=== PATIENT | male | born 1935 | race Caucasian/White ===

== ENCOUNTER 2016-12-04 10:14 | Inpatient (IN) ==
[2016-12-04] MEDS ORDERED: IOPAMIDOL 100 ML BOTTLE IV ONE (10:15)
[2016-12-04] MEDS ORDERED: 0.9 % SODIUM CHLORIDE 1,000 ML IV ONE ×2 (11:03→15:43)
[2016-12-04 11:05] LABS: Mean Cell Volume 92.3 fL (80.0-100.0); Mean Corpuscular HGB Conc 32.7 g/dL (31.0-36.0); Mean Corpuscular Hemoglobin 30.2 pg (26.0-34.0); Platelet Count 272 K/mcL (140-440); Red Cell Distribution Width 13.4 % (11.5-14.5)
[2016-12-04 11:25] LABS: ALT/SGPT 19 U/l (0-40); Albumin 3.7 gm/dL (3.2-5.2); Albumin/Globulin Ratio 1.1 (1.0-2.3); Alkaline Phosphatase 52 U/L (39-117); Blood Urea Nitrogen 24 mg/dl (8-23)
[2016-12-04 11:42] LABS: Band Neutrophils % 62 % (0-10); Lymphocytes % 10 % (15-49); Metamyelocytes % 3 % (0-0); Monocytes % (Manual) 2 % (1-12); Platelet Estimate NORMAL (NORMAL); RBC Morphology NORMAL (NORMAL); Segmented Neutrophils % 23 % (38-78)
[2016-12-04] MEDS: 0.9 % SODIUM CHLORIDE 1,000 ML IV SCH ×3 (12:32→21:44)
[2016-12-04] MEDS: 0.9 % SODIUM CHLORIDE 250 ML IV SCH ×2 (12:32→15:27)
[2016-12-04] MEDS ORDERED: LIDOCAINE JEL 2% 1 TUBE 30GM TOPICAL ONE (12:42)
[2016-12-04 13:26] LABS: Appearance,Urine HAZY; Bacteria,Urine 0 /hpf (0); Bilirubin,Urine NEG (NEG); Color,Urine YELLOW; Glucose,Urine (UA) NEGATIVE (NEG); Leukocyte Esterase,Urine NEG /uL (NEG); Mucus,Urine MANY /hpf (0); Nitrate,Urine NEG (NEG); Protein,Urine 30 mg/dL (NEG); Specific Gravity,Urine 1.024 (1.000-1.035); Urine Blood NEG mg/dL (<0.03); Urine Hyaline Cast 18 /lpf (0-2); Urine RBC 3 /hpf (0-1); Urine Squamous Epithelial Cell < 1 /hpf (0-4); Urine WBC 3 /hpf (0-4); Urobilinogen,Urine NEG (NEG)
--- NOTE | 2016-12-04 14:27 | XRay Report ---
HISTORY: Reason for Exam:belly pain FINDINGS: Free intra-abdominal air is present beneath both left and right diaphragm. There are couple air-fluid levels in nondilated large and small intestine within the mid abdomen. Small infiltrate is present laterally at the left lung base. This could be pneumonia or atelectasis. There are degenerative changes in the thoracic and lumbar spine. IMPRESSION: Free intra-abdominal air. Unless the patient has had recent abdominal surgery, perforated bowel should be suspected. Small left lower lobe pulmonary infiltrate Dr. Rousseau was called with results Interpreted and Authenticated by: Camilo Weller 12/04/16
--- NOTE | 2016-12-04 14:41 | Emergency Department Note ---
Nausea/Vomiting/Diarrhea HPI - General Chief complaint: Nausea/Vomiting/Diarrhea Stated complaint: n/v/d for 4 days Time Seen by Provider: 12/04/16 11:01 Source: patient, family Mode of arrival: EMS Limitations: no limitations - History of Present Illness HPI Narrative: 81-year-old male with a history of nausea, vomiting and diarrhea present for the past 3 days. started on Sunday night. Diarrhea frequently early this morning. No blood in the stools. he has had generalized lower abdominal pain for the past 2 days in the both the right and the left lower quadrant. He is afebrile. Denies constipation, hematemesis or melena. Denies urgency, frequency or dysuria - Related Data Home Medications Medication Instructions Recorded Confirmed Aspirin [Ecotrin] 81 mg PO DAILY 03/18/15 12/04/16 Donepezil [Aricept] 5 mg PO HS 03/18/15 12/04/16 Finasteride [Proscar] 5 mg PO DAILY 03/18/15 12/04/16 Omeprazole [Prilosec] 20 mg PO DAILY 03/18/15 12/04/16 Pravastatin [Pravachol] 40 mg PO HS 03/18/15 12/04/16 Allergies Allergy/AdvReac Type Severity Reaction Status Date / Time No Known Drug Allergies Allergy Verified 12/04/16 10:25 Review of Systems All systems ED: reviewed and negative except as stated. Constitutional: Denies: fever Eyes: Denies: eye pain ENT ED: Denies: ear pain Cardiovascular: Denies: chest pain, palpitations Respiratory: Denies: cough Gastrointestinal: Reports: abdominal pain, nausea, vomiting, diarrhea. Denies: constipation, hematemesis, melena, hematochezia Genitourinary: Reports: as per HPI. Denies: urgency, dysuria, frequency Musculoskeletal: Reports: back pain Integumentary: Denies: rash Neurological: Denies: headache Psychiatric: Denies: anxiety Endocrine: Denies: fatigue Hematological/Lymphatic: Denies: easy bleeding Allergic/Immunologic: Denies: facial swelling Past Medical History - Past Medical History Medical history: Reports: other (high cholesterol and GERD memory issues) Physical Exam - General Limitations: no limitations General appearance: alert - Head Head exam: atraumatic, normocephalic - Eye Eye exam: Present: normal appearance, PERRL - ENT ENT exam: normal exam, normal oropharynx - Neck Neck exam: Present: normal inspection, full ROM. Absent: trachea midline - Chest Chest inspection: Present: normal inspection, symmetric chest wall rise - Respiratory Respiratory exam: Present: normal lung sounds bilaterally. Absent: respiratory distress, wheezes - Cardiovascular Cardiovascular exam: Present: regular rate, normal rhythm. Absent: bradycardia , tachycardia, irregular rhythm - Abdominal Exam Abdominal exam: Present: soft. Absent: distention, tenderness, guarding, rebound, rigidity - exam: Present: normal inspection - Extremities Exam Extremities exam: Present: normal inspection, full ROM - Back Exam Back exam: Present: normal inspection, full ROM. Absent: tenderness - Neurological Exam Neurological exam: Present: alert, oriented X3, CN II-XII intact - Psychiatric Psychiatric exam: Present: normal affect, normal mood - Skin Skin exam: Present: warm, dry, intact, normal color Course Vital Signs Temperature 98.7 F 12/04/16 10:21 Pulse Rate 88 12/04/16 10:21 Respiratory Rate 16 12/04/16 10:21 Blood Pressure 99/74 12/04/16 10:21 Pulse Oximetry (%) 95 12/04/16 10:21 Temperature 98.7 F 12/04/16 10:21 Pulse Rate 83 12/04/16 15:26 Respiratory Rate 24 12/04/16 15:26 Blood Pressure 100/88 12/04/16 15:26 Pulse Oximetry (%) 95 12/04/16 15:26 Nausea/Vomiting/Diarrhea - [facility] Narrative Medical decision making narrative: WBC was 9000, with 63 bands, 23 segs. A two-view x-ray reveals free air and CT of the abdomen with Gastrografin is being performed. The Eren has been informed and he states is okay to give the Gastrografin. Chest was clear. The chem panel creatinine 1.5 The lactic was elevated at 4. ct shows probable peptic perforation. Dr Jason here to elvaluate at 4:10 pm - Lab Data Result diagrams: 12/04/16 10:35 12/04/16 10:35 Lab Results 12/04/16 12/04/16 12/04/16 Range/Units 10:35 10:35 12:48 WBC 9.0 (4.5-11.0) K/mcL RBC 5.00 (4.50-5.90) M/mcL Hgb 15.1 (13.5-16.5) g/dL Hct 46.2 (41.0-55.0) % MCV 92.3 (80.0-100.0) fL MCH 30.2 (26.0-34.0) pg MCHC 32.7 (31.0-36.0) g/dL RDW 13.4 (11.5-14.5) % Plt Count 272 (140-440) K/mcL MPV 9.3 (7.4-10.4) fL Total Counted 100 Seg Neutrophils % 23 L (38-78) % Band Neutrophils % 62 H (0-10) % Lymphocytes % 10 L (15-49) % Monocytes % (Manual) 2 (1-12) % Metamyelocytes % 3 H (0-0) % Platelet Estimate Normal (NORMAL) RBC Morphology Normal (NORMAL) VBG Lactic Acid (0.5-2.2) mmol/L Sodium 135 (133-145) mmol/L Potassium 3.6 (3.3-5.1) mmol/L Chloride 96 (96-108) mmol/L Carbon Dioxide 20 L (22-30) mmol/L Anion Gap 19.0 H (8-16) BUN 24 H (8-23) mg/dl Creatinine 1.5 H (0.7-1.2) mg/dl GFR Calculation 43 Glucose 163 H (70-105) mg/dL Calcium 8.7 (8.6-10.4) mg/dl Total Bilirubin 0.5 (0.0-1.0) mg/dL AST 28 (0-37) U/l ALT 19 (0-40) U/l Alkaline Phosphatase 52 (39-117) U/L Total Protein 7.1 (5.9-8.4) gm/dL Albumin 3.7 (3.2-5.2) gm/dL Globulin 3.4 (2.2-3.7) gm/dL Albumin/Globulin Ratio 1.1 (1.0-2.3) Urine Color Yellow Urine Appearance Hazy Urine pH 5.0 (5.0-9.0) Ur Specific [place] 1.024 (1.000-1.035) Urine Protein 30 A (NEG) mg/dL Urine Glucose (UA) Negative (NEG) mg/dL Urine Ketones Neg (NEG) mg/dL Urine Occult Blood Neg (<0.03) mg/dL Urine Nitrate Neg (NEG) Urine Bilirubin Neg (NEG) mg/dL Urine Urobilinogen Neg (NEG) mg/dL Ur Leukocyte Esterase Neg (NEG) /uL Urine RBC 3 H (0-1) /hpf Urine WBC 3 (0-4) /hpf Ur Squamous Epith Cells < 1 (0-4) /hpf Urine Bacteria 0 (0) /hpf Hyaline Casts 18 H (0-2) /lpf Urine Mucus Many A (0) /hpf Ur Culture Indicated? No 12/04/16 Range/Units 14:50 WBC (4.5-11.0) K/mcL RBC (4.50-5.90) M/mcL Hgb (13.5-16.5) g/dL Hct (41.0-55.0) % MCV (80.0-100.0) fL MCH (26.0-34.0) pg MCHC (31.0-36.0) g/dL RDW (11.5-14.5) % Plt Count (140-440) K/mcL MPV (7.4-10.4) fL Total Counted Seg Neutrophils % (38-78) % Band Neutrophils % (0-10) % Lymphocytes % (15-49) % Monocytes % (Manual) (1-12) % Metamyelocytes % (0-0) % Platelet Estimate (NORMAL) RBC Morphology (NORMAL) VBG Lactic Acid 4.1 H* (0.5-2.2) mmol/L Sodium (133-145) mmol/L Potassium (3.3-5.1) mmol/L Chloride (96-108) mmol/L Carbon Dioxide (22-30) mmol/L Anion Gap (8-16) BUN (8-23) mg/dl Creatinine (0.7-1.2) mg/dl GFR Calculation Glucose (70-105) mg/dL Calcium (8.6-10.4) mg/dl Total Bilirubin (0.0-1.0) mg/dL AST (0-37) U/l ALT (0-40) U/l Alkaline Phosphatase (39-117) U/L Total Protein (5.9-8.4) gm/dL Albumin (3.2-5.2) gm/dL Globulin (2.2-3.7) gm/dL Albumin/Globulin Ratio (1.0-2.3) Urine Color Urine Appearance Urine pH (5.0-9.0) Ur Specific [place] (1.000-1.035) Urine Protein (NEG) mg/dL Urine Glucose (UA) (NEG) mg/dL Urine Ketones (NEG) mg/dL Urine Occult Blood (<0.03) mg/dL Urine Nitrate (NEG) Urine Bilirubin (NEG) mg/dL Urine Urobilinogen (NEG) mg/dL Ur Leukocyte Esterase (NEG) /uL Urine RBC (0-1) /hpf Urine WBC (0-4) /hpf Ur Squamous Epith Cells (0-4) /hpf Urine Bacteria (0) /hpf Hyaline Casts (0-2) /lpf Urine Mucus (0) /hpf Ur Culture Indicated? Disposition Clinical Impression: Perforated peptic ulcer Disposition: Xfer As Inpt ([facility]) Condition: Undetermined Referrals: Naman Ward MD [Primary Care Provider] -
[2016-12-04] MEDS ORDERED: PIPERACILLIN SODIUM/TAZOBACTAM 3.375 GM in DEXTROSE 5% IN WATER 50 ML IV SCH (14:45)
--- NOTE | 2016-12-04 15:45 | Cat Scan Report ---
CLINICAL INFORMATION: Reason for Exam:free air on plain film xray and abdominal pain COMPARISON: None. Patient was imaged following dilute Gastrografin contrast given orally. No IV contrast was given due to elevated creatinine level. The patient was scanned from the lung bases the symphysis pubis. Sagittal and coronal reformats were created. FINDINGS:There is mild pulmonary fibrosis in both lungs with the greatest involvement in the lingula and the anterior basal segment left lower lobe. There is mild honeycombing in the lingula. Densely calcified plaques are present in the left anterior descending, left main and circumflex coronary arteries. There is moderate involvement of the right coronary. There are several small scattered bubbles of air throughout the mid and upper abdomen bilaterally. There are also small nonlocalizing pockets of free fluid in the peritoneal space in both sides of the mid and upper abdomen as well some free fluid in the lesser sac. There is no extravasation of the oral contrast from the stomach or small bowel into the peritoneum. The wall of the pylorus appears abnormally thickened measuring up to 1.5 cm. And also is not clearly identified. No free peritoneal air or fluid are seen adjacent to the pylorus. Despite of the thickening of the wall, there is no evidence of gastric outlet obstruction. The small bowel pattern appears normal. The colon is decompressed. There are scattered diverticula throughout the colon with the greatest number in the sigmoid. There is no evidence of acute diverticulitis. No free fluid is present deep in the pelvis. There is no evidence of an abscess in the abdomen or pelvis. A fat-containing umbilical hernia is noted. 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 There are multiple radiation implant seeds in the prostate. No mass is seen in or adjacent to the prostate. No lytic or blastic bone metastasis are present. Images of the liver, spleen, pancreas and adrenals show no abnormality. There are no gallstones and no dilatation of the bile ducts. A small simple cyst is present in the left kidney. The kidneys are otherwise normal. IMPRESSION: Small amount free fluid and free air in the mid and upper abdomen bilaterally. This does not localize. Abnormally thickened wall of the pylorus which may due to peptic ulcer disease or muscle hyperplasia. Diverticulosis with the greatest involvement in the sigmoid colon Dr. Rousseau was called with results Interpreted and Authenticated by: Camilo Weller 12/04/16
[2016-12-04] MEDS ORDERED: 0.9 % SODIUM CHLORIDE 250 ML IV SCH (16:15)
--- NOTE | 2016-12-04 16:42 | General Surg History&Physical ---
History of Present Illness Patient information: Note initiated : 12/04/16 at 4:37 pm Service Date, if different from initiated Date: [] Patient: Johnson Fowler a 81 y/o M admitted on for n/v/d for 4 days. Chief Complaint: [Abdominal pain ,nausea, and vomiting] HPI: Mr. Fowler is a 81 year old male 3 day history of recurrent abdominal pain with nausea and vomiting and a 1 day history of diarrhea. The patient had acute ons of pain on Sunday evening. This was followed by multiple episodes of nausea and vomiting. The emesis was primarily bile. He had some diarrhea today but not prior to today. He did not have rectal bleeding or melena. He did not have hematochezia.he was seen in the emergency room were abdominal exam revealed that tender abdomen. Plain films of the abdomen revealed large volume of bilateral subphrenic air. CT scan shows extensive air in the upper abdomen and some air in the lesser sac. There is a suggestion of thickening of the pylorus. There is no evidence of gastric outlet obstruction. There was no spillage of contrast in the upper abdomen.he is felt to have a perforated viscus and will be explored urgently. Review of Systems - Constitutional malaise, weakness - EENT Nose, mouth and throat: abnormal hearing - Cardiovascular no chest pain at rest, no chest pain with activity, no dyspnea on exertion, no palpatations, no syncope - Respiratory no cough, no dyspnea on exertion, no wheezing, no chest congestion - Gastrointestinal abdominal pain, diarrhea, heartburn, nausea, vomiting - Musculoskeletal abnormal gait, arthralgias, joint swelling, myalgias, stiffness - Integumentary no changing lesions, no pruritus, no rash - Neurological abnormal gait, abnormal hearing, no confusion, no convulsions, no dizziness, no headache(s), no numbness, no tremor(s), no vertigo - Psychiatric no anxiety, no confusion, no depression, no irritability - Endocrine no cold intolerance, no fatigue - Hematologic/Lymphatic no easy bleeding, no easy bruising, no lymphadenopathy - Allergic/Immunologic no tongue swelling, no throat swelling, no uticaria, no wheezing, no lip swelling Past History Past medical history: gastroesophageal reflux disease No history of heart or lung disease prostate cancer Past surgical history: left total knee arthroplasty Past family history: both parents advanced age due to natural causes Past social history: arried Former tobacco use No alcohol use No drug use Retired Medications and Allergies Home Medications Medication Instructions Recorded Confirmed Type Aspirin [Ecotrin] 81 mg PO DAILY 03/18/15 12/04/16 History Donepezil [Aricept] 5 mg PO HS 03/18/15 12/04/16 History Finasteride [Proscar] 5 mg PO DAILY 03/18/15 12/04/16 History Omeprazole [Prilosec] 20 mg PO DAILY 03/18/15 12/04/16 History Pravastatin [Pravachol] 40 mg PO HS 03/18/15 12/04/16 History Allergies Allergy/AdvReac Type Severity Reaction Status Date / Time No Known Drug Allergies Allergy Verified 12/04/16 10:25 Exam Temp Pulse Resp BP Pulse Ox 98.7 F 85 16 117/66 93 12/04/16 10:21 12/04/16 16:18 12/04/16 16:18 12/04/16 16:18 12/04/16 16:18 - General physical appearance well developed, well nourished, no distress - Eyes PERRL, normal ocular movement - ENT normal pinna, normal nares, normal mucosa, no hearing loss, no congestion - Head Head exam IM: Present: atraumatic, normocephalic - Neck no masses, no bruits, trachea midline, no lymphadectomy, no venous distension - Cardiovascular Cardiovascular exam IM: Present: normal rate and rhythm, RRR, +S1, +S2. Absent : JVD Intensity IM: 2/6 - Respiratory normal expansion, normal respiratory effort, clear to percussion, clear to auscultation - Abdomen Abdomen: Present: soft, tender, bowel sounds, distended (distended abdomen with diffuse tenderness present and upper and lower quadrants active bowel sounds; guarding with rigidity and rebound) Hernia: Present: none - Genitourinary Present: normal penis with no external lesions - Integumentary Present: no rash, no growths, no abnormal pigmentation - Neurologic Present: normal coordination, normal sensation - Musculoskeletal Present: normal gait, normal posture - Psychiatric Present: oriented to time, oriented to person, oriented to place, speech is normal, memory intact Assessment and Plan (1) Perforated viscus patient counseled in the presence of his for exploratory laparotomy for treatment of perforated viscus. Preoperative labs and x-rays have been completed. He has received perioperative antibiotics. Status: Acute (2) GERD (gastroesophageal reflux disease) Status: Acute (3) Prostate cancer Status: Acute
--- NOTE | 2016-12-04 16:44 | XRay Report ---
HISTORY: Reason for Exam:pre op for abdominal surgery with perforated bowel FINDINGS: Mildly prominent increased interstitial lung markings are present bilaterally. The preceding CT scan revealed the presence of mild pulmonary fibrosis, especially in the lingula and anterior basal segment left lower lobe. There is also a prominent epicardial fat pad which partially obscures the left costophrenic sulcus. There is no cardiomegaly or congestive heart failure. The mediastinum and cari are normal. 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 IMPRESSION: Mild pulmonary fibrosis Interpreted and Authenticated by: Camilo Weller 12/04/16
[2016-12-04] MEDS ORDERED: ROCURONIUM 10 MG/ML ML IV ONE (17:45)
[2016-12-04] MEDS ORDERED: SUCCINYLCHOLINE 20 MG/ML ML IV ONE (17:45)
[2016-12-04] MEDS ORDERED: NEOSTIGMINE 1 MG/ML VIAL IV ONE (17:45)
[2016-12-04] MEDS ORDERED: PROPOFOL 200 MG/20 ML VIAL IV ONE (17:45)
[2016-12-04] MEDS ORDERED: LIDOCAINE HCL/PF 100 MG/5 ML SYRINGE IV ONE (17:45)
[2016-12-04] MEDS ORDERED: DEXAMETHASONE 10 MG/ML VIAL ONE (17:45)
[2016-12-04] MEDS ORDERED: ONDANSETRON 4 MG/2 ML VIAL ONE (17:45)
[2016-12-04] MEDS ORDERED: GLYCOPYRROLATE 0.2 MG/ML VIAL IV ONE (17:45)
[2016-12-04] MEDS ORDERED: fentaNYL 100 MCG/2 ML VIAL IV ONE (17:45)
[2016-12-04] MEDS ORDERED: MIDAZOLAM 2 MG/2 ML VIAL ONE (17:45)
[2016-12-04] MEDS ORDERED: NALBUPHINE 10 MG/ML AMPUL IV ONE (17:45)
--- NOTE | 2016-12-04 19:41 | Brief Operative Note ---
Date of procedure: 12/04/16 Pre-op diagnosis: perforated viscus Post-op diagnosis: other (perforated viscus with diffuse peritonitis; no exact source seen) Procedure: exploratory laparotomy with total peritoneal lavage Grafts/Implants: No Anesthesia: GETA Findings: free air and diffuse large volume purulent fluid in upper and lower abdomen ; no evidence of gastric or duodenal perforation. large volume of purulence in base of small bowel mesentery involving primarily the mid small bowel and extending into the pelvis and surrounding the sigmoid colon and rectum. minimal thickening of wall of sigmoid above the peritoneal reflection. no area of perforation of sigmoid noted. free floating vegetable matter in pelvis. Complications: none Surgeon: Arcelia Jason Estimated blood loss (cc): 50 Specimens Removed/Pathology: other (culture of peritoneal fluid) Condition: stable Disposition: PACU
[2016-12-04] MEDS ORDERED: ONDANSETRON 4 MG/2 ML VIAL IV PRN ×2 (19:59→21:19)
[2016-12-04] MEDS ORDERED: IPRATROPIUM/ALBUTEROL 3 ML AMPUL.NEB NEB PRN (19:59)
[2016-12-04] MEDS ORDERED: MEPERIDINE 25 MG/ML SYRINGE IV PRN (19:59)
[2016-12-04] MEDS ORDERED: NALOXONE HCL 0.4 MG/ML VIAL IV PRN ×3 (19:59→21:19)
[2016-12-04] MEDS ORDERED: diphenhydrAMINE 50 MG/ML VIAL IV PRN (19:59)
[2016-12-04] MEDS ORDERED: HYDROmorphone 2 MG/ML SYRINGE IV PRN (19:59)
[2016-12-04] MEDS ORDERED: ACETAMINOPHEN 1,000 MG/100 ML BOTTLE IV ONE (19:59)
[2016-12-04] MEDS ORDERED: LACTATED RINGERS 250 ML IV PRN (19:59)
[2016-12-04] MEDS ORDERED: fentaNYL 100 MCG/2 ML VIAL IV PRN (19:59)
[2016-12-04] MEDS ORDERED: BENZOCAINE/MENTHOL 1 LOZENGE PO PRN (19:59)
[2016-12-04] MEDS ORDERED: LACTATED RINGERS 1,000 ML IV SCH (20:00)
[2016-12-04] MEDS ORDERED: BACITRACIN 50,000 UNIT VIAL IR ONE (20:03)
[2016-12-04] MEDS ORDERED: metroNIDAZOLE 500 MG/100 ML BAG IV SCH (20:15)
[2016-12-04] MEDS: FLUMAZENIL 0.1 MG/ML ML IV PRN ×2 (20:35→20:39)
[2016-12-04] MEDS ORDERED: ACETAMINOPHEN 1,000 MG/100 ML BOTTLE IV PRN (21:01)
[2016-12-04] MEDS: 0.9 % SODIUM CHLORIDE 10 ML SYRINGE IV SCH (21:45)
[2016-12-04] MEDS ORDERED: PIPERACILLIN SODIUM/TAZOBACTAM 3.375 GM VIAL IV ONE (22:01)
[2016-12-04] MEDS: PIPERACILLIN SODIUM/TAZOBACTAM 3.375 GM in DEXTROSE 5% IN WATER 50 ML IV SCH (22:10)
[2016-12-04 23:37] LABS: ALT/SGPT 14 U/l (0-40); Albumin 2.4 gm/dL (3.2-5.2); Albumin/Globulin Ratio 0.9 (1.0-2.3); Alkaline Phosphatase 35 U/L (39-117); Bilirubin,Direct < 0.2 mg/dL (0.0-0.3); Blood Urea Nitrogen 23 mg/dl (8-23); Gamma Glutamyl Transpeptidase 5 U/L (8-61); Magnesium 1.5 mg/dL (1.6-2.5); Uric Acid 5.1 mg/dL (2.5-8.0)
[2016-12-04] MEDS: metroNIDAZOLE 500 MG/100 ML BAG IV SCH (23:50)
[2016-12-05] MEDS ORDERED: MAGNESIUM SULFATE 32.48 MEQ in DEXTROSE 5% IN WATER 50 ML IV ONE (00:01)
[2016-12-05] MEDS ORDERED: MAGNESIUM SULFATE 4 GM/100 ML BAG IV ONE (00:07)
[2016-12-05] MEDS: 0.9 % SODIUM CHLORIDE 10 ML SYRINGE IV SCH ×3 (05:01→22:29)
[2016-12-05] MEDS: 0.9 % SODIUM CHLORIDE 1,000 ML IV SCH ×4 (05:01→22:29)
[2016-12-05] MEDS ORDERED: PIPERACILLIN SODIUM/TAZOBACTAM 3.375 GM VIAL IV ONE (05:23)
[2016-12-05] MEDS: PIPERACILLIN SODIUM/TAZOBACTAM 3.375 GM in DEXTROSE 5% IN WATER 50 ML IV SCH ×4 (05:27→22:29)
[2016-12-05 05:39] LABS: Mean Cell Volume 93.9 fL (80.0-100.0); Mean Corpuscular HGB Conc 32.6 g/dL (31.0-36.0); Mean Corpuscular Hemoglobin 30.6 pg (26.0-34.0); Platelet Count 241 K/mcL (140-440); RBC 4.27 M/mcL (4.50-5.90); Red Cell Distribution Width 14.3 % (11.5-14.5)
[2016-12-05] MEDS: metroNIDAZOLE 500 MG/100 ML BAG IV SCH ×4 (05:57→23:41)
[2016-12-05 06:05] LABS: ALT/SGPT 16 U/l (0-40); Albumin 2.5 gm/dL (3.2-5.2); Alkaline Phosphatase 34 U/L (39-117); Bilirubin,Direct < 0.2 mg/dL (0.0-0.3); Blood Urea Nitrogen 25 mg/dl (8-23); Gamma Glutamyl Transpeptidase 7 U/L (8-61); Magnesium 2.7 mg/dL (1.6-2.5); Uric Acid 5.1 mg/dL (2.5-8.0)
[2016-12-05] MEDS: ACETAMINOPHEN 1,000 MG/100 ML BOTTLE IV PRN (07:04)
[2016-12-05] MEDS: PANTOPRAZOLE 40 MG VIAL IV SCH (08:00)
[2016-12-05 08:10] LABS: Band Neutrophils % 60 % (0-10); Lymphocytes % 12 % (15-49); Metamyelocytes % 3 % (0-0); Monocytes % (Manual) 2 % (1-12); Platelet Estimate NORMAL (NORMAL); RBC Morphology NORMAL (NORMAL); Segmented Neutrophils % 23 % (38-78)
--- NOTE | 2016-12-05 13:13 | Consultation ---
DATE OF CONSULTATION: 12/05/2016 REQUESTING PHYSICIAN: Arcelia Jason MD. REASON FOR CONSULTATION: Management of medical issues. HISTORY OF CHIEF COMPLAINT: The patient is an 81-year-old who was admitted with abdominal pain that started 3 days prior to presentation, along with nausea and diarrhea. The patient was found to have diffuse peritonitis with free air and likely bowel perforation. He underwent exploratory laparotomy. Postoperatively, Hospitalist Service was consulted. The patient has received over 5000 mL crystalloids along with antibiotics, including Zosyn and Flagyl. At the time of examination, the patient is accompanied with his . He is alert, responsive. He is experiencing slight abdominal discomfort and pain is pronounced on episodes of coughing, but denies fever, chills, diarrhea, headache, or photophobia. He denies recent or remote heartburn. He carries a history of BPH along with GERD, hyperlipidemia, and dementia. He does not endorse to alcoholism or active smoking. He has had intermittent constipation. REVIEW OF SYSTEMS: A 10-point review of system was performed and negative except the ones discussed above. PAST MEDICAL HISTORY: 1. History of dementia. 2. BPH. 3. GERD. 4. Hyperlipidemia. CURRENT MEDICATIONS: 1. Aspirin 81 mg. 2. Donepezil 5 mg. 3. Finasteride 5 mg. 4. Omeprazole 20 mg. 5. Pravastatin 40 mg. SOCIAL HISTORY: The patient lives in [place] along with . He quit smoking over 35 years ago. No history of alcohol or drug use. FULL CODE STATUS. He sees primary care physician, Naman Ward MD. FAMILY HISTORY: None significant. PHYSICAL EXAMINATION: GENERAL: The patient is alert and oriented. He denies any active distress. BMI 31. Height 5 feet 8 inches. VITAL SIGNS: Blood pressure 127/76, respiratory rate 18, temperature 98, pulse 81, sats 94% on 2 liters of oxygen. HEENT: Pupils symmetric. Oral cavity dry. NG tube in place, draining bilious output. No ear or nose discharge. NECK: No lymphadenopathy. HEART: S1, S2 regular rhythm. ESM grade 1. Diminished breath sounds. ABDOMEN: Distended. Negative bowel sounds. LOWER EXTREMITIES: No cyanosis or clubbing. No joint swelling. SKIN: No suspicious lesions. PSYCHIATRIC: Alert and cooperative. No anxiety. NEURO: Nonfocal, moving all four extremities. LABS AND IMAGING: Abdominal fluid evaluation: Gram-negative bacilli. White count 13.2, hemoglobin 13.1, bands 60%. INR 1.2. Lactic acid down from 4.1 to 1.8. Sodium 130, potassium 3.9, creatinine 1.2, and BUN 25. LFTs unremarkable. Calcium 7.5. UA unremarkable. ABG 7.35/44/68 on 6 liters of oxygen. Immediately postoperative EKG: Normal sinus rhythm, left axis deviation. Abdomen and pelvis CT: Free fluid and free air in the mid and upper abdomen. ASSESSMENT AND PLAN: An 81-year-old with bowel perforation, status post exploratory laparotomy. 1. Bowel perforation status post exploratory laparotomy. Managed by Surgery. 2. Acute peritonitis on broad antibiotic coverage. I would recommend covering with antifungals. 3. Severe sepsis with bandemia secondary to acute peritonitis. Continue crystalloids, antibiotics, antifungals and close hemodynamic monitoring in ICU. 4. Other prior medical issues, including history of dementia, stable. Hold home medications and resume p.o. meds once patient is able to tolerate orally and approved by Surgery. Thank you so much for the consultation. We will continue to follow alongside. AA:sumaya Job ID: [id number] Doc ID: [id number] Lion Jason M.D.
--- NOTE | 2016-12-05 14:42 | General Surgery Progress Note ---
Subjective Patient reports: feels better, still having pain, no flatus, no bowel movement, afebrile Narrative: Note initiated : 12/05/16 at 2:39 pm Service Date, if different from initiated Date: [] Patient: Johnson Fowler 81 y/o M admitted on 12/04/16 for N/V/D for 4 Days/ Bowel Perforation. Chief Complaint: [patient had a very good night and appears to be clinically stable. He denies chest n or shortness of breath. His abdominal pain is well- controlled with the present dose of fentanyl.his ARETHA drains have a small volume of serosanguineous fluid. No bilious drainage noted. His heart rate is in the 80s and is regular. his blood pressure remained stable. Urine output is adequate. Labs are good except for mild elevation in BUN. hE DOES NOT HAVE SIGNIFICANT PERIPHERAL EDEMA.] Objective Temp Pulse Resp BP Pulse Ox 99.7 F H 81 20 139/81 97 12/05/16 12:00 12/05/16 08:40 12/05/16 13:00 12/05/16 13:00 12/05/16 13:00 - Additional Data Intake & Output - Last 24 hours: Intake & Output 12/03/16 12/04/16 12/05/16 12/06/16 05:59 05:59 05:59 05:59 Intake Total 1300 / 6850 1100 / 1100 Output Total 557 / 1087 670 / 670 Balance 743 / 5763 430 / 430 Weight 208 lb 8 oz - Additional Exam lying in bed supine in no acute distress HEENT--- no abnormality noted no scleral edema Neck--- supple no JVD Chest----ood breath sounds bilaterally without wheezes rales or rhonchi Heart--- regular rhythm with occasional ectopic; no murmur Abdomen--- minimal distention with good active bowel sounds; incision looks good ; ARETHA drainage serosanguineous and all 4 drains Extremities--- no significant peripheral edema Neurologic exam--- no focal deficit - Labs 12/05/16 03:30 12/05/16 03:30 Diabetes panel 12/04/16 12/04/16 12/05/16 Range/Units 21:35 22:50 03:30 Sodium Cancelled 135 138 Potassium Cancelled 4.8 3.9 Chloride Cancelled 101 104 Carbon Dioxide Cancelled 19 L 22 BUN Cancelled 23 25 H Creatinine Cancelled 1.2 1.2 Glucose Cancelled 168 H 158 H Calcium Cancelled 6.8 L 7.0 L AST Cancelled 31 24 ALT Cancelled 14 16 Alkaline Phosphatase Cancelled 35 L 34 L Total Protein Cancelled 5.1 L 5.0 L Albumin Cancelled 2.4 L 2.5 L Triglycerides Cancelled 61 63 Calcium panel 12/04/16 12/04/16 12/05/16 Range/Units 21:35 22:50 03:30 Calcium Cancelled 6.8 L 7.0 L Phosphorus Cancelled 3.2 2.9 Albumin Cancelled 2.4 L 2.5 L Pituitary panel 12/04/16 12/04/16 12/05/16 Range/Units 21:35 22:50 03:30 Sodium Cancelled 135 138 Potassium Cancelled 4.8 3.9 Chloride Cancelled 101 104 Carbon Dioxide Cancelled 19 L 22 BUN Cancelled 23 25 H Creatinine Cancelled 1.2 1.2 Glucose Cancelled 168 H 158 H Calcium Cancelled 6.8 L 7.0 L Adrenal panel 12/04/16 12/04/16 12/05/16 Range/Units 21:35 22:50 03:30 Sodium Cancelled 135 138 Potassium Cancelled 4.8 3.9 Chloride Cancelled 101 104 Carbon Dioxide Cancelled 19 L 22 BUN Cancelled 23 25 H Creatinine Cancelled 1.2 1.2 Glucose Cancelled 168 H 158 H Calcium Cancelled 6.8 L 7.0 L Total Bilirubin Cancelled 0.4 0.5 AST Cancelled 31 24 ALT Cancelled 14 16 Alkaline Phosphatase Cancelled 35 L 34 L Total Protein Cancelled 5.1 L 5.0 L Albumin Cancelled 2.4 L 2.5 L Assessment and Plan (1) Perforated viscus Status: Acute Assessment and plan: patient will be continued on present therapy. We will monitor urine output closely. Current Visit: Yes (2) GERD (gastroesophageal reflux disease) Status: Acute Current Visit: Yes (3) Prostate cancer Status: Acute Current Visit: Yes - Time Spent With Patient Total time spent is greater than 50% in coordination of care (as documented) at patient's floor/unit and/or counseling patient:
--- NOTE | 2016-12-05 16:11 | Operative Note ---
DATE OF OPERATION: 12/04/2016 PREOPERATIVE DIAGNOSIS: Perforated viscus. POSTOPERATIVE DIAGNOSIS: Perforated viscus with diffuse peritonitis. No definitive source of perforation found. PROCEDURE: Exploratory laparotomy with total peritoneal lavage and drainage. SURGEON: Arcelia Jason MD. FINDINGS: 1. Large volume of free air with diffuse large volume purulent fluid in entire abdomen, subphrenic and subhepatic space, base of small bowel, both gutters, pelvis. No evidence of gastric or duodenal inflammation or perforation. 2. Large volume of purulence in the base of the small bowel mesentery involving primarily the mid small bowel and extending into the pelvis and surrounding the sigmoid colon and rectum. 3. Minimal thickening of wall of sigmoid above the peritoneal reflection. 4. No area of perforation of the sigmoid noted. 5. Free floating vegetable matter in pelvis confirming a perforation. ANESTHESIA: General endotracheal anesthesia. DESCRIPTION OF PROCEDURE: Under general anesthesia, the patient's abdomen was prepped and draped in the sterile field. Upper midline incision was made immediately above the umbilicus. The large volume of free air was encountered. The incision was extended cephalad initially. There was a large volume of fluid in the upper abdomen in the subhepatic space, as well as in the subphrenic space. Cultures were taken. These areas were suctioned and irrigated. There was a small amount of fluid in the perisplenic area and some fluid in the left gutter, but there was no major inflammation of the left colon. This area was irrigated also until clear. There was a small amount of purulence over the omentum, but this was a dishwater-like purulence without a lot of inflammatory, fibrinous exudate. This was irrigated with copious amounts of saline. The right colon and cecum were evaluated. There was fluid in the right gutter, but there was no evidence of major inflammation of the cecum or ascending colon. Next, the small bowel was eviscerated, and as the small bowel was eviscerated it was noted that there was a large amount of inflammation on that small bowel which was lying against the retroperitoneum at the base of the mesentery. This was totally pulled from the peritoneal cavity. Copious irrigation was carried out. Using a moist sponge, the inflammatory peel was wiped off of the bowel. The entire small bowel was then inspected starting at the ligament of Treitz and extending to the cecum. Though there was an inflammatory peel in some areas, there was actually no intense inflammatory response, and there was no thickening of the bowel. Next, the base of the small bowel mesentery was irrigated and using a moist sponge the small amount of residual inflammatory peel was removed. The sigmoid colon and descending colon were inspected. The distal sigmoid had a very small amount of thickening on the left lateral side near the mesenteric border. This area was closely inspected and all fibrinous debris was removed, and there was no documented perforation. The visible sigmoid was then copiously irrigated. Air was pushed from the descending colon and sigmoid down to the distal colorectal junction and the abdomen was filled with water. There were no air bubbles to suggest an air leak. Once this was done, I did another thorough irrigation of the entire peritoneal cavity. During the second irrigation, there was a small amount of vegetable matter that floated free from the pelvis. The visible pelvis, sigmoid and proximal rectum were evaluated once more but no perforation was noted. It was felt that the patient might have had a microperforation with leakage and sealing. I therefore decided not to do a diverting colostomy. The patient had no evidence that he would have any immediate leakage. Drains were chosen and #10 flat ARETHA drains were placed on the lateral aspect of the sigmoid and the left gutter and the right gutter. The one in the right gutter also drained the base of the small bowel mesentery. Another drain was placed in the subhepatic space, and a drain was placed in the left subphrenic space. The left subphrenic drain was pushed all the way up to the hiatus. Sponge, needle, instrument and blade counts were verified as correct. The peritoneum was closed with running #1 Prolene. The subcutaneous tissue was irrigated with 500 mL of bacitracin solution, and the incision was then covered with bacitracin powder. The subcutaneous fat was closed with running 2-0 Monocryl. The skin was closed with elliot. The drains were secured with 2-0 nylon. Dressings were placed. The patient tolerated the procedure well. He was successfully awakened, extubated with good __ status and transferred to the postanesthetic care unit with stable vital signs. LCS:[email or web address] Job ID: [id number] Doc ID: [id number] Arcelia Jason M.D.
[2016-12-06] MEDS: PIPERACILLIN SODIUM/TAZOBACTAM 3.375 GM in DEXTROSE 5% IN WATER 50 ML IV SCH ×4 (04:44→23:38)
[2016-12-06 05:21] LABS: Mean Cell Volume 93.2 fL (80.0-100.0); Mean Corpuscular HGB Conc 32.8 g/dL (31.0-36.0); Mean Corpuscular Hemoglobin 30.6 pg (26.0-34.0); Platelet Count 241 K/mcL (140-440); RBC 3.81 M/mcL (4.50-5.90); Red Cell Distribution Width 14.3 % (11.5-14.5)
[2016-12-06] MEDS ORDERED: DIGOXIN 500 MCG/2 ML AMPUL IV ONE ×2 (05:26→05:32)
[2016-12-06] MEDS ORDERED: METOPROLOL TARTRATE 5 MG/5 ML VIAL IV ONE (05:32)
[2016-12-06 05:45] LABS: ALT/SGPT 18 U/l (0-40); Albumin 2.2 gm/dL (3.2-5.2); Albumin/Globulin Ratio 0.7 (1.0-2.3); Alkaline Phosphatase 82 U/L (39-117); Bilirubin,Direct < 0.2 mg/dL (0.0-0.3); Blood Urea Nitrogen 19 mg/dl (8-23); Gamma Glutamyl Transpeptidase 8 U/L (8-61); Magnesium 2.6 mg/dL (1.6-2.5); Uric Acid 3.9 mg/dL (2.5-8.0)
[2016-12-06] MEDS: METOPROLOL TARTRATE 5 MG/5 ML VIAL IV SCH ×3 (06:07→07:04)
[2016-12-06 06:22] LABS: Band Neutrophils % 19 % (0-10); Lymphocytes % 6 % (15-49); Monocytes % (Manual) 3 % (1-12); Platelet Estimate NORMAL (NORMAL); RBC Morphology NORMAL (NORMAL); Segmented Neutrophils % 72 % (38-78)
[2016-12-06] MEDS: PANTOPRAZOLE 40 MG VIAL IV SCH (07:05)
[2016-12-06] MEDS: 0.9 % SODIUM CHLORIDE 1,000 ML IV SCH ×3 (07:06→23:38)
[2016-12-06] MEDS: ACETAMINOPHEN 1,000 MG/100 ML BOTTLE IV PRN (07:07)
[2016-12-06] MEDS: metroNIDAZOLE 500 MG/100 ML BAG IV SCH ×3 (07:12→17:00)
[2016-12-06] MEDS ORDERED: POTASSIUM PHOSPHATE 40 MEQ in DEXTROSE 5% IN WATER 500 ML IV ONE (08:00)
[2016-12-06] MEDS: 0.9 % SODIUM CHLORIDE 10 ML SYRINGE IV SCH ×3 (08:52→22:14)
--- NOTE | 2016-12-06 11:27 | Internal Med Progress Note ---
Medical - PN: Subj Patient information: Note initiated : 12/06/16 at 11:22 am Service Date, if different from initiated Date: [] Patient: Johnson Fowler 81 y/o M admitted on 12/04/16 for N/V/D for 4 Days/ Bowel Perforation. Chief Complaint: [] Interval history: 12/05-hospitalist consult postoperatively for management of medical issues. Patient underwent x-ray laparotomy for acute peritonitis/bowel perforation. Transfer to ICU postoperatively. Patient hemodynamic stable on close monitoring 12/06-omplains of distended abdomen. hemodynamic stable. NG tube draining bloody /bilious output. New onset A. fib with RVR requiring digoxin/metoprolol last night. Rate now down to 100. - Constitutional Vitals: Vital Signs Temp Pulse Resp BP Pulse Ox 98.7 F 142 H 22 106/87 98 12/06/16 07:52 12/06/16 11:02 12/06/16 11:02 12/06/16 11:01 12/06/16 11:02 Period Temp Pulse Resp BP Sys/Kennedy Pulse Ox Last 24 Hr 98.7 F-99.9 F 30-145 15-38 87-145/38-87 91-98 Intake and Output 12/05/16 12/06/16 12/06/16 21:59 05:59 13:59 Intake Total 1150 / 1150 150 / 150 1250 / 1250 Output Total 1610 / 1610 1490 / 1490 220 / 220 Balance -460 / -460 -1340 / -1340 1030 / 1030 Weight 211 lb 9.6 oz Intake & Output: Intake & Output 12/05/16 12/06/16 12/06/16 21:59 05:59 13:59 Intake Total 1150 / 1150 150 / 150 1250 / 1250 Output Total 1610 / 1610 1490 / 1490 220 / 220 Balance -460 / -460 -1340 / -1340 1030 / 1030 Weight 211 lb 9.6 oz Intake: IV 1150 / 1150 150 / 150 1250 / 1250 Sodium Chloride 0.9% 1, 1000 / 1000 1000 / 1000 000 ml @ 150 mls/hr IV . Q6H40M [facility] Rx#:[id number] OFIRMEV 1,000 mg In 100 100 / 100 ml @ 200 mls/hr IV Q6HP PRN Rx#:[id number] Zosyn 3.375 gm In 50 / 50 50 / 50 50 / 50 Dextrose 5% in Water 50 ml @ 100 mls/hr IV Q6H [facility] Rx#:[id number] Output: Gastric Drainage 230 / 230 400 / 400 Right Nare NG/OG 230 / 230 400 / 400 Drainage 200 / 200 220 / 220 ARETHA Drain 'A' 70 / 70 50 / 50 ARETHA Drain 'B" 70 / 70 90 / 90 ARETHA Drain 'C' 60 / 60 30 / 30 ARETHA Drain 'D' 50 / 50 Urine Catheter Amount 1180 / 1180 870 / 870 220 / 220 General appearance: cooperative, no acute distress Exam: distended abdomen minimally labored breathing A. fib on telemetry Foleys draining clear urine NG tubeBilious output Medical - PN: Obj Da - Labs CBC & Chem 7: 12/06/16 03:40 12/06/16 03:40 Labs: Abnormal Lab Results 12/06/16 12/06/16 12/05/16 03:40 03:40 03:30 WBC 12.8 H RBC 3.81 L Hgb 11.7 L Hct 35.5 L Seg Neutrophils % Band Neutrophils % 19 H Lymphocytes % 6 L Metamyelocytes % Chloride 109 H Carbon Dioxide 21 L BUN 25 H Glucose 158 H Calcium 7.2 L 7.0 L Phosphorus 1.5 L Magnesium 2.6 H 2.7 H GGT 7 L Alkaline Phosphatase 34 L Lactate Dehydrogenase 310 H Total Protein 5.2 L 5.0 L Albumin 2.2 L 2.5 L Albumin/Globulin Ratio 0.7 L 12/05/16 12/04/16 03:30 22:50 WBC 13.2 H RBC 4.27 L Hgb 13.1 L Hct 40.1 L Seg Neutrophils % 23 L Band Neutrophils % 60 H Lymphocytes % 12 L Metamyelocytes % 3 H Chloride Carbon Dioxide 19 L BUN Glucose 168 H Calcium 6.8 L Phosphorus Magnesium 1.5 L GGT 5 L Alkaline Phosphatase 35 L Lactate Dehydrogenase 272 H Total Protein 5.1 L Albumin 2.4 L Albumin/Globulin Ratio 0.9 L Meds: Medications Fentanyl (Sublimaze) 25 mcg IV Q2HP PRN PRN Reason: Pain Metronidazole (Flagyl) 500 mg in 100 mls @ 100 mls/hr IV Q6H [facility] Last Infusion: 12/06/16 08:53 Dose: Infused Acetaminophen (Ofirmev) 1,000 mg in 100 mls @ 200 mls/hr IV Q6HP PRN PRN Reason: Pain Last Infusion: 12/06/16 08:13 Dose: Infused Sodium Chloride (Sodium Chloride 0.9%) 1,000 mls @ 150 mls/hr IV .Q6H40M [facility] Last Admin: 12/06/16 07:06 Dose: 150 mls/hr Piperacillin Sod/Tazobactam (Sod 3.375 gm/ Dextrose) 50 mls @ 100 mls/hr IV Q6H [facility] Last Admin: 12/06/16 10:44 Dose: 100 mls/hr Potassium Phosphate 40 meq/ (Dextrose) 509.0909 mls @ 127.273 mls/hr IV ONCE ONE Stop: 12/06/16 11:59 Last Admin: 12/06/16 08:47 Dose: 127.273 mls/hr Naloxone HCl (Narcan) 0.1 mg IV Q2MIN PRN PRN Reason: Opiate Reversal Ondansetron HCl (Zofran) 4 mg IV Q4-6HP PRN PRN Reason: Nausea And Vomiting Pantoprazole Sodium (Protonix) 40 mg IV QAMAC [facility] Last Admin: 12/06/16 07:05 Dose: 40 mg Sodium Chloride (Saline Flush) 10 ml IV Q8 [facility] Last Admin: 12/06/16 08:52 Dose: 10 ml Medical - PN: A/P - Time Spent With Patient Total time spent is greater than 50% in coordination of care (as documented) at patient's floor/unit and/or counseling patient: 25 - 35 minutes (1) Perforated viscus Status: Acute Assessment and plan: * Bowel perforation status post xpiratory laparotomy managed by surgery. Postop day 2 * Sepsis secondary to peritonitis. on broad antibiotic coverage as per surgery. Escherichia coli on cultures. Pansensitive. * Postop ileus-On oral meds on hold. managed by surgery Issues managed by hospitalist service * New onset A. fib-status post digoxin load/metoprolol. * history of dementia-stable * bPH-Foleys catheter in place * history of GERD-oral meds on hold recommendations * As needed metoprolol IV for rate control/dig load * hold oral meds until his ileus resolved * SCDs for DVT prophylaxis and transition to heparin once approved by surgery Current Visit: Yes
--- NOTE | 2016-12-06 13:30 | General Surgery Progress Note ---
Subjective Patient reports: feels better, pain is less, no flatus, no bowel movement, afebrile Narrative: Note initiated : 12/06/16 at 1:27 pm Service Date, if different from initiated Date: [] Patient: Johnson Fowler 81 y/o M admitted on 12/04/16 for N/V/D for 4 Days/ Bowel Perforation. Chief Complaint: [] Objective Temp Pulse Resp BP Pulse Ox 97.7 F 142 H 20 88/57 98 12/06/16 12:00 12/06/16 11:02 12/06/16 12:00 12/06/16 12:00 12/06/16 11:02 - Additional Data Intake & Output - Last 24 hours: Intake & Output 12/04/16 12/05/16 12/06/16 12/07/16 05:59 05:59 05:59 05:59 Intake Total 1300 / 6850 2650 / 2650 1350 / 1350 Output Total 557 / 1087 3770 / 3770 340 / 340 Balance 743 / 5763 -1120 / -1120 1010 / 1010 Weight 208 lb 8 oz 211 lb 9.6 oz - General physical appearance no distress - Eyes PERRL - ENT no congestion - Neck no venous distension - Respiratory normal respiratory effort, clear to auscultation - Cardiovascular Cardiovascular exam: Present: irregular rhythm, tachycardia (irregularly irregular rhythm with rate between 60 and 110) - Abdomen soft, tender, bowel sounds (abdomen is distended with good active bowel sounds; his incisionlooks good; ARETHA drains have only serous tierney with no bile drainage noted), distended - Integumentary no rash, no growths, no abnormal pigmentation - Neurologic normal coordination, normal sensation - Musculoskeletal normal gait, normal posture - Psychiatric oriented to time, oriented to person, oriented to place, speech is normal, memory intact - Labs 12/06/16 03:40 12/06/16 03:40 Diabetes panel 12/06/16 Range/Units 03:40 Sodium 141 (133-145) mmol/L Potassium 3.8 (3.3-5.1) mmol/L Chloride 109 H (96-108) mmol/L Carbon Dioxide 21 L (22-30) mmol/L BUN 19 (8-23) mg/dl Creatinine 1.0 (0.7-1.2) mg/dl Glucose 104 (70-105) mg/dL Calcium 7.2 L (8.6-10.4) mg/dl AST 29 (0-37) U/l ALT 18 (0-40) U/l Alkaline Phosphatase 82 (39-117) U/L Total Protein 5.2 L (5.9-8.4) gm/dL Albumin 2.2 L (3.2-5.2) gm/dL Triglycerides 129 (<150) mg/dl Calcium panel 12/06/16 Range/Units 03:40 Calcium 7.2 L (8.6-10.4) mg/dl Phosphorus 1.5 L (2.7-4.5) mg/dL Albumin 2.2 L (3.2-5.2) gm/dL Pituitary panel 12/06/16 Range/Units 03:40 Sodium 141 (133-145) mmol/L Potassium 3.8 (3.3-5.1) mmol/L Chloride 109 H (96-108) mmol/L Carbon Dioxide 21 L (22-30) mmol/L BUN 19 (8-23) mg/dl Creatinine 1.0 (0.7-1.2) mg/dl Glucose 104 (70-105) mg/dL Calcium 7.2 L (8.6-10.4) mg/dl Adrenal panel 12/06/16 Range/Units 03:40 Sodium 141 (133-145) mmol/L Potassium 3.8 (3.3-5.1) mmol/L Chloride 109 H (96-108) mmol/L Carbon Dioxide 21 L (22-30) mmol/L BUN 19 (8-23) mg/dl Creatinine 1.0 (0.7-1.2) mg/dl Glucose 104 (70-105) mg/dL Calcium 7.2 L (8.6-10.4) mg/dl Total Bilirubin 0.4 (0.0-1.0) mg/dL AST 29 (0-37) U/l ALT 18 (0-40) U/l Alkaline Phosphatase 82 (39-117) U/L Total Protein 5.2 L (5.9-8.4) gm/dL Albumin 2.2 L (3.2-5.2) gm/dL Assessment and Plan (1) Perforated viscus Status: Acute Assessment and plan: patient will be continued on present therapy. IV will be Dcrease to 75 cc per hour Current Visit: Yes (2) GERD (gastroesophageal reflux disease) Status: Acute Current Visit: Yes (3) Prostate cancer Status: Acute Current Visit: Yes - Time Spent With Patient Total time spent is greater than 50% in coordination of care (as documented) at patient's floor/unit and/or counseling patient:
[2016-12-06] MEDS: fentaNYL 100 MCG/2 ML VIAL IV PRN ×2 (18:15→23:13)
[2016-12-07] MEDS: metroNIDAZOLE 500 MG/100 ML BAG IV SCH ×4 (00:49→17:27)
[2016-12-07] MEDS: 0.9 % SODIUM CHLORIDE 1,000 ML IV SCH ×3 (04:32→14:12)
[2016-12-07] MEDS: PIPERACILLIN SODIUM/TAZOBACTAM 3.375 GM in DEXTROSE 5% IN WATER 50 ML IV SCH ×4 (04:55→22:54)
[2016-12-07 05:28] LABS: Mean Cell Volume 93.3 fL (80.0-100.0); Mean Corpuscular Hemoglobin 30.8 pg (26.0-34.0); Platelet Count 240 K/mcL (140-440)
[2016-12-07] MEDS: 0.9 % SODIUM CHLORIDE 10 ML SYRINGE IV SCH ×4 (05:35→21:37)
[2016-12-07 05:54] LABS: ALT/SGPT 17 U/l (0-40); Albumin 2.4 gm/dL (3.2-5.2); Albumin/Globulin Ratio 0.9 (1.0-2.3); Alkaline Phosphatase 37 U/L (39-117); Bilirubin,Direct < 0.2 mg/dL (0.0-0.3); Blood Urea Nitrogen 19 mg/dl (8-23); Gamma Glutamyl Transpeptidase 6 U/L (8-61); Magnesium 2.5 mg/dL (1.6-2.5); Uric Acid 4.8 mg/dL (2.5-8.0)
[2016-12-07 07:39] LABS: Band Neutrophils % 7 % (0-10); Lymphocytes % 10 % (15-49); Monocytes % (Manual) 4 % (1-12); Platelet Estimate NORMAL (NORMAL); RBC Morphology NORMAL (NORMAL); Segmented Neutrophils % 79 % (38-78)
[2016-12-07] MEDS: PANTOPRAZOLE 40 MG VIAL IV SCH (08:30)
--- NOTE | 2016-12-07 08:55 | XRay Report ---
HISTORY: Reason for Exam:Verify reinsertion of NG tube FINDINGS: The nasogastric tube is positioned with the tip in the general location of the duodenal bulb. The stomach is decompressed. There is a Jules drain in the right upper quadrant. Most of the free intra-abdominal air is seen preoperatively has resolved. The bowel gas pattern is normal. There may be a small infiltrate laterally in the left lung base. IMPRESSION: Well-positioned nasogastric tube Interpreted and Authenticated by: Camilo Weller 12/07/16
[2016-12-07] MEDS ORDERED: 0.9 % SODIUM CHLORIDE 10 ML SYRINGE IV PRN ×2 (09:26→13:53)
--- NOTE | 2016-12-07 10:35 | Internal Med Progress Note ---
Medical - PN: Subj Patient information: Note initiated : 12/07/16 at 10:33 am Service Date, if different from initiated Date: [] Patient: Johnson Fowler 81 y/o M admitted on 12/04/16 for N/V/D for 4 Days/ Bowel Perforation. Chief Complaint: [] Interval history: 12/05-hospitalist consult postoperatively for management of medical issues. Patient underwent x-ray laparotomy for acute peritonitis/bowel perforation. Transfer to ICU postoperatively. Patient hemodynamic stable on close monitoring 12/06-complains of distended abdomen. hemodynamic stable. NG tube draining bloody/bilious output. New onset A. fib with RVR requiring digoxin/metoprolol last night. Rate now down to 100. white count 12.8 12/07- patient back in sinus rhythm after digoxin load. White count 11,000. Creatinine down from 1.5-1.1. patient likely improving. Persistent bilious NG output and abdominal distention. Postoperative management as per Dr. Jason. Hold all oral meds until oral feeding approved by surgery. Stable vital hemodynamics. as per staff on 2 L oxygen nasal cannula. Antibiotic coverage per surgery - Constitutional Vitals: Vital Signs Temp Pulse Resp BP Pulse Ox 98.6 F 68 18 102/64 95 12/07/16 08:00 12/07/16 09:00 12/07/16 09:00 12/07/16 09:00 12/07/16 09:00 Period Temp Pulse Resp BP Sys/Kennedy Pulse Ox Last 24 Hr 97.7 F-99.6 F 30-142 15-27 87-163/52-87 91-98 Intake and Output 12/06/16 12/07/16 12/07/16 21:59 05:59 13:59 Intake Total 1884.0909 / 1884.0909 100 / 100 Output Total 855 / 855 765 / 765 260 / 260 Balance -855 / -855 1119.0909 / 1119.0909 -160 / -160 Weight 212 lb 14.4 oz Intake & Output: Intake & Output 12/06/16 12/07/16 12/07/16 21:59 05:59 13:59 Intake Total 1884.0909 / 1884.0909 100 / 100 Output Total 855 / 855 765 / 765 260 / 260 Balance -855 / -855 1119.0909 / 1119.0909 -160 / -160 Weight 212 lb 14.4 oz Intake: IV 1859.0909 / 1859.0909 100 / 100 Sodium Chloride 0.9% 1, 1000 / 1000 000 ml @ 150 mls/hr IV . Q6H40M [facility] Rx#:[id number] Zosyn 3.375 gm In 150 / 150 Dextrose 5% in Water 50 ml @ 100 mls/hr IV Q6H [facility] Rx#:[id number] Potassium Phosphate 40 509.0909 / 509.0909 Meq In Dextrose 5% in Water 500 ml @ 127.273 mls/hr IV ONCE ONE Rx#: [id number] Oral Output: Gastric Drainage 300 / 300 250 / 250 Right Nare NG/OG 250 / 250 Drainage 130 / 130 90 / 90 90 / 90 ARETHA Drain 'A' 30 / 30 30 / 30 ARETHA Drain 'B" 30 30 / 30 30 / 30 ARETHA Drain 'C' 45 / 45 10 / 10 10 / 10 ARETHA Drain 'D' 20 / 20 20 / 20 Urine Catheter Amount 425 / 425 425 / 425 170 / 170 General appearance: cooperative, no acute distress Exam: alert oriented nonlabored breathing Distended abdomen And sluggish bowel sounds NG tube draining bilious output normal sinus rhythm on telemetry with PVCs Medical - PN: Obj Da - Labs CBC & Chem 7: 12/07/16 04:05 12/07/16 04:05 Labs: Abnormal Lab Results 12/07/16 12/07/16 12/06/16 04:05 04:05 03:40 WBC 11.6 H RBC 3.60 L Hgb 11.1 L Hct 33.6 L Seg Neutrophils % 79 H Band Neutrophils % Lymphocytes % 10 L Metamyelocytes % Chloride 109 H Carbon Dioxide 21 L BUN Glucose Calcium 7.2 L 7.2 L Phosphorus 2.0 L 1.5 L Magnesium 2.6 H GGT 6 L Alkaline Phosphatase 37 L Lactate Dehydrogenase 310 H Total Protein 5.1 L 5.2 L Albumin 2.4 L 2.2 L Albumin/Globulin Ratio 0.9 L 0.7 L 12/06/16 12/05/16 12/05/16 03:40 03:30 03:30 WBC 12.8 H 13.2 H RBC 3.81 L 4.27 L Hgb 11.7 L 13.1 L Hct 35.5 L 40.1 L Seg Neutrophils % 23 L Band Neutrophils % 19 H 60 H Lymphocytes % 6 L 12 L Metamyelocytes % 3 H Chloride Carbon Dioxide BUN 25 H Glucose 158 H Calcium 7.0 L Phosphorus Magnesium 2.7 H GGT 7 L Alkaline Phosphatase 34 L Lactate Dehydrogenase Total Protein 5.0 L Albumin 2.5 L Albumin/Globulin Ratio 12/04/16 22:50 WBC RBC Hgb Hct Seg Neutrophils % Band Neutrophils % Lymphocytes % Metamyelocytes % Chloride Carbon Dioxide 19 L BUN Glucose 168 H Calcium 6.8 L Phosphorus Magnesium 1.5 L GGT 5 L Alkaline Phosphatase 35 L Lactate Dehydrogenase 272 H Total Protein 5.1 L Albumin 2.4 L Albumin/Globulin Ratio 0.9 L Meds: Medications Fentanyl (Sublimaze) 25 mcg IV Q2HP PRN PRN Reason: Pain Last Admin: 12/06/16 23:13 Dose: 25 mcg Heparin Sodium (Porcine) (Heparin Flush) 2 ml IV Q12 [facility] Metronidazole (Flagyl) 500 mg in 100 mls @ 100 mls/hr IV Q6H [facility] Last Infusion: 12/07/16 06:40 Dose: Infused Acetaminophen (Ofirmev) 1,000 mg in 100 mls @ 200 mls/hr IV Q6HP PRN PRN Reason: Pain Last Infusion: 12/06/16 08:13 Dose: Infused Piperacillin Sod/Tazobactam (Sod 3.375 gm/ Dextrose) 50 mls @ 100 mls/hr IV Q6H [facility] Last Infusion: 12/07/16 05:35 Dose: Infused Sodium Chloride (Sodium Chloride 0.9%) 1,000 mls @ 75 mls/hr IV .[id number] [facility] Last Admin: 12/07/16 04:32 Dose: Not Given Naloxone HCl (Narcan) 0.1 mg IV Q2MIN PRN PRN Reason: Opiate Reversal Ondansetron HCl (Zofran) 4 mg IV Q4-6HP PRN PRN Reason: Nausea And Vomiting Pantoprazole Sodium (Protonix) 40 mg IV QAMAC [facility] Last Admin: 12/07/16 08:30 Dose: 40 mg Sodium Chloride (Saline Flush) 10 ml IV Q8 [facility] Last Admin: 12/07/16 05:35 Dose: 10 ml Sodium Chloride (Saline Flush) 10 ml IV UD PRN PRN Reason: FLUSH Medical - PN: A/P - Time Spent With Patient Total time spent is greater than 50% in coordination of care (as documented) at patient's floor/unit and/or counseling patient: 15 - 24 minutes (1) Perforated viscus Status: Acute Assessment and plan: * Bowel perforation s/p exploratory laparotomy managed by surgery. Postop day 3 * Sepsis secondary to peritonitis. on broad antibiotic coverage as per surgery. Escherichia coli on cultures. Pansensitive. Anticipate 7-10 days antibiotic coverage * Postop ileus-managed by surgery Issues managed by hospitalist service * New onset A. fib- converted to sinus post digoxin * history of dementia-stable. oral meds on hold * BPH-Foleys catheter in place * history of GERD-oral meds on hold recommendations * hold oral meds until oral intake approved by surgery * consider discontinuing Jimenez's catheter if patient able to get out of bed * SCDs for DVT prophylaxis Current Visit: Yes
--- NOTE | 2016-12-07 12:33 | XRay Report ---
HISTORY: Reason for Exam:PICC PLACEMENT FINDINGS: A PICC line has been placed through the right arm with the tip in the superior vena cava. There is no pneumothorax or right-sided pleural effusion. The right diaphragm is mildly elevated. Mild generalized increased interstitial lung markings are present throughout the left lung and medially in the right lower lobe. This may be a combination of interstitial fibrosis and an active inflammatory process. This has become worse in the left lung since prior exam done on 12/04/16. The heart size is within normal limits. Nasogastric tube passes through the esophagus. The tip is not clearly visualized. IMPRESSION: No complication following PICC line insertion Mild infiltrate left lung which is becoming worse Interpreted and Authenticated by: Camilo Weller 12/07/16
[2016-12-07] MEDS ORDERED: POTASSIUM PHOSPHATE 40 MEQ in DEXTROSE 5% IN WATER 500 ML IV ONE (13:05)
--- NOTE | 2016-12-07 13:26 | General Surgery Progress Note ---
Subjective Patient reports: feels better, pain is less, no flatus, no bowel movement, afebrile Narrative: Note initiated : 12/07/16 at 1:24 pm Service Date, if different from initiated Date: [] Patient: Johnson Fowler 81 y/o M admitted on 12/04/16 for N/V/D for 4 Days/ Bowel Perforation. Chief Complaint: [patient is doing very well. the does not have any chest pain or shortness of breath. His heart rhythm issinus with occasional ectopic and bradycardia. He has not had tachycardia for over 24 hours. He denies any significant abdominal pain. He does not have any increased abdominal distention. The ARETHA drainage remains serous in all drains. Mentally he is alert and aware but is agitated because he cannot eat He has not had flatus or bowel movement.] Objective Temp Pulse Resp BP Pulse Ox 98.1 F 62 19 108/62 95 12/07/16 12:34 12/07/16 12:00 12/07/16 12:00 12/07/16 12:00 12/07/16 12:00 - Additional Data Intake & Output - Last 24 hours: Intake & Output 12/05/16 12/06/16 12/07/16 12/08/16 05:59 05:59 05:59 05:59 Intake Total 1300 / 6850 2650 / 2650 3474.0909 / 3474.0909 1150 / 1150 Output Total 557 / 1087 3770 / 3770 2060 / 2060 420 / 420 Balance 743 / 5763 -1120 / -1120 1414.0909 / 1414.0909 730 / 730 Weight 208 lb 8 oz 211 lb 9.6 oz 212 lb 14.4 oz - General physical appearance no distress, moderate pain - Eyes PERRL - ENT no congestion - Neck no venous distension - Respiratory normal expansion, clear to auscultation - Cardiovascular Cardiovascular exam: Present: normal rate and rhythm, irregular rhythm, JVD - Abdomen soft, tender, bowel sounds, distended (good active bowel sounds; incision looks good; ARETHA drains with serous drainage.) - Integumentary no rash, no growths, no abnormal pigmentation - Neurologic normal coordination, normal sensation - Psychiatric oriented to time, oriented to person, oriented to place, speech is normal, memory intact - Labs 12/07/16 04:05 04/27/17 04:05 Diabetes panel 12/07/16 Range/Units 04:05 Sodium 142 (133-145) mmol/L Potassium 3.5 (3.3-5.1) mmol/L Chloride 108 (96-108) mmol/L Carbon Dioxide 23 (22-30) mmol/L BUN 19 (8-23) mg/dl Creatinine 1.1 (0.7-1.2) mg/dl Glucose 91 (70-105) mg/dL Calcium 7.2 L (8.6-10.4) mg/dl AST 20 (0-37) U/l ALT 17 (0-40) U/l Alkaline Phosphatase 37 L (39-117) U/L Total Protein 5.1 L (5.9-8.4) gm/dL Albumin 2.4 L (3.2-5.2) gm/dL Triglycerides 112 (<150) mg/dl Calcium panel 12/07/16 Range/Units 04:05 Calcium 7.2 L (8.6-10.4) mg/dl Phosphorus 2.0 L (2.7-4.5) mg/dL Albumin 2.4 L (3.2-5.2) gm/dL Pituitary panel 12/07/16 Range/Units 04:05 Sodium 142 (133-145) mmol/L Potassium 3.5 (3.3-5.1) mmol/L Chloride 108 (96-108) mmol/L Carbon Dioxide 23 (22-30) mmol/L BUN 19 (8-23) mg/dl Creatinine 1.1 (0.7-1.2) mg/dl Glucose 91 (70-105) mg/dL Calcium 7.2 L (8.6-10.4) mg/dl Adrenal panel 12/07/16 Range/Units 04:05 Sodium 142 (133-145) mmol/L Potassium 3.5 (3.3-5.1) mmol/L Chloride 108 (96-108) mmol/L Carbon Dioxide 23 (22-30) mmol/L BUN 19 (8-23) mg/dl Creatinine 1.1 (0.7-1.2) mg/dl Glucose 91 (70-105) mg/dL Calcium 7.2 L (8.6-10.4) mg/dl Total Bilirubin 0.5 (0.0-1.0) mg/dL AST 20 (0-37) U/l ALT 17 (0-40) U/l Alkaline Phosphatase 37 L (39-117) U/L Total Protein 5.1 L (5.9-8.4) gm/dL Albumin 2.4 L (3.2-5.2) gm/dL Assessment and Plan (1) Perforated viscus Status: Acute Assessment and plan: patient will be continued on present therapy. IV will be Decrease to 75 cc per hour changed to telemetry status Current Visit: Yes (2) GERD (gastroesophageal reflux disease) Status: Acute Current Visit: Yes (3) Prostate cancer Status: Acute Current Visit: Yes - Time Spent With Patient Total time spent is greater than 50% in coordination of care (as documented) at patient's floor/unit and/or counseling patient:
[2016-12-07] MEDS ORDERED: ONDANSETRON 4 MG/2 ML VIAL IV PRN (13:53)
[2016-12-07] MEDS ORDERED: NALOXONE HCL 0.4 MG/ML VIAL IV PRN (13:53)
[2016-12-07] MEDS ORDERED: ACETAMINOPHEN 1,000 MG/100 ML BOTTLE IV PRN (13:53)
[2016-12-07] MEDS ORDERED: fentaNYL 100 MCG/2 ML VIAL IV PRN (13:53)
[2016-12-07] MEDS: METOCLOPRAMIDE 10 MG/2 ML VIAL IV SCH (17:28)
[2016-12-08] MEDS: metroNIDAZOLE 500 MG/100 ML BAG IV SCH ×4 (00:02→17:49)
[2016-12-08] MEDS: METOCLOPRAMIDE 10 MG/2 ML VIAL IV SCH ×4 (00:04→17:48)
[2016-12-08] MEDS: 0.9 % SODIUM CHLORIDE 1,000 ML IV SCH ×3 (03:53→21:56)
[2016-12-08] MEDS: PIPERACILLIN SODIUM/TAZOBACTAM 3.375 GM in DEXTROSE 5% IN WATER 50 ML IV SCH ×4 (04:41→23:03)
[2016-12-08 05:21] LABS: Mean Corpuscular HGB Conc 32.7 g/dL (31.0-36.0); Mean Corpuscular Hemoglobin 30.4 pg (26.0-34.0); Platelet Count 288 K/mcL (140-440); RBC 3.78 M/mcL (4.50-5.90); Red Cell Distribution Width 14.5 % (11.5-14.5)
[2016-12-08 05:34] LABS: ALT/SGPT 16 U/l (0-40); Albumin 2.5 gm/dL (3.2-5.2); Albumin/Globulin Ratio 0.8 (1.0-2.3); Alkaline Phosphatase 54 U/L (39-117); Bilirubin,Direct < 0.2 mg/dL (0.0-0.3); Blood Urea Nitrogen 17 mg/dl (8-23); Gamma Glutamyl Transpeptidase 9 U/L (8-61); Magnesium 2.3 mg/dL (1.6-2.5)
[2016-12-08] MEDS: 0.9 % SODIUM CHLORIDE 10 ML SYRINGE IV SCH ×3 (05:38→21:59)
[2016-12-08 06:36] LABS: Band Neutrophils % 3 % (0-10); Eosinophils % (Manual) 2 % (0-7); Lymphocytes % 18 % (15-49); Monocytes % (Manual) 5 % (1-12); Platelet Estimate NORMAL (NORMAL); RBC Morphology NORMAL (NORMAL); Segmented Neutrophils % 72 % (38-78); Toxic Granulation 1+ (NONE SEEN)
[2016-12-08] MEDS ORDERED: PANTOPRAZOLE 40 MG VIAL IV SCH (07:30)
[2016-12-08] MEDS ORDERED: POTASSIUM CHLORIDE 40 MEQ in DEXTROSE 5% IN WATER 250 ML IV ONE (07:31)
--- NOTE | 2016-12-08 10:11 | Internal Med Progress Note ---
Medical - PN: Subj Patient information: Note initiated : 12/08/16 at 10:09 am Service Date, if different from initiated Date: [] Patient: Johnson Fowler 81 y/o M admitted on 12/04/16 for N/V/D for 4 Days/ Bowel Perforation. Chief Complaint: [] Interval history: 12/05-hospitalist consult postoperatively for management of medical issues. Patient underwent x-ray laparotomy for acute peritonitis/bowel perforation. Transfer to ICU postoperatively. Patient hemodynamic stable on close monitoring 12/06-complains of distended abdomen. hemodynamic stable. NG tube draining bloody/bilious output. New onset A. fib with RVR requiring digoxin/metoprolol last night. Rate now down to 100. white count 12.8 12/07- patient back in sinus rhythm after digoxin load. White count 11,000. Creatinine down from 1.5-1.1. patient likely improving. Persistent bilious NG output and abdominal distention. Postoperative management as per Dr. Jason. Hold all oral meds until oral feeding approved by surgery. Stable vital hemodynamics. as per staff on 2 L oxygen nasal cannula. Antibiotic coverage per surgery 12/08- Pt seen examined this AM, no acute overnight events, pt slept well, no recurrent Afib episodes, Pt still has NG tube, notes he did pass gas, but no BM, has some sorenss in the abdominal wall. K was borderline, will replace. remains NPO. vitals stable. Pertinent ROS: Denies headache, dizziness Denies chest pain, palpitations Denies cough or shortness of breath Denies abdominal pain, nausea or vomiting. but abdominal soreness present. - Constitutional Vitals: Vital Signs Temp Pulse Resp BP Pulse Ox 98.8 F 75 16 136/60 96 12/08/16 07:53 12/08/16 07:53 12/08/16 07:53 12/08/16 07:53 12/08/16 07:53 Period Temp Pulse Resp BP Sys/Kennedy Pulse Ox Last 24 Hr 98.1 F-99.4 F 60-75 16-22 108-138/60-94 94-97 Intake and Output 12/07/16 12/08/16 12/08/16 21:59 05:59 13:59 Intake Total 1079.0909 / 1079.0909 1600 / 1600 100 / 100 Output Total 1050 / 1050 970 / 970 Balance 29.0909 / 29.0909 630 / 630 100 / 100 Weight 210 lb 6.4 oz Intake & Output: Intake & Output 12/07/16 12/08/16 12/08/16 21:59 05:59 13:59 Intake Total 1079.0909 / 1079.0909 1600 / 1600 100 / 100 Output Total 1050 / 1050 970 / 970 Balance 29.0909 / 29.0909 630 / 630 100 / 100 Weight 210 lb 6.4 oz Intake: IV 759.0909 / 759.0909 1200 / 1200 100 / 100 Zosyn 3.375 gm In 50 / 50 100 / 100 Dextrose 5% in Water 50 ml @ 100 mls/hr IV Q6H [facility] Rx#:[id number] Potassium Phosphate 40 509.0909 / 509.0909 Meq In Dextrose 5% in Water 500 ml @ 127.273 mls/hr IV ONCE ONE Rx#: [id number] Oral 320 / 320 400 / 400 Output: Gastric Drainage 750 / 750 275 / 275 Right Nare NG/OG 750 / 750 275 / 275 Drainage 60 / 60 45 / 45 ARETHA Drain 'A' ARETHA Drain 'B" ARETHA Drain 'C' ARETHA Drain 'D' Urine Catheter Amount 240 / 240 650 / 650 Other: Meal popsicle/ice Percent of Meal Consumed 100% Feeding Ability Independent Exam: Constitutional; Afebrile, cooperative, alert, not in distress. Eyes- No icterus, , No periorbital swelling Ears- Ext ear normal, hearing normal to conversation. Neck- Midline trachea, supple Respiratory system: Air Entry equal on both sides, No crackles or wheezing, no rhonchi. CVS- Rate rhythm regular, S1,S2 heard, no gallop, no rub. Abdomen- in binder, drains in places, hypoactive bowel sounds. 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 Medical - PN: Obj Da - Labs CBC & Chem 7: 12/08/16 04:00 12/08/16 03:59 Labs: Abnormal Lab Results 12/08/16 12/08/16 12/07/16 04:00 03:59 04:05 WBC 11.7 H RBC 3.78 L Hgb 11.5 L Hct 35.2 L Seg Neutrophils % Band Neutrophils % Lymphocytes % WBC Morphology Abnorm A Toxic Granulation 1+ A Chloride Carbon Dioxide Calcium 7.4 L 7.2 L Phosphorus 2.4 L 2.0 L Magnesium GGT 6 L Alkaline Phosphatase 37 L Lactate Dehydrogenase 319 H Total Protein 5.5 L 5.1 L Albumin 2.5 L 2.4 L Albumin/Globulin Ratio 0.8 L 0.9 L 12/07/16 12/06/16 12/06/16 04:05 03:40 03:40 WBC 11.6 H 12.8 H RBC 3.60 L 3.81 L Hgb 11.1 L 11.7 L Hct 33.6 L 35.5 L Seg Neutrophils % 79 H Band Neutrophils % 19 H Lymphocytes % 10 L 6 L WBC Morphology Toxic Granulation Chloride 109 H Carbon Dioxide 21 L Calcium 7.2 L Phosphorus 1.5 L Magnesium 2.6 H GGT Alkaline Phosphatase Lactate Dehydrogenase 310 H Total Protein 5.2 L Albumin 2.2 L Albumin/Globulin Ratio 0.7 L Meds: Medications Fentanyl (Sublimaze) 25 mcg IV Q2HP PRN PRN Reason: Pain Last Admin: 12/07/16 22:10 Dose: 25 mcg Heparin Sodium (Porcine) (Heparin Flush) 2 ml IV Q12 [facility] Last Admin: 12/08/16 08:30 Dose: Not Given Sodium Chloride (Sodium Chloride 0.9%) 1,000 mls @ 75 mls/hr IV .[id number] [facility] Last Admin: 12/08/16 03:53 Dose: 75 mls/hr Acetaminophen (Ofirmev) 1,000 mg in 100 mls @ 200 mls/hr IV Q6HP PRN PRN Reason: Pain Piperacillin Sod/Tazobactam (Sod 3.375 gm/ Dextrose) 50 mls @ 100 mls/hr IV Q6H [facility] Last Infusion: 12/08/16 05:38 Dose: Infused Metronidazole (Flagyl) 500 mg in 100 mls @ 100 mls/hr IV Q6H [facility] Last Infusion: 12/08/16 06:54 Dose: Infused Potassium Chloride 40 meq/ (Dextrose) 270 mls @ 67.5 mls/hr IV ONCE ONE Stop: 12/08/16 11:30 Last Admin: 12/08/16 08:29 Dose: 67.5 mls/hr Metoclopramide HCl (Reglan) 10 mg IV Q6 [facility] Last Admin: 12/08/16 05:37 Dose: 10 mg Naloxone HCl (Narcan) 0.1 mg IV Q2MIN PRN PRN Reason: Opiate Reversal Ondansetron HCl (Zofran) 4 mg IV Q4-6HP PRN PRN Reason: Nausea And Vomiting Pantoprazole Sodium (Protonix) 40 mg IV QAMAC [facility] Last Admin: 12/08/16 08:28 Dose: 40 mg Sodium Chloride (Saline Flush) 10 ml IV UD PRN PRN Reason: FLUSH Sodium Chloride (Saline Flush) 10 ml IV Q8 [facility] Last Admin: 12/08/16 05:38 Dose: 10 ml Medical - PN: A/P - Time Spent With Patient Total time spent is greater than 50% in coordination of care (as documented) at patient's floor/unit and/or counseling patient: - Narrative A/P Narrative: Bowel perforation. - etiology? no perf noted on operation. Peritonitis- due to bowel perf? ecoli in culture, messer sensitive Sepsis- due to above- on broad spectrum ABX, sepsis resolved. new onset afib- due to sepsis, resolved now, s/p digoxin. Dementia- resume home meds when able. HLD- resume home meds when able BPH- kramer in place, resume flomax when able Ileus- due to post op, passed flatus, no bm, followed by surgery, replace lytes. DVT scd DIET NPO
--- NOTE | 2016-12-08 15:43 | General Surgery Progress Note ---
Subjective Patient reports: feels better, pain is less, tolerating liquids well, flatus, bowel movement, afebrile Narrative: Note initiated : 12/08/16 at 3:42 pm Service Date, if different from initiated Date: [] Patient: Johnson Fowler 81 y/o M admitted on 12/04/16 for N/V/D for 4 Days/ Bowel Perforation. Chief Complaint: [patient has done well and has finally stabilized He has a stable heart rhythm. He denies any chest pain or shortness of breath. He denies any significant abdominal pain. He denies nausea. He tolerated his liquid diet without difficulty. The ARETHA drainage is serous and decreasing in volume. His incision looks good.] Objective Temp Pulse Resp BP Pulse Ox 98.6 F 75 20 139/76 96 12/08/16 11:30 12/08/16 07:53 12/08/16 11:30 12/08/16 11:30 12/08/16 11:30 - Additional Data Intake & Output - Last 24 hours: Intake & Output 12/06/16 12/07/16 12/08/16 12/09/16 05:59 05:59 05:59 05:59 Intake Total 2650 / 2650 3474.0909 / 3474.0909 3829.0909 / 3829.0909 150 / 150 Output Total 3770 / 3770 2060 / 2060 2440 / 2440 700 / 700 Balance -1120 / -1120 1414.0909 / 1414.0909 1389.0909 / 1389.0909 -550 / -550 Weight 211 lb 9.6 oz 212 lb 14.4 oz 210 lb 6.4 oz 210 lb 6.4 oz - General physical appearance no distress - Eyes PERRL - ENT no congestion - Neck no venous distension - Respiratory normal respiratory effort, clear to auscultation - Cardiovascular Cardiovascular exam: Present: irregular rhythm, +S1, +S2. Absent: JVD - Abdomen soft, tender, bowel sounds, distended (mild distention with active bowel sounds. Incision looks good. ARETHA drainage is serous) - Integumentary no rash, no growths, no abnormal pigmentation - Neurologic normal coordination, normal sensation - Psychiatric oriented to time, oriented to person, oriented to place, speech is normal, memory intact - Labs 12/09/16 04:15 12/09/16 04:15 Diabetes panel 12/08/16 Range/Units 03:59 Sodium 143 (133-145) mmol/L Potassium 3.5 (3.3-5.1) mmol/L Chloride 108 (96-108) mmol/L Carbon Dioxide 24 (22-30) mmol/L BUN 17 (8-23) mg/dl Creatinine 1.1 (0.7-1.2) mg/dl Glucose 100 (70-105) mg/dL Calcium 7.4 L (8.6-10.4) mg/dl AST 20 (0-37) U/l ALT 16 (0-40) U/l Alkaline Phosphatase 54 (39-117) U/L Total Protein 5.5 L (5.9-8.4) gm/dL Albumin 2.5 L (3.2-5.2) gm/dL Triglycerides 117 (<150) mg/dl Calcium panel 12/08/16 Range/Units 03:59 Calcium 7.4 L (8.6-10.4) mg/dl Phosphorus 2.4 L (2.7-4.5) mg/dL Albumin 2.5 L (3.2-5.2) gm/dL Pituitary panel 12/08/16 Range/Units 03:59 Sodium 143 (133-145) mmol/L Potassium 3.5 (3.3-5.1) mmol/L Chloride 108 (96-108) mmol/L Carbon Dioxide 24 (22-30) mmol/L BUN 17 (8-23) mg/dl Creatinine 1.1 (0.7-1.2) mg/dl Glucose 100 (70-105) mg/dL Calcium 7.4 L (8.6-10.4) mg/dl Adrenal panel 12/08/16 Range/Units 03:59 Sodium 143 (133-145) mmol/L Potassium 3.5 (3.3-5.1) mmol/L Chloride 108 (96-108) mmol/L Carbon Dioxide 24 (22-30) mmol/L BUN 17 (8-23) mg/dl Creatinine 1.1 (0.7-1.2) mg/dl Glucose 100 (70-105) mg/dL Calcium 7.4 L (8.6-10.4) mg/dl Total Bilirubin 0.5 (0.0-1.0) mg/dL AST 20 (0-37) U/l ALT 16 (0-40) U/l Alkaline Phosphatase 54 (39-117) U/L Total Protein 5.5 L (5.9-8.4) gm/dL Albumin 2.5 L (3.2-5.2) gm/dL Assessment and Plan (1) Perforated viscus Status: Acute Assessment and plan: patient will be continued on present therapy. IV will be Decrease to 75 cc per hour TRANSFER TO MED/SURG. D/C NG TUBE AND FRANKLIN CATHETER FULL LIQUID DIET Current Visit: Yes (2) GERD (gastroesophageal reflux disease) Status: Acute Current Visit: Yes (3) Prostate cancer Status: Acute Current Visit: Yes - Time Spent With Patient Total time spent is greater than 50% in coordination of care (as documented) at patient's floor/unit and/or counseling patient:
[2016-12-08] MEDS ORDERED: fentaNYL 100 MCG/2 ML VIAL IV PRN (15:51)
[2016-12-08] MEDS ORDERED: NALOXONE HCL 0.4 MG/ML VIAL IV PRN (15:51)
[2016-12-08] MEDS ORDERED: ACETAMINOPHEN 1,000 MG/100 ML BOTTLE IV PRN (15:51)
[2016-12-08] MEDS ORDERED: ONDANSETRON 4 MG/2 ML VIAL IV PRN (15:51)
[2016-12-08] MEDS ORDERED: 0.9 % SODIUM CHLORIDE 10 ML SYRINGE IV PRN (15:51)
[2016-12-09] MEDS: METOCLOPRAMIDE 10 MG/2 ML VIAL IV SCH ×5 (00:07→23:55)
[2016-12-09] MEDS: metroNIDAZOLE 500 MG/100 ML BAG IV SCH ×5 (00:07→23:55)
[2016-12-09] MEDS: 0.9 % SODIUM CHLORIDE 10 ML SYRINGE IV SCH ×3 (05:06→20:11)
[2016-12-09] MEDS: PIPERACILLIN SODIUM/TAZOBACTAM 3.375 GM in DEXTROSE 5% IN WATER 50 ML IV SCH ×4 (05:06→23:08)
[2016-12-09 05:08] LABS: Mean Cell Volume 91.9 fL (80.0-100.0); Mean Corpuscular HGB Conc 33.4 g/dL (31.0-36.0); Mean Corpuscular Hemoglobin 30.7 pg (26.0-34.0); Platelet Count 307 K/mcL (140-440); RBC 3.67 M/mcL (4.50-5.90); Red Cell Distribution Width 14.1 % (11.5-14.5)
[2016-12-09 05:25] LABS: ALT/SGPT 16 U/l (0-40); Albumin 2.6 gm/dL (3.2-5.2); Alkaline Phosphatase 37 U/L (39-117); Bilirubin,Direct < 0.2 mg/dL (0.0-0.3); Blood Urea Nitrogen 12 mg/dl (8-23); Gamma Glutamyl Transpeptidase 9 U/L (8-61); Magnesium 1.9 mg/dL (1.6-2.5); Uric Acid 3.9 mg/dL (2.5-8.0)
[2016-12-09 06:46] LABS: Eosinophils % (Manual) 1 % (0-7); Lymphocytes % 15 % (15-49); Monocytes % (Manual) 2 % (1-12); Platelet Estimate NORMAL (NORMAL); RBC Morphology NORMAL (NORMAL); Segmented Neutrophils % 82 % (38-78)
[2016-12-09] MEDS: 0.9 % SODIUM CHLORIDE 1,000 ML IV SCH ×2 (07:26→21:42)
[2016-12-09] MEDS: PANTOPRAZOLE 40 MG VIAL IV SCH (07:31)
--- NOTE | 2016-12-09 12:35 | Internal Med Progress Note ---
Medical - PN: Subj Patient information: Note initiated : 12/09/16 at 12:33 pm Service Date, if different from initiated Date: [] Patient: Johnson Fowler 81 y/o M admitted on 12/04/16 for N/V/D for 4 Days/ Bowel Perforation. Chief Complaint: [] Interval history: 12/05-hospitalist consult postoperatively for management of medical issues. Patient underwent x-ray laparotomy for acute peritonitis/bowel perforation. Transfer to ICU postoperatively. Patient hemodynamic stable on close monitoring 12/06-complains of distended abdomen. hemodynamic stable. NG tube draining bloody/bilious output. New onset A. fib with RVR requiring digoxin/metoprolol last night. Rate now down to 100. white count 12.8 12/07- patient back in sinus rhythm after digoxin load. White count 11,000. Creatinine down from 1.5-1.1. patient likely improving. Persistent bilious NG output and abdominal distention. Postoperative management as per Dr. Jason. Hold all oral meds until oral feeding approved by surgery. Stable vital hemodynamics. as per staff on 2 L oxygen nasal cannula. Antibiotic coverage per surgery 12/08- Pt seen examined this AM, no acute overnight events, pt slept well, no recurrent Afib episodes, Pt still has NG tube, notes he did pass gas, but no BM, has some sorenss in the abdominal wall. K was borderline, will replace. remains NPO. vitals stable. 12/09 Pt seen examined, no acute overnight issues, now on med surg floor, liquid diet resumed, passed stools and flauts no palpitations reported. Pertinent ROS: Denies headache, dizziness Denies chest pain, palpitations Denies cough or shortness of breath Denies abdominal pain, nausea or vomiting. - Constitutional Vitals: Vital Signs Temp Pulse Resp BP Pulse Ox 98.1 F 71 20 137/74 94 12/09/16 11:44 12/09/16 11:44 12/09/16 11:44 12/09/16 11:44 12/09/16 11:44 Period Temp Pulse Resp BP Sys/Kennedy Pulse Ox Last 24 Hr 98.0 F-98.3 F 69-77 18-20 126-137/56-83 93-96 Intake and Output 12/08/16 12/09/16 12/09/16 21:59 05:59 13:59 Intake Total 581 / 581 725 / 725 950 / 950 Output Total 985 / 985 745 / 745 310 / 310 Balance -404 / -404 -20 / -20 640 / 640 Weight 210 lb Intake & Output: Intake & Output 12/08/16 12/09/16 12/09/16 21:59 05:59 13:59 Intake Total 581 / 581 725 / 725 950 / 950 Output Total 985 / 985 745 / 745 310 / 310 Balance -404 / -404 -20 / -20 640 / 640 Weight 210 lb Intake: IV 581 / 581 200 / 200 150 / 150 Sodium Chloride 0.9% 1, 431 / 431 000 ml @ 75 mls/hr IV . [id number] [facility] Rx#:[id number] Zosyn 3.375 gm In 50 / 50 100 / 100 50 / 50 Dextrose 5% in Water 50 ml @ 100 mls/hr IV Q6H [facility] Rx#:[id number] Oral 525 / 525 800 / 800 Output: Drainage 60 / 60 95 / 95 60 / 60 ARETHA Drain 'A' 35 / 35 ARETHA Drain 'B" 10 ARETHA Drain 'C' ARETHA Drain 'D' Urine Catheter Amount 700 / 700 Void Amount 225 / 225 650 / 650 250 / 250 Other: Meal Breakfast Percent of Meal Consumed 100% Feeding Ability Independent # Voids 1 1 # Bowel Movements 1 Exam: Constitutional; Afebrile, cooperative, alert, not in distress. Eyes- No icterus, , No periorbital swelling Ears- Ext ear normal, hearing normal to conversation. Neck- Midline trachea, supple Respiratory system: Air Entry equal on both sides, No crackles or wheezing, no rhonchi. CVS- Rate rhythm regular, S1,S2 heard, no gallop, no rub. 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 Medical - PN: Obj Da - Labs CBC & Chem 7: 12/09/16 04:15 12/09/16 04:15 Labs: Abnormal Lab Results 12/09/16 12/09/16 12/08/16 04:15 04:15 04:00 WBC 11.7 H RBC 3.67 L 3.78 L Hgb 11.3 L 11.5 L Hct 33.7 L 35.2 L Seg Neutrophils % 82 H Lymphocytes % WBC Morphology Abnorm A Toxic Granulation 1+ A Chloride 109 H Glucose 113 H Calcium 7.3 L Phosphorus 2.1 L GGT Alkaline Phosphatase 37 L Lactate Dehydrogenase 293 H Total Protein 5.2 L Albumin 2.6 L Albumin/Globulin Ratio 12/08/16 12/07/16 12/07/16 03:59 04:05 04:05 WBC 11.6 H RBC 3.60 L Hgb 11.1 L Hct 33.6 L Seg Neutrophils % 79 H Lymphocytes % 10 L WBC Morphology Toxic Granulation Chloride Glucose Calcium 7.4 L 7.2 L Phosphorus 2.4 L 2.0 L GGT 6 L Alkaline Phosphatase 37 L Lactate Dehydrogenase 319 H Total Protein 5.5 L 5.1 L Albumin 2.5 L 2.4 L Albumin/Globulin Ratio 0.8 L 0.9 L Meds: Medications Aspirin (Aspirin Ec) 81 mg PO DAILY [facility] Donepezil HCl (Aricept) 5 mg PO HS [facility] Fentanyl (Sublimaze) 25 mcg IV Q2HP PRN PRN Reason: Pain Finasteride (Proscar) 5 mg PO DAILY [facility] Heparin Sodium (Porcine) (Heparin Flush) 2 ml IV Q12 [facility] Last Admin: 12/09/16 09:33 Dose: 2 ml Sodium Chloride (Sodium Chloride 0.9%) 1,000 mls @ 75 mls/hr IV .[id number] [facility] Last Admin: 12/09/16 07:26 Dose: Not Given Acetaminophen (Ofirmev) 1,000 mg in 100 mls @ 200 mls/hr IV Q6HP PRN PRN Reason: Pain Piperacillin Sod/Tazobactam (Sod 3.375 gm/ Dextrose) 50 mls @ 100 mls/hr IV Q6H [facility] Last Infusion: 12/09/16 11:43 Dose: Infused Metronidazole (Flagyl) 500 mg in 100 mls @ 100 mls/hr IV Q6H [facility] Last Admin: 12/09/16 12:25 Dose: 100 mls/hr Metoclopramide HCl (Reglan) 10 mg IV Q6 [facility] Last Admin: 12/09/16 12:25 Dose: 10 mg Naloxone HCl (Narcan) 0.1 mg IV Q2MIN PRN PRN Reason: Opiate Reversal Ondansetron HCl (Zofran) 4 mg IV Q4-6HP PRN PRN Reason: Nausea And Vomiting Pantoprazole Sodium (Protonix) 40 mg IV QAMAC [facility] Last Admin: 12/09/16 07:31 Dose: 40 mg Pravastatin Sodium (Pravachol) 40 mg PO HS [facility] Sodium Chloride (Saline Flush) 10 ml IV UD PRN PRN Reason: FLUSH Sodium Chloride (Saline Flush) 10 ml IV Q8 [facility] Last Admin: 12/09/16 05:06 Dose: 10 ml Medical - PN: A/P - Time Spent With Patient Total time spent is greater than 50% in coordination of care (as documented) at patient's floor/unit and/or counseling patient: - Narrative A/P Narrative: Bowel perforation. - etiology? no perf noted on operation. Peritonitis- due to bowel perf? ecoli in culture, messer sensitive Sepsis- due to above- on broad spectrum ABX, sepsis resolved. new onset afib- due to sepsis, resolved now, s/p digoxin. Dementia- resume aricept HLD- resume pravastatin BPH- resume finasterid Ileus- due to post op, passed flatus, no bm, followed by surgery, replace lytes. DVT scd DIET NPO
[2016-12-09] MEDS: ASPIRIN 81 MG TAB.CHEW PO SCH (13:13)
--- NOTE | 2016-12-09 13:47 | General Surgery Progress Note ---
Subjective Patient reports: feels better, pain is less, tolerating liquids well, flatus, bowel movement, afebrile Narrative: Note initiated : 12/09/16 at 1:43 pm Service Date, if different from initiated Date: [] Patient: Johnson Fowler 81 y/o M admitted on 12/04/16 for N/V/D for 4 Days/ Bowel Perforation. Chief Complaint: [patient continues to improve. He has less pain. He denies having nausea. He had flatus and another bowel movement. he has been afebrile. His ARETHA drains all serous.he has become more mobile with his walker assistance.] Objective Temp Pulse Resp BP Pulse Ox 98.1 F 71 20 137/74 94 12/09/16 11:44 12/09/16 11:44 12/09/16 11:44 12/09/16 11:44 12/09/16 11:44 - Additional Data Intake & Output - Last 24 hours: Intake & Output 12/07/16 12/08/16 12/09/16 12/10/16 05:59 05:59 05:59 05:59 Intake Total 3474.0909 / 3474.0909 3829.0909 / 3829.0909 1456 / 1456 950 / 950 Output Total 2060 / 2060 2440 / 2440 1730 / 1730 370 / 370 Balance 1414.0909 / 1414.0909 1389.0909 / 1389.0909 -274 / -274 580 / 580 Weight 212 lb 14.4 oz 210 lb 6.4 oz 210 lb - General physical appearance no distress - Eyes PERRL - ENT no congestion - Neck no venous distension - Respiratory normal respiratory effort, clear to auscultation - Cardiovascular Cardiovascular exam: Present: normal rate and rhythm, RRR, +S1, +S2 - Abdomen soft, non tender, bowel sounds (with active bowel sounds with no distention. Incision looks good; ARETHA drainage is serous) - Integumentary no rash - Neurologic normal coordination, normal sensation - Psychiatric oriented to time, oriented to person, oriented to place, speech is normal, memory intact - Labs 12/09/16 04:15 12/09/16 04:15 Diabetes panel 12/09/16 Range/Units 04:15 Sodium 145 (133-145) mmol/L Potassium 3.4 (3.3-5.1) mmol/L Chloride 109 H (96-108) mmol/L Carbon Dioxide 24 (22-30) mmol/L BUN 12 (8-23) mg/dl Creatinine 1.0 (0.7-1.2) mg/dl Glucose 113 H (70-105) mg/dL Calcium 7.3 L (8.6-10.4) mg/dl AST 20 (0-37) U/l ALT 16 (0-40) U/l Alkaline Phosphatase 37 L (39-117) U/L Total Protein 5.2 L (5.9-8.4) gm/dL Albumin 2.6 L (3.2-5.2) gm/dL Triglycerides 98 (<150) mg/dl Calcium panel 12/09/16 Range/Units 04:15 Calcium 7.3 L (8.6-10.4) mg/dl Phosphorus 2.1 L (2.7-4.5) mg/dL Albumin 2.6 L (3.2-5.2) gm/dL Pituitary panel 12/09/16 Range/Units 04:15 Sodium 145 (133-145) mmol/L Potassium 3.4 (3.3-5.1) mmol/L Chloride 109 H (96-108) mmol/L Carbon Dioxide 24 (22-30) mmol/L BUN 12 (8-23) mg/dl Creatinine 1.0 (0.7-1.2) mg/dl Glucose 113 H (70-105) mg/dL Calcium 7.3 L (8.6-10.4) mg/dl Adrenal panel 12/09/16 Range/Units 04:15 Sodium 145 (133-145) mmol/L Potassium 3.4 (3.3-5.1) mmol/L Chloride 109 H (96-108) mmol/L Carbon Dioxide 24 (22-30) mmol/L BUN 12 (8-23) mg/dl Creatinine 1.0 (0.7-1.2) mg/dl Glucose 113 H (70-105) mg/dL Calcium 7.3 L (8.6-10.4) mg/dl Total Bilirubin 0.5 (0.0-1.0) mg/dL AST 20 (0-37) U/l ALT 16 (0-40) U/l Alkaline Phosphatase 37 L (39-117) U/L Total Protein 5.2 L (5.9-8.4) gm/dL Albumin 2.6 L (3.2-5.2) gm/dL Assessment and Plan (1) Perforated viscus Status: Acute Assessment and plan: patient will be continued on present therapy. saline lock IV Plans for probable discharge in the morning Current Visit: Yes (2) GERD (gastroesophageal reflux disease) Status: Acute Current Visit: Yes (3) Prostate cancer Status: Acute Current Visit: Yes - Time Spent With Patient Total time spent is greater than 50% in coordination of care (as documented) at patient's floor/unit and/or counseling patient:
[2016-12-09] MEDS ORDERED: SIMVASTATIN 20 MG TABLET PO SCH (21:00)
[2016-12-09] MEDS ORDERED: DONEPEZIL 10 MG TABLET PO SCH (21:00)
[2016-12-10 05:48] LABS: Basophils # (Auto) 0 K/mcL (0.0-0.3); Basophils % (Auto) 0.3 % (0.0-2.0); Eosinophils # (Auto) 0.3 K/mcL (0.0-0.7); Eosinophils % (Auto) 3.6 % (0.0-7.0); Granulocytes % (Auto) 64.9 % (38.0-78.0); Lymphocytes # (Auto) 1.8 K/mcL (1.5-4.8); Lymphocytes % (Auto) 18.9 % (15.5-49.0); Mean Cell Volume 93.2 fL (80.0-100.0); Mean Corpuscular HGB Conc 32.9 g/dL (31.0-36.0); Mean Corpuscular Hemoglobin 30.6 pg (26.0-34.0); Monocytes # (Auto) 1.2 K/mcL (0.1-0.9); Monocytes % (Auto) 12.3 % (1.0-12.0); Platelet Count 347 K/mcL (140-440); RBC 3.62 M/mcL (4.50-5.90); Red Cell Distribution Width 14.2 % (11.5-14.5)
[2016-12-10] MEDS: PIPERACILLIN SODIUM/TAZOBACTAM 3.375 GM in DEXTROSE 5% IN WATER 50 ML IV SCH ×2 (05:55→11:05)
[2016-12-10] MEDS: METOCLOPRAMIDE 10 MG/2 ML VIAL IV SCH ×2 (06:02→12:15)
[2016-12-10] MEDS: 0.9 % SODIUM CHLORIDE 10 ML SYRINGE IV SCH ×2 (06:02→15:30)
[2016-12-10 06:12] LABS: ALT/SGPT 14 U/l (0-40); Albumin 2.3 gm/dL (3.2-5.2); Albumin/Globulin Ratio 0.8 (1.0-2.3); Alkaline Phosphatase 33 U/L (39-117); Bilirubin,Direct < 0.2 mg/dL (0.0-0.3); Blood Urea Nitrogen 9 mg/dl (8-23); Gamma Glutamyl Transpeptidase 10 U/L (8-61); Magnesium 1.8 mg/dL (1.6-2.5); Uric Acid 3.4 mg/dL (2.5-8.0)
[2016-12-10] MEDS: metroNIDAZOLE 500 MG/100 ML BAG IV SCH ×2 (06:40→12:15)
[2016-12-10] MEDS: PANTOPRAZOLE 40 MG VIAL IV SCH (07:00)
[2016-12-10] MEDS ORDERED: OMEPRAZOLE 20 MG CAPSULE PO SCH (07:30)
[2016-12-10] MEDS ORDERED: FINASTERIDE 5 MG TABLET PO SCH (09:00)
[2016-12-10] MEDS: ASPIRIN 81 MG TAB.CHEW PO SCH (09:49)
[2016-12-10] MEDS: 0.9 % SODIUM CHLORIDE 1,000 ML IV SCH (09:50)
--- NOTE | 2016-12-10 14:30 | General Surgery Progress Note ---
Subjective Patient reports: feels better, pain is less, tolerating a regular diet, flatus, bowel movement, afebrile Narrative: Note initiated : 12/10/16 at 2:27 pm Service Date, if different from initiated Date: [] Patient: Johnson Fowler 81 y/o M admitted on 12/04/16 for N/V/D for 4 Days/ Bowel Perforation. Chief Complaint: [this patient is doing well. he has no complaints. He denies nausea or vomiting. He has had some liquid bowel movements with some episodes of incontinence. His bowels are diarrheal.he is stable to discharge home] Objective Temp Pulse Resp BP Pulse Ox 97.7 F 70 18 131/70 93 12/10/16 12:00 12/10/16 12:00 12/10/16 12:00 12/10/16 12:00 12/10/16 12:00 - Additional Data Intake & Output - Last 24 hours: Intake & Output 12/08/16 12/09/16 12/10/16 12/11/16 05:59 05:59 05:59 05:59 Intake Total 3829.0909 / 3829.0909 1456 / 1456 1730 / 1730 500 / 500 Output Total 2440 / 2440 1730 / 1730 696 / 696 450 / 450 Balance 1389.0909 / 1389.0909 -274 / -274 1034 / 1034 50 / 50 Weight 210 lb 6.4 oz 210 lb 208 lb - Labs 12/10/16 04:00 12/10/16 04:00 Diabetes panel 12/10/16 Range/Units 04:00 Sodium 142 (133-145) mmol/L Potassium 3.4 (3.3-5.1) mmol/L Chloride 108 (96-108) mmol/L Carbon Dioxide 25 (22-30) mmol/L BUN 9 (8-23) mg/dl Creatinine 1.0 (0.7-1.2) mg/dl Glucose 117 H (70-105) mg/dL Calcium 7.6 L (8.6-10.4) mg/dl AST 19 (0-37) U/l ALT 14 (0-40) U/l Alkaline Phosphatase 33 L (39-117) U/L Total Protein 5.1 L (5.9-8.4) gm/dL Albumin 2.3 L (3.2-5.2) gm/dL Triglycerides 103 (<150) mg/dl Calcium panel 12/10/16 Range/Units 04:00 Calcium 7.6 L (8.6-10.4) mg/dl Phosphorus 2.2 L (2.7-4.5) mg/dL Albumin 2.3 L (3.2-5.2) gm/dL Pituitary panel 12/10/16 Range/Units 04:00 Sodium 142 (133-145) mmol/L Potassium 3.4 (3.3-5.1) mmol/L Chloride 108 (96-108) mmol/L Carbon Dioxide 25 (22-30) mmol/L BUN 9 (8-23) mg/dl Creatinine 1.0 (0.7-1.2) mg/dl Glucose 117 H (70-105) mg/dL Calcium 7.6 L (8.6-10.4) mg/dl Adrenal panel 12/10/16 Range/Units 04:00 Sodium 142 (133-145) mmol/L Potassium 3.4 (3.3-5.1) mmol/L Chloride 108 (96-108) mmol/L Carbon Dioxide 25 (22-30) mmol/L BUN 9 (8-23) mg/dl Creatinine 1.0 (0.7-1.2) mg/dl Glucose 117 H (70-105) mg/dL Calcium 7.6 L (8.6-10.4) mg/dl Total Bilirubin 0.4 (0.0-1.0) mg/dL AST 19 (0-37) U/l ALT 14 (0-40) U/l Alkaline Phosphatase 33 L (39-117) U/L Total Protein 5.1 L (5.9-8.4) gm/dL Albumin 2.3 L (3.2-5.2) gm/dL Assessment and Plan (1) Perforated viscus Status: Acute Assessment and plan: patient will be continued on present therapy. IV will be Decrease to 75 cc per hour TRANSFER TO MED/SURG. D/C NG TUBE AND FRANKLIN CATHETER FULL LIQUID DIET Current Visit: Yes (2) GERD (gastroesophageal reflux disease) Status: Acute Current Visit: Yes (3) Prostate cancer Status: Acute Current Visit: Yes - Time Spent With Patient Total time spent is greater than 50% in coordination of care (as documented) at patient's floor/unit and/or counseling patient:
--- NOTE | 2016-12-10 14:37 | Discharge Summary ---
Providers - Providers Patient information: Note initiated : 12/10/16 at 2:31 pm Service Date, if different from initiated Date: [] Patient: Johnson Fowler 81 y/o M admitted on 12/04/16 for N/V/D for 4 Days/ Bowel Perforation. Chief Complaint: [] Date of admission: 12/04/16 Discharge date: 12/10/16 Attending physician: Arcelia Jason hospitalist group. Hospitalization Hospital course: 81-year-old male admitted on 04 December with a 4 day history of recurrent severe abdominal pain with nausea and vomiting. He presented to the emergency room with a rigid abdomen and x-ray evidence of free intraperitoneal air. CT scan confirmed extensive free peritoneal air. He was explored and was found to have large volume purulentdrainage throughout his abdomen with some small bowel with inflammatory peel at the base of the mesentery. There was one area of thickening of the distal sigmoid colon above the peritoneal reflection. No area of overt perforation was encountered after isolating every piece of bowel. I could not produce any evidence of an air leak so was elected to do vigorous irrigation and drainage of all 4 quadrants. He has done well over the past 6 days. He has not had any feculent or bilious drainage in his JPs. His upper abdominal drains were removed yesterday. He still has a moderate amount of serous drainageand his pelvic drains so these will be left in place. He is afebrile and his leukocytosis has resolved. He has tolerated a regular diet and has liquid bowel movements. It is felt that he is stabledischarged home. He will be discharged on Cipro and Flagyl. He does not have pain and does not wish to hav any narcotic analgesics for home use. He is discharged in stable satisfactory condition. Discharge diagnosis: perforated viscus; suspected diverticulitis Secondary discharge diagnosis: acute peritonitis Reason for admission: perforated viscus Procedures: exploratory laparotomy with total peritoneal lavage Pertinent studies/significant findings: CT of abdomen and pelvis with contrast Complications: none Exam Temp Pulse Resp BP Pulse Ox 97.7 F 70 18 131/70 93 12/10/16 12:00 12/10/16 12:00 12/10/16 12:00 12/10/16 12:00 12/10/16 12:00 - General physical appearance well developed, well nourished, no distress - Eyes PERRL, normal ocular movement - ENT normal pinna, normal nares, normal mucosa, no hearing loss, no congestion - Head Head exam IM: Present: atraumatic, normocephalic - Neck no masses, no bruits, trachea midline, no lymphadectomy, no venous distension - Cardiovascular Cardiovascular exam IM: Present: normal rate and rhythm, irregular rhythm, +S1, +S2. Absent: JVD - Respiratory normal expansion, normal respiratory effort, clear to percussion, clear to auscultation - Abdomen Abdomen: Present: soft, tender (mildly tender abdomen with mild distention; good active bowel sounds; incision is healing nicely; ARETHA drains with serous drainage), bowel sounds Hernia: Present: none - Integumentary Present: no rash, no growths, no abnormal pigmentation - Neurologic Present: normal coordination, normal sensation - Musculoskeletal Present: normal gait, normal posture - Psychiatric Present: oriented to time, oriented to person, oriented to place, speech is normal, memory intact Discharge Plan - Patient/Caregiver Discharge Instructions Activity: increase activity as tolerated Diet: Regular Diet Additional Instructions: empty ARETHA drains once daily May shower with assistance Office visit in 2 weeks Prescriptions: Ciprofloxacin [Cipro] 500 mg PO BID #20 tablet metroNIDAZOLE [Metronidazole] 500 mg PO Q6 #40 tablet - Follow up Plan Follow up with: Arcelia Jason MD [Physician] - (Call on Sunday for a 2 week surgery follow up with Dr Jason.) Disposition: Home, Self-Care Prognosis: Fair Rehab Potential: Good I certify that the patient requires SNF services.: No Overall status at discharge: patient is not back to baseline Pending Studies Resuscitation Status Full Code Diet Full Liquid Diet Start SunDec 08 Dinner Aspirin (Aspirin) 81 mg PO DAILY [facility] Last Admin: 12/10/16 09:49 Dose: 81 mg Admin: 12/09/16 13:13 Dose: 81 mg Donepezil HCl (Aricept) 5 mg PO HS [facility] Last Admin: 12/09/16 20:10 Dose: 5 mg Finasteride (Proscar) 5 mg PO DAILY [facility] Last Admin: 12/10/16 09:49 Dose: 5 mg Heparin Sodium (Porcine) (Heparin Flush) 2 ml IV Q12 [facility] Last Admin: 12/10/16 09:49 Dose: 2 ml Admin: 12/09/16 20:10 Dose: 2 ml Admin: 12/09/16 09:33 Dose: 2 ml Admin: 12/08/16 21:59 Dose: 2 ml Piperacillin Sod/Tazobactam (Sod 3.375 gm/ Dextrose) 50 mls @ 100 mls/hr IV Q6H [facility] Last Infusion: 12/10/16 11:35 Dose: 0 mls/hr Admin: 12/10/16 11:05 Dose: 100 mls/hr Infusion: 12/10/16 06:25 Dose: 100 mls/hr Admin: 12/10/16 05:55 Dose: 100 mls/hr Infusion: 12/09/16 23:38 Dose: 0 mls/hr Admin: 12/09/16 23:08 Dose: 100 mls/hr Infusion: 12/09/16 18:05 Dose: 0 mls/hr Admin: 12/09/16 17:35 Dose: 100 mls/hr Infusion: 12/09/16 11:43 Dose: 0 mls/hr Admin: 12/09/16 11:13 Dose: 100 mls/hr Infusion: 12/09/16 05:36 Dose: 100 mls/hr Admin: 12/09/16 05:06 Dose: 100 mls/hr Infusion: 12/08/16 23:33 Dose: 100 mls/hr Admin: 12/08/16 23:03 Dose: 100 mls/hr Infusion: 12/08/16 17:17 Dose: 0 mls/hr Admin: 12/08/16 16:47 Dose: 100 mls/hr Metronidazole (Flagyl) 500 mg in 100 mls @ 100 mls/hr IV Q6H [facility] Last Infusion: 12/10/16 13:15 Dose: 0 mls/hr Admin: 12/10/16 12:15 Dose: 100 mls/hr Infusion: 12/10/16 07:40 Dose: 0 mls/hr Admin: 12/10/16 06:40 Dose: 100 mls/hr Infusion: 12/10/16 00:55 Dose: 0 mls/hr Admin: 12/09/16 23:55 Dose: 100 mls/hr Infusion: 12/09/16 19:39 Dose: 0 mls/hr Admin: 12/09/16 18:39 Dose: 100 mls/hr Infusion: 12/09/16 13:25 Dose: 100 mls/hr Admin: 12/09/16 12:25 Dose: 100 mls/hr Infusion: 12/09/16 06:51 Dose: 100 mls/hr Admin: 12/09/16 05:51 Dose: 100 mls/hr Infusion: 12/09/16 01:07 Dose: 100 mls/hr Admin: 12/09/16 00:07 Dose: 100 mls/hr Infusion: 12/08/16 18:49 Dose: 100 mls/hr Admin: 12/08/16 17:49 Dose: 100 mls/hr Metoclopramide HCl (Reglan) 10 mg IV Q6 [facility] Last Admin: 12/10/16 12:15 Dose: 10 mg Admin: 12/10/16 06:02 Dose: 10 mg Admin: 12/09/16 23:55 Dose: 10 mg Admin: 12/09/16 18:39 Dose: 10 mg Admin: 12/09/16 12:25 Dose: 10 mg Admin: 12/09/16 05:51 Dose: 10 mg Admin: 12/09/16 00:07 Dose: 10 mg Admin: 12/08/16 17:48 Dose: 10 mg Pantoprazole Sodium (Protonix) 40 mg IV QAMAC [facility] Last Admin: 12/10/16 07:00 Dose: 40 mg Admin: 12/09/16 07:31 Dose: 40 mg Simvastatin (Zocor) 20 mg PO HS [facility] Last Admin: 12/09/16 20:09 Dose: 20 mg Sodium Chloride (Saline Flush) 10 ml IV UD PRN PRN Reason: FLUSH Last Admin: 12/09/16 21:39 Dose: 10 ml Sodium Chloride (Saline Flush) 10 ml IV Q8 [facility] Last Admin: 12/10/16 06:02 Dose: 10 ml Admin: 12/09/16 20:11 Dose: 10 ml Admin: 12/09/16 13:15 Dose: 10 ml Admin: 12/09/16 05:06 Dose: 10 ml Admin: 12/08/16 21:59 Dose: 10 ml Shift Summary 12/10/16 00:56 Shift Summary by Irene Schmidt Pt A&O. Up to bathroom independently but encouraged to use call light. Void and 1 small, loose BM tonight. 2JP drains removed yesterday, 2 remaining ARETHA's draining small amounts serous fluid. Large surgical site with elliot to medial abd, dressing CDI, changed 12/09. Abd binder in place. dual lumen PICC line to right upper arm. Progress note from Dr. Jason states to SL PICC line. Patient denies nausea and pain. Should d/c today. Initialized on 12/10/16 00:56 - END OF NOTE
== END 2016-12-10 16:36 | disposition home or self-care (01) ==
LOC: ED 10:14 → SUR 17:13 → ICU 20:55 → MEDSUR 12-08 16:50
PROVIDERS: ADMIT Family Medicine Adult Medicine; ATTEND Family Medicine Adult Medicine

== ENCOUNTER 2022-07-20 14:07 | Inpatient (IN) ==
[2022-07-20] MEDS ORDERED: 0.9 % SODIUM CHLORIDE 1,000 ML IV ONE (15:55)
--- NOTE | 2022-07-20 16:07 | Emergency Department Note ---
Weakness HPI General Chief complaint: Weakness Stated complaint: Weak, failure to thrive Time Seen by Provider: 07/20/22 14:31 Source: EMS Mode of arrival: EMS Limitations: no limitations History of Present Illness HPI Narrative: Narrative: This is an 87-year-old male who presents emergency department via [facility] from [facility] facilities were concerned of decreased oral intake and altered level of consciousness. They first noticed this over the last 2 to 3 days and reported to the nurse that this is happened before and he was given fluids and perked back up and was discharged home. Unable to get any history from the patient there is no family here currently. There is no reported history of fevers or vomiting patient has a history of the dementia, atrial fibrillation, depression, BPH Related Data Previous Rx's Medication Instructions Recorded donepezil 10 mg tablet 10 mg PO HS #90 tabs 11/08/21 finasteride 5 mg tablet 5 mg PO DAILY #90 tabs 11/08/21 memantine 5 mg tablet 5 mg PO QAM #90 tabs 11/08/21 nystatin 100,000 unit/gram topical 1 applic topical TID PRN groin 11/08/21 powder rash #30 grams tamsulosin 0.4 mg capsule 0.4 mg PO QDAY #90 caps 11/08/21 acetaminophen 500 mg capsule 500 mg PO Q6H PRN fever or pain #1 12/08/21 cap sertraline 25 mg tablet 25 mg PO QHS #90 tabs 06/06/22 Allergies Allergy/AdvReac Type Severity Reaction Status Date / Time No Known Drug Allergies Allergy Verified 07/20/22 14:12 Review of Systems ROS ROS Narrative: Narrative: All systems ED: reviewed and negative except as stated. [facility] Narrative Patient History Narrative: Narrative: Medical/Surgical/Family History All Active Problems (Updated 07/20/22 @ 20:26 by Zana Hickman PA-C) Acute hypernatremia (Acute) Acute UTI (Acute) Adult failure to thrive (Acute) Hypernatremia (Acute) BPH (benign prostatic hyperplasia) (Acute) Comfort measures only status (Acute) At risk for falling (Acute) Candidal diaper dermatitis (Acute) Proteinuria (Acute) Medicare annual wellness visit, subsequent (Acute) Urinary frequency (Acute) Orthostatic dizziness (Chronic) Dementia (Chronic) Aortic ejection murmur (Chronic) Chronic diastolic heart failure (Chronic) Non-rheumatic tricuspid valve insufficiency (Chronic) Mild cognitive impairment (Chronic) Body mass index (bmi) 31.0-31.9, adult (Chronic) Neoplasm of skin (Chronic) Basal cell carcinoma (Chronic) History of jaundice as a child (Chronic) History of hemorrhoids (Chronic) Heartburn (Chronic) AAA (abdominal aortic aneurysm) (Chronic) History of atrial fibrillation (Chronic) Hyperlipidemia (Chronic) Joint pain (Chronic) Gallbladder problem (Chronic) Skin cancer (Chronic) Arthritis (Chronic) Perforated abdominal viscus (Chronic) Hand contusion (Chronic) Prostate cancer (Chronic) Medical History AAA (abdominal aortic aneurysm) Stable on follow-up ultrasound February 2020 Repeat ultrasound in February 2020 Aortic ejection murmur Arthritis Basal cell carcinoma Body mass index (bmi) 31.0-31.9, adult Chronic diastolic heart failure Concussion with loss of consciousness Dementia Advanced, likely Alzheimer's disease. Living at [facility] Diverticulitis large intestine Essential hypertension Gallbladder problem GERD (gastroesophageal reflux disease) Hand contusion Heartburn History of atrial fibrillation Seen on at least one occasion on EKG in 2017 during hospital admission. 48-hour Holter monitor last month showed no atrial fibrillation. History of hemorrhoids History of jaundice as a child History of measles History of mumps Hyperlipidemia Now back on pravastatin but he is concerned that is causing dizziness in the morning. Lipid panel is well controlled. We will hold pravastatin and see if it improves his orthostasis. Joint pain Medicare annual wellness visit, subsequent Mild cognitive impairment Neoplasm of skin Non-rheumatic tricuspid valve insufficiency Orthostatic dizziness Continue to drink plenty of fluids high salt intake to maintain blood pressure Perforated peptic ulcer Prostate cancer h/o. Treated remotely. PSA stable at around 2. Start Flomax for urinary frequency and nocturia Skin cancer Surgical History Hemorrhoids Hernia History of anal fissures (~2014) History of exploratory laparotomy 12/04/2016-with total peritoneal lavage and drainage History of knee replacement (~05/2009) History of tonsillectomy (~1940) Family History Father Arthritis Social History Smoking Status: Former smoker Alcohol Intake Frequency: does not drink Substance Use: does not use Exam Narrative Narrative: Narrative: General: Alert, cachectic, he is more stiff than is typical but this is apparently how he usually looks when he comes in according to the nurse Gertrude who is the charge nurse. Head: No trauma normocephalic Eyes: PERRLA ENT: Mucous membranes are dry. There is a blackish looking substance on the his tongue and the roof of his mouth. Unsure what this is at this time as it could be food or blood. Cardiovascular: Regular rate and rhythm no murmur Respiratory: Poor respiratory effort. Mild bibasilar Rales Abdomen pelvis: Abdomen is soft and nontender to palpation. There is no guarding no rebound tenderness. Negative Jimenez sign. No tenderness over McBurney's point. Neuro: Patient is alert unable to talk or answer any questions Skin: Warm, no rash, normal color General Limitations: no limitations Course Vital Signs Vital signs: Vital Signs Temperature 98.5 F 07/20/22 14:09 Pulse Rate 87 07/20/22 14:09 Respiratory Rate 18 07/20/22 14:09 Blood Pressure 118/89 07/20/22 14:09 Pulse Oximetry (%) 97 07/20/22 14:09 Oxygen Delivery Method 07/20/22 14:09 Temperature 98.5 F 07/20/22 14:09 Pulse Rate 70 07/20/22 20:01 Respiratory Rate 18 07/20/22 14:09 Blood Pressure 103/65 07/20/22 20:01 Pulse Oximetry (%) 97 07/20/22 20:01 Oxygen Delivery Method 07/20/22 20:01 Oxygen Flow Rate (L/min) 1 07/20/22 20:01 [facility] Narrative Medical decision making narrative: Narrative: Unknown if he uses oxygen at his baseline. We will call to get more information from [facility] on this patient. His labs are reviewed. Hypernatremia and urinary tract infection. For urinary tract infection I have ordered 1 g ceftriaxone For his hypernatremia I have only done 1 L of normal saline so far and we will admit to the hospitalist for further evaluation and treatment of his hypernatremia. I spoke with Dr. Maribel almazan who agreed to admit the patient for further evaluation and treatment of his urinary tract infection and hypernatremia. Lab Data Result diagrams: 07/20/22 16:14 07/20/22 16:14 Labs: Lab Results 07/20/22 07/20/22 07/20/22 Range/Units 16:14 16:14 16:14 WBC 13.3 H (4.5-11.0) K/mcL RBC 4.13 L (4.63-6.08) M/mcL Hgb 12.3 L (13.7-17.5) g/dL Hct 39.1 L (40.1-51.0) % MCV 94.7 (80.0-100.0) fL MCH 29.8 (26.0-34.0) pg MCHC 31.5 (31.0-36.0) g/dL RDW 14.3 (11.5-14.5) % Plt Count 337 (140-440) K/mcL MPV 11.2 (8.8-12.5) fL Immature Gran % (Auto) 0.3 (0.0-0.5) % Neut % (Auto) 75.3 (38.0-78.0) % Lymph % (Auto) 17.5 (15.5-49.0) % Bennett % (Auto) 6.6 (1.0-12.0) % Eos % (Auto) 0.1 (0.0-7.0) % Baso % (Auto) 0.2 (0.0-2.0) % Lymph # (Auto) 2.33 (1.50-4.80) K/mcL Bennett # (Auto) 0.88 (0.10-0.90) K/mcL Eos # (Auto) 0.01 (0.00-0.70) K/mcL Baso # (Auto) 0.03 (0.00-0.30) K/mcL Immature Gran # 0.04 (0.00-0.05) K/mcl Absolute Neutrophils 10.03 H (1.80-8.00) K/mcL Sodium 152 H (133-145) mmol/L Potassium 3.7 (3.3-5.1) mmol/L Chloride 113 H (96-108) mmol/L Carbon Dioxide 27 (22-30) mmol/L Anion Gap 12.0 (8.0-16.0) BUN 28 H (8-23) mg/dL Creatinine 1.1 (0.7-1.2) mg/dL GFR Calculation 60 Glucose 101 (70-105) mg/dL Calcium 9.0 (8.6-10.4) mg/dL Magnesium 2.6 H (1.6-2.5) mg/dL Total Bilirubin 0.4 (0.1-1.0) mg/dL AST 15 (<40) U/L ALT 8 (<40) U/L Alkaline Phosphatase 71 (39-117) U/L Ammonia 15 L (16-60) umol/L Total Protein 7.0 (5.9-8.4) gm/dL Albumin 3.1 L (3.2-5.2) gm/dL Globulin 3.9 H (2.2-3.7) gm/dL Albumin/Globulin Ratio 0.8 L (1.0-2.3) Urine Color Urine Appearance (Clear) Urine pH (5.0-9.0) Ur Specific [place] (1.000-1.035) Urine Protein (Negative) mg/dL Urine Glucose (UA) (Negative) mg/dL Urine Ketones (Negative) mg/dL Urine Occult Blood (Negative) sera/mcL Urine Nitrate (Negative) Urine Bilirubin (Negative) mg/dL Urine Urobilinogen mg/dL Ur Leukocyte Esterase (Negative) /uL Urine RBC (0-3) /hpf Urine WBC (0-4) /hpf Ur Squamous Epith Cells (0-4) /hpf Urine Bacteria (0) /hpf Hyaline Casts (0-2) /lph Urine Mucus (None) /hpf Ur Culture Indicated? 07/20/22 Range/Units 17:55 WBC (4.5-11.0) K/mcL RBC (4.63-6.08) M/mcL Hgb (13.7-17.5) g/dL Hct (40.1-51.0) % MCV (80.0-100.0) fL MCH (26.0-34.0) pg MCHC (31.0-36.0) g/dL RDW (11.5-14.5) % Plt Count (140-440) K/mcL MPV (8.8-12.5) fL Immature Gran % (Auto) (0.0-0.5) % Neut % (Auto) (38.0-78.0) % Lymph % (Auto) (15.5-49.0) % Bennett % (Auto) (1.0-12.0) % Eos % (Auto) (0.0-7.0) % Baso % (Auto) (0.0-2.0) % Lymph # (Auto) (1.50-4.80) K/mcL Bennett # (Auto) (0.10-0.90) K/mcL Eos # (Auto) (0.00-0.70) K/mcL Baso # (Auto) (0.00-0.30) K/mcL Immature Gran # (0.00-0.05) K/mcl Absolute Neutrophils (1.80-8.00) K/mcL Sodium (133-145) mmol/L Potassium (3.3-5.1) mmol/L Chloride (96-108) mmol/L Carbon Dioxide (22-30) mmol/L Anion Gap (8.0-16.0) BUN (8-23) mg/dL Creatinine (0.7-1.2) mg/dL GFR Calculation Glucose (70-105) mg/dL Calcium (8.6-10.4) mg/dL Magnesium (1.6-2.5) mg/dL Total Bilirubin (0.1-1.0) mg/dL AST (<40) U/L ALT (<40) U/L Alkaline Phosphatase (39-117) U/L Ammonia (16-60) umol/L Total Protein (5.9-8.4) gm/dL Albumin (3.2-5.2) gm/dL Globulin (2.2-3.7) gm/dL Albumin/Globulin Ratio (1.0-2.3) Urine Color Lt. yellow Urine Appearance Sl cloudy A (Clear) Urine pH 6.0 (5.0-9.0) Ur Specific [place] 1.015 (1.000-1.035) Urine Protein 30 A (Negative) mg/dL Urine Glucose (UA) Negative (Negative) mg/dL Urine Ketones 15 A (Negative) mg/dL Urine Occult Blood Trace-intact A (Negative) sera/mcL Urine Nitrate Negative (Negative) Urine Bilirubin Negative (Negative) mg/dL Urine Urobilinogen Normal mg/dL Ur Leukocyte Esterase Moderate A (Negative) /uL Urine RBC 3 (0-3) /hpf Urine WBC 49 H (0-4) /hpf Ur Squamous Epith Cells 1 (0-4) /hpf Urine Bacteria None (0) /hpf Hyaline Casts 12 H (0-2) /lph Urine Mucus Many A (None) /hpf Ur Culture Indicated? yes ED POC Tests ED POC Tests: [facility] - SARS Antigen Negative Discharge Plan Patient/Caregiver Discharge Instructions Pt seen by CUSTOMER ACCOUNT COORDINATOR/PA only: Yes Clinical Impression: Acute hypernatremia, Acute UTI Activity: increase activity as tolerated Patient Disposition: Xfer As Inpt ([facility]) Condition: Serious Follow up with: Riki Delaney DO [Primary Care Provider] - Prescriptions: No Action nystatin 100,000 unit/gram powder 1 applic topical TID PRN (Reason: groin rash) Qty: 30 2RF Rx Instructions: with diaper changes donepezil 10 mg tablet 10 mg PO HS Qty: 90 3RF tamsulosin 0.4 mg capsule 0.4 mg PO QDAY Qty: 90 3RF finasteride 5 mg tablet 5 mg PO DAILY Qty: 90 3RF memantine 5 mg tablet 5 mg PO QAM Qty: 90 3RF acetaminophen 500 mg capsule 500 mg PO Q6H PRN (Reason: fever or pain) Qty: 1 0RF sertraline 25 mg tablet 25 mg PO QHS Qty: 90 1RF
--- NOTE | 2022-07-20 16:37 | XRay Report ---
INDICATION: AMS TECHNIQUE: AP portable upright chest x-ray COMPARISON: Chest x-rays dated 11/23/2021, 08/25/2021, 11/30/1716 FINDINGS: Lungs:Lungs are negative. No focal pulmonary parenchymal infiltrate or mass Heart, vascular:No significant cardiomegaly. Pulmonary vascularity is normal. No pulmonary edema or pulmonary congestion Mediastinum, cari:No mediastinal widening. No hilar mass Pleura:No pleural fluid. No pleural-based mass or calcification Skeletal:Negative. IMPRESSION: No acute abnormality Interpreted and Authenticated by: Riki Bernal 07/20/22
--- NOTE | 2022-07-20 16:45 | Cat Scan Report ---
INDICATION: AMS COMPARISON: Previous brain CT scans dated 12/23/2021, 11/23/2021, 08/25/2021, 03/20/2015, 01/23/2014 TECHNIQUE: Axial noncontrast-enhanced images through the brain. Sagittally and coronally reformatted images. FINDINGS: Cerebral hemispheres:No acute intra-axial hemorrhage. There is cerebral atrophy with enlargement superficial subarachnoid spaces and ventricles. There is white matter abnormality consistent with small vessel ischemic change in this 79-year-old patient. There is encephalomalacia in the medial, anterior right temporal lobe. Due to intra-axial attenuation abnormalities. No localized mass effect. Brainstem and cerebellum:There is cerebellar atrophy. No focal abnormality. Sternum is negative Extra-axial:No acute hemorrhage. No subdural or epidural hematoma. No subarachnoid hemorrhage. Basilar cisterns are normal Calvarial:No calvarial fracture. No lytic lesion Temporal bones are negative. No destructive lesions Soft tissue, orbits, sinuses:There is minimal fluid within the maxillary sinuses consistent with sinusitis IMPRESSION: 1. Cerebral atrophy and white matter abnormality consistent with small vessel ischemic change 2. No acute intracranial hemorrhage. No acute intra-axial abnormality 3. Cerebellar atrophy 4. Mild inflammatory disease in the maxillary sinuses The exam was performed using radiation dose optimization techniques including, but not limited to, automated exposure control, adjustment of the mA and/or kV according to patient size and use of iterative reconstruction technique. Interpreted and Authenticated by: Riki Beranl 07/20/22
[2022-07-20 16:57] LABS: Basophils # (Auto) 0.03 K/mcL (0.00-0.30); Basophils % (Auto) 0.2 % (0.0-2.0); Eosinophils # (Auto) 0.01 K/mcL (0.00-0.70); Eosinophils % (Auto) 0.1 % (0.0-7.0); Hematocrit 39.1 % (40.1-51.0); Hemoglobin 12.3 g/dL (13.7-17.5); Lymphocytes # (Auto) 2.33 K/mcL (1.50-4.80); Lymphocytes % (Auto) 17.5 % (15.5-49.0); Mean Cell Volume 94.7 fL (80.0-100.0); Mean Corpuscular HGB Conc 31.5 g/dL (31.0-36.0); Mean Platelet Volume 11.2 fL (8.8-12.5); Monocytes # (Auto) 0.88 K/mcL (0.10-0.90); Monocytes % (Auto) 6.6 % (1.0-12.0); Neutrophils % (Auto) 75.3 % (38.0-78.0); Platelet Count 337 K/mcL (140-440); RBC 4.13 M/mcL (4.63-6.08); Red Cell Distribution Width 14.3 % (11.5-14.5); WBC 13.3 K/mcL (4.5-11.0)
[2022-07-20 17:19] LABS: ALT/SGPT 8 U/L (<40); AST/SGOT 15 U/L (<40); Albumin 3.1 gm/dL (3.2-5.2); Albumin/Globulin Ratio 0.8 (1.0-2.3); Alkaline Phosphatase 71 U/L (39-117); Bilirubin,Total 0.4 mg/dL (0.1-1.0); Blood Urea Nitrogen 28 mg/dL (8-23); Carbon Dioxide 27 mmol/L (22-30); Chloride 113 mmol/L (96-108); Globulin 3.9 gm/dL (2.2-3.7); Glomerular Filtration Rate 60; Glucose 101 mg/dL (70-105)
[2022-07-20] MEDS ORDERED: cefTRIAXone 1 GM VIAL IV ONE (18:50)
[2022-07-20 19:00] LABS: Appearance,Urine SL CLOUDY (Clear); Bilirubin,Urine Negative (Negative); Color,Urine LT. YELLOW; Culture Indicated,Urine yes; Glucose,Urine (UA) NEGATIVE (Negative); Ketones,Urine 15 mg/dL (Negative); Leukocyte Esterase,Urine MODERATE /uL (Negative); Mucus,Urine MANY /hpf; Nitrate,Urine NEGATIVE (Negative); Protein,Urine 30 mg/dL (Negative); Specific Gravity,Urine 1.015 (1.000-1.035); Urine Blood TRACE-INTACT ery/mcL (Negative); Urine Hyaline Cast 12 /lph (0-2); Urine RBC 3 /hpf (0-3); Urine Squamous Epithelial Cell 1 /hpf (0-4); Urine WBC 49 /hpf (0-4); Urobilinogen,Urine Normal
[2022-07-20] MEDS ORDERED: NYSTATIN POWDER BOTTLE 15GM TOPICAL PRN (19:31)
[2022-07-20] MEDS ORDERED: ACETAMINOPHEN 500 MG TABLET PO PRN (19:39)
--- NOTE | 2022-07-20 19:45 | Internal Med History&Physical ---
HPI History of Present Illness Patient information: Note initiated : 07/20/22 at 7:37 pm Service Date, if different from initiated Date: [] Patient: Johnson Fowler a 87 y/o M admitted on for Weak, failure to thrive. Chief Complaint: [altered mental status, decreased food intake] Chief complaint: altered mental status, decreased food intake History of present illness: Mr. Fowler is a 87 year old M history of advanced dementia, BPH, longterm resident, presenting with 3-day history of altered mental status and decreased food intake. It is reported by longterm staff that over the past 3 days, patient has progressively worsening altered mental status, decreased alertness, and decreased oral food intake. He had a similar episode in the past for multiple times. There is a signed POLST form in his chart stating DNR comfort measures only, okay for IV fluid, does not want feeding tube, and it did not state especially whether they would want antibiotics treatments or not. Remarkable labs including a white count of 13.3, serum sodium level of 152, and urine analysis suggesting the presence of urinary tract infections. Admission request was called for comfort care measures and potentially treatment for hy ponatremia and urinary tract infections. Review of Systems ROS unobtainable: due to mental status PFSH PFSH All Active Problems (Updated 07/20/22 @ 19:43 by Gabino López MD) Adult failure to thrive (Acute) Hypernatremia (Acute) BPH (benign prostatic hyperplasia) (Acute) Comfort measures only status (Acute) At risk for falling (Acute) Candidal diaper dermatitis (Acute) Proteinuria (Acute) Medicare annual wellness visit, subsequent (Acute) Urinary frequency (Acute) Orthostatic dizziness (Chronic) Dementia (Chronic) Aortic ejection murmur (Chronic) Chronic diastolic heart failure (Chronic) Non-rheumatic tricuspid valve insufficiency (Chronic) Mild cognitive impairment (Chronic) Body mass index (bmi) 31.0-31.9, adult (Chronic) Neoplasm of skin (Chronic) Basal cell carcinoma (Chronic) History of jaundice as a child (Chronic) History of hemorrhoids (Chronic) Heartburn (Chronic) AAA (abdominal aortic aneurysm) (Chronic) History of atrial fibrillation (Chronic) Hyperlipidemia (Chronic) Joint pain (Chronic) Gallbladder problem (Chronic) Skin cancer (Chronic) Arthritis (Chronic) Perforated abdominal viscus (Chronic) Hand contusion (Chronic) Prostate cancer (Chronic) Medical History AAA (abdominal aortic aneurysm) Stable on follow-up ultrasound February 2020 Repeat ultrasound in February 2020 Aortic ejection murmur Arthritis Basal cell carcinoma Body mass index (bmi) 31.0-31.9, adult Chronic diastolic heart failure Concussion with loss of consciousness Dementia Advanced, likely Alzheimer's disease. Living at [facility] Diverticulitis large intestine Essential hypertension Gallbladder problem GERD (gastroesophageal reflux disease) Hand contusion Heartburn History of atrial fibrillation Seen on at least one occasion on EKG in 2017 during hospital admission. 48-hour Holter monitor last month showed no atrial fibrillation. History of hemorrhoids History of jaundice as a child History of measles History of mumps Hyperlipidemia Now back on pravastatin but he is concerned that is causing dizziness in the morning. Lipid panel is well controlled. We will hold pravastatin and see if it improves his orthostasis. Joint pain Medicare annual wellness visit, subsequent Mild cognitive impairment Neoplasm of skin Non-rheumatic tricuspid valve insufficiency Orthostatic dizziness Continue to drink plenty of fluids high salt intake to maintain blood pressure Perforated peptic ulcer Prostate cancer h/o. Treated remotely. PSA stable at around 2. Start Flomax for urinary frequency and nocturia Skin cancer Surgical History Hemorrhoids Hernia History of anal fissures (~2014) History of exploratory laparotomy 12/04/2016-with total peritoneal lavage and drainage History of knee replacement (~05/2009) History of tonsillectomy (~1940) Family History Father Arthritis Social History marital status: smoking status: Former smoker quit date: 08/13/79 alcohol intake frequency: does not drink substance use type: does not use MEDS/ALLERGIES Home Medications and Allergies Home Medications Medication Instructions Recorded Confirmed Type donepezil 10 mg tablet 10 mg PO HS #90 tabs 11/08/21 07/20/22 Rx finasteride 5 mg tablet 5 mg PO DAILY #90 tabs 11/08/21 07/20/22 Rx memantine 5 mg tablet 5 mg PO QAM #90 tabs 11/08/21 07/20/22 Rx nystatin 100,000 unit/gram topical 1 applic topical TID PRN groin 11/08/21 07/20/22 Rx powder rash #30 grams tamsulosin 0.4 mg capsule 0.4 mg PO QDAY #90 caps 11/08/21 07/20/22 Rx acetaminophen 500 mg capsule 500 mg PO Q6H PRN fever or pain #1 12/08/21 07/20/22 Rx cap sertraline 25 mg tablet 25 mg PO QHS #90 tabs 06/06/22 07/20/22 Rx Allergies Allergy/AdvReac Type Severity Reaction Status Date / Time No Known Drug Allergies Allergy Verified 07/20/22 14:12 EXAM Constitutional Vitals: Temp Pulse Resp BP Pulse Ox O2 Del Method O2 Flow Rate 36.9 C 78 18 118/76 96 2 07/20/22 14:09 07/20/22 19:28 07/20/22 14:09 07/20/22 19:28 07/20/22 19:28 07/20/22 15:31 07/20/22 15:31 General appearance: disheveled and thin; no cooperative Exam: nonverbal cachectic Head Head exam: Present atraumatic and normocephalic Eye Eye exam: Present EOMI and PERRL ENT ENT exam: Present mucous membranes moist, normal exam and normal external ear exam Neck Neck exam: Present normal inspection; Absent lymphadenopathy, tenderness or thyromegaly Respiratory Respiratory exam: Absent accessory muscle use, respiratory distress or wheezes Cardiovascular Cardiovascular exam: Present normal rate and rhythm; Absent JVD GI/Abdominal GI/Abdominal exam: Present normal bowel sounds and soft; Absent organomegaly or tenderness Rectal Rectal exam: Present deferred Extremities Exam Extremities exam: Present full ROM, normal capillary refill and normal inspection; Absent tenderness Neurological Exam Neurological exam: Present altered and CN II-XII intact; Absent alert, motor sensory deficit or oriented X3 Additional comments: nonverbal not responding to voice Psychiatric Psychiatric exam: Present normal affect and normal mood; Absent anxious or depressed Skin Skin exam: Present dry and intact DATA Data Completed and Pending Labs: Labs from last 24 hours 07/20/22 07/20/22 07/20/22 17:55 16:14 16:14 WBC RBC Hgb Hct MCV MCH MCHC RDW Plt Count MPV Immature Gran % (Auto) Neut % (Auto) Lymph % (Auto) [place] % (Auto) Eos % (Auto) Baso % (Auto) Lymph # (Auto) [place] # (Auto) Eos # (Auto) Baso # (Auto) Immature Gran # Absolute Neutrophils Sodium 152 H Potassium 3.7 Chloride 113 H Carbon Dioxide 27 Anion Gap 12.0 BUN 28 H Creatinine 1.1 GFR Calculation 60 Glucose 101 Calcium 9.0 Magnesium 2.6 H Total Bilirubin 0.4 AST 15 ALT 8 Alkaline Phosphatase 71 Ammonia 15 L Total Protein 7.0 Albumin 3.1 L Globulin 3.9 H Albumin/Globulin Ratio 0.8 L Urine Color Lt. yellow Urine Appearance Sl cloudy A Urine pH 6.0 Ur Specific [place] 1.015 Urine Protein 30 A Urine Glucose (UA) Negative Urine Ketones 15 A Urine Occult Blood Trace-intact A Urine Nitrate Negative Urine Bilirubin Negative Urine Urobilinogen Normal Ur Leukocyte Esterase Moderate A Urine RBC 3 Urine WBC 49 H Ur Squamous Epith Cells 1 Urine Bacteria None Hyaline Casts 12 H Urine Mucus Many A Ur Culture Indicated? yes 07/20/22 16:14 WBC 13.3 H RBC 4.13 L Hgb 12.3 L Hct 39.1 L MCV 94.7 MCH 29.8 MCHC 31.5 RDW 14.3 Plt Count 337 MPV 11.2 Immature Gran % (Auto) 0.3 Neut % (Auto) 75.3 Lymph % (Auto) 17.5 [place] % (Auto) 6.6 Eos % (Auto) 0.1 Baso % (Auto) 0.2 Lymph # (Auto) 2.33 [place] # (Auto) 0.88 Eos # (Auto) 0.01 Baso # (Auto) 0.03 Immature Gran # 0.04 Absolute Neutrophils 10.03 H Sodium Potassium Chloride Carbon Dioxide Anion Gap BUN Creatinine GFR Calculation Glucose Calcium Magnesium Total Bilirubin AST ALT Alkaline Phosphatase Ammonia Total Protein Albumin Globulin Albumin/Globulin Ratio Urine Color Urine Appearance Urine pH Ur Specific [place] Urine Protein Urine Glucose (UA) Urine Ketones Urine Occult Blood Urine Nitrate Urine Bilirubin Urine Urobilinogen Ur Leukocyte Esterase Urine RBC Urine WBC Ur Squamous Epith Cells Urine Bacteria Hyaline Casts Urine Mucus Ur Culture Indicated? A/P Assessment and plan (1) Comfort measures only status: Status: Acute (2) Dementia: Status: Chronic Comment: Advanced, likely Alzheimer's disease. Living at [facility] facility Qualifiers: Dementia type: unspecified type Dementia behavioral disturbance: without behavioral disturbance Qualified Code(s): F03.90 - Unspecified dementia without behavioral disturbance (3) BPH (benign prostatic hyperplasia): Status: Acute (4) Hypernatremia: Status: Acute (5) Adult failure to thrive: Status: Acute Narrative A/P Narrative: Assessment and Plans: 1. Adult failure to thrive, advanced dementia, comfort care measures status: Observation med surg Will clarify with family regarding goal of care and whether treatment is antibiotics is okay or not Comfort care measures wind energy project manager consult 2. Hypernatremia: 1/2NS@75cc/hr Serial BMP to trend serum sodium level 3. UTI: Lactic acid Blood culture Urine culture cbc w/ auto diff in the morning to trend WBC Rocephin 1/2NS@75cc/hr 4. Benign prostatic hypertrophy: Finasteride Tamsulosin GI ppx: not currently indicated DV ppx: not currently indicated, comfort care status Code status: DNR, comfort care status Prognosis: poor Disposition: observation med surg Time Spent With Patient Time: Total time spent is greater than 50% in coordination of care (as documented) at patient's floor/unit and/or counseling patient: Total time spent with greater than 50% in coordination of care (as documented) at patient's floor/unit and/or counseling patient:: 50 - 70 minutes
[2022-07-20] MEDS ORDERED: ACETAMINOPHEN 325 MG TABLET PO PRN (21:13)
[2022-07-20] MEDS ORDERED: traZODone HCL 50 MG TABLET PO PRN (21:13)
[2022-07-20] MEDS ORDERED: 0.45 % SODIUM CHLORIDE 1,000 ML IV SCH (21:13)
[2022-07-20] MEDS ORDERED: ONDANSETRON 4 MG/2 ML VIAL IV PRN (21:13)
[2022-07-20] MEDS ORDERED: LACTOPEROXI/GLUC OXID/POT THIO 1 EACH GEL..EA. TOPICAL PRN (21:13)
[2022-07-20] MEDS ORDERED: morphine 4 MG/ML VIAL IV PRN (21:13)
[2022-07-20] MEDS ORDERED: IPRATROPIUM/ALBUTEROL 3 ML AMPUL.NEB NEB PRN (21:13)
[2022-07-20] MEDS ORDERED: LORazepam 2 MG/ML VIAL IV PRN (21:13)
[2022-07-20] MEDS ORDERED: cefTRIAXone 1 GM in DEXTROSE 5% IN WATER 50 ML IV SCH (21:13)
[2022-07-20] MEDS ORDERED: 0.9 % SODIUM CHLORIDE 10 ML SYRINGE IV SCH (22:00)
[2022-07-20] MEDS: SERTRALINE 50 MG TABLET PO SCH (22:26)
[2022-07-20] MEDS: SENNOSIDES 1 TABLET PO SCH (22:26)
[2022-07-20] MEDS: DONEPEZIL 10 MG TABLET PO SCH (22:26)
[2022-07-20] MEDS: DOCUSATE SODIUM 100 MG CAPSULE PO SCH (22:26)
[2022-07-20] MEDS: 0.9 % SODIUM CHLORIDE 10 ML SYRINGE IV SCH (22:27)
[2022-07-21] MEDS: 0.9 % SODIUM CHLORIDE 10 ML SYRINGE IV SCH ×3 (06:00→22:04)
[2022-07-21 07:19] LABS: Basophils # (Auto) 0.03 K/mcL (0.00-0.30); Basophils % (Auto) 0.2 % (0.0-2.0); Eosinophils # (Auto) 0.01 K/mcL (0.00-0.70); Eosinophils % (Auto) 0.1 % (0.0-7.0); Hematocrit 37.2 % (40.1-51.0); Hemoglobin 11.7 g/dL (13.7-17.5); Lymphocytes # (Auto) 2.79 K/mcL (1.50-4.80); Lymphocytes % (Auto) 21.3 % (15.5-49.0); Mean Cell Volume 96.6 fL (80.0-100.0); Mean Corpuscular HGB Conc 31.5 g/dL (31.0-36.0); Monocytes # (Auto) 0.85 K/mcL (0.10-0.90); Monocytes % (Auto) 6.5 % (1.0-12.0); Neutrophils % (Auto) 71.4 % (38.0-78.0); Platelet Count 342 K/mcL (140-440); RBC 3.85 M/mcL (4.63-6.08); Red Cell Distribution Width 14.4 % (11.5-14.5); WBC 13.1 K/mcL (4.5-11.0)
[2022-07-21 07:58] LABS: Blood Urea Nitrogen 28 mg/dL (8-23); Calcium 8.6 mg/dL (8.6-10.4); Carbon Dioxide 25 mmol/L (22-30); Chloride 117 mmol/L (96-108); Glomerular Filtration Rate 60; Glucose 106 mg/dL (70-105)
--- NOTE | 2022-07-21 08:22 | EKG ---
[facility] Test Date: 2022-07-20 Pat Name: Johnson Fowler Department: ED Room: Gender: Male Claims Support Specialist: CS : [id number] Requested By: Zana Hickman Order Number: [id number] Reading MD: Riki Weller M.D. Measurements Intervals [place] Rate: 79 P: 96 TX: 124 QRS: -31 QRSD: 88 T: 58 QT: 399 QTc: 456 Interpretive Statements Sinus rhythm Probable left atrial enlargement Left axis deviation Motion artifact Electronically Signed On 07-21-2022 8:22:05 PST by Riki Weller M.D. /store/[email or web address]/[id number]
[2022-07-21] MEDS: FINASTERIDE 5 MG TABLET PO SCH (08:49)
[2022-07-21] MEDS: DOCUSATE SODIUM 100 MG CAPSULE PO SCH ×2 (08:49→22:04)
[2022-07-21] MEDS: TAMSULOSIN 0.4 MG CAPSULE PO SCH (08:49)
[2022-07-21] MEDS: MEMANTINE 10 MG TABLET PO SCH (08:49)
[2022-07-21] MEDS: cefTRIAXone 1 GM VIAL IV SCH (08:50)
[2022-07-21] MEDS: DEXTROSE 5%-1/2NS 1,000 ML IV SCH (10:19)
--- NOTE | 2022-07-21 11:34 | Internal Med Progress Note ---
SUBJECTIVE Subjective Patient information: Note initiated : 07/21/22 at 11:29 am Service Date, if different from initiated Date: [] Patient: Johnson Fowler a 87 y/o M admitted on 07/20/22 for Weak, failure to thrive. Chief Complaint: [] Interval history: Mr. Fowler is a 87 year old M history of advanced dementia, BPH, senior care resident, presenting with 3-day history of altered mental status and decreased food intake. It is reported by senior care staff that over the past 3 days, patient has progressively worsening altered mental status, decreased alertness, and decreased oral food intake. He had a similar episode in the past for multi ple times. There is a signed POLST form in his chart stating DNR comfort measures only, okay for IV fluid, does not want feeding tube, and it did not state especially whether they would want antibiotics treatments or not. Remarkable labs including a white count of 13.3, serum sodium level of 152, and urine analysis suggesting the presence of urinary tract infections. Admission request was called for comfort care measures and potentially treatment for hyponatremia and urinary tract infections. 07/21: Status changed from comfort measures only to DNR with full treatments. Blood and urine culture no growth today. Serum sodium level worsened from 1 52-1 54. Patient has still not woken up and has not been taking any oral medication or oral food or drinks. Subjective not obtainable due to clinical situations. Changed to IV fluid from half NS at 75 cc/h to D5 half NS at 100 cc/h. Continue to trend electrolytes. Continue to monitor for blood and urine culture results. We will get wound care consult for deep tissue injury to sacrum and left gluteal area. Continue to work closely with caseworker intake for placement planning. Constitutional Vitals: Vital Signs Temp Pulse Resp BP Pulse Ox O2 Del Method O2 Flow Rate 36.3 C 71 14 97/52 95 1 07/21/22 06:49 07/21/22 06:49 07/21/22 06:49 07/21/22 06:49 07/21/22 06:49 07/21/22 06:49 07/20/22 20:01 Period Temp Pulse Resp BP Sys/Kennedy Pulse Ox O2 Del Method O2 Flow Rate Last 24 Hr 36.3 C-36.9 C 66-89 14-18 97-150/52-97 94-100 Nasal Cannula- Room Air 1-2 Intake and Output 07/20/22 07/21/22 07/21/22 19:59 03:59 11:59 Intake Total 1000 881 Output Total 3 Balance 1000 878 Weight 53.07 kg 51.12 kg Intake & Output: Intake & Output 07/20/22 07/21/22 07/21/22 19:59 03:59 11:59 Intake Total 1000 881 Output Total 3 Balance 1000 878 Weight 53.07 kg 51.12 kg Intake: IV 1000 881 Sodium Chloride 0.45% 1,000 ml 881 @ 75 mls/hr IV .[id number] Rx# :[id number] Sodium Chloride 0.9% 1,000 ml @ 1000 Wide Open IV BOLUS ONE Rx#: [id number] Output: # of times incontinent of urine 3 Other: Urine Appearance Straight Clear Urine Color Dark Sylvia Straight Dark Yellow Urine Odor Strong # Bowel Movements 0 # of times incontinent of 0 Bowels General appearance: disheveled, no acute distress and thin Head Head exam: Present atraumatic and normal inspection Eye Eye exam: Present normal appearance ENT ENT exam: Present mucous membranes moist, normal exam and normal external ear exam Neck Neck exam: Present normal inspection Respiratory Respiratory exam: Present normal respiratory exam Cardiovascular Cardiovascular exam: Present normal rate and rhythm GI/Abdominal GI/Abdominal exam: Present normal bowel sounds Back Exam Back exam: Present normal inspection Neurological Exam Neurological exam: Present altered; Absent alert or oriented X3 Additional comments: Not alert Skin Skin exam: Present warm; Absent intact Additional comments: Deep tissue injury to sacral/left gluteal regions OBJ DATA Labs CBC & Chem 7: 07/21/22 06:20 07/21/22 06:20 Labs: Abnormal Lab Results 07/21/22 07/21/22 07/20/22 06:20 06:20 17:55 WBC 13.1 H RBC 3.85 L Hgb 11.7 L Hct 37.2 L Immature Gran # 0.06 H Absolute Neutrophils 9.38 H Sodium 154 H Chloride 117 H BUN 28 H Glucose 106 H Magnesium Ammonia Albumin Globulin Albumin/Globulin Ratio Urine Appearance Sl cloudy A Urine Protein 30 A Urine Ketones 15 A Urine Occult Blood Trace-intact A Ur Leukocyte Esterase Moderate A Urine WBC 49 H Hyaline Casts 12 H Urine Mucus Many A 07/20/22 07/20/22 07/20/22 16:14 16:14 16:14 WBC 13.3 H RBC 4.13 L Hgb 12.3 L Hct 39.1 L Immature Gran # Absolute Neutrophils 10.03 H Sodium 152 H Chloride 113 H BUN 28 H Glucose Magnesium 2.6 H Ammonia 15 L Albumin 3.1 L Globulin 3.9 H Albumin/Globulin Ratio 0.8 L Urine Appearance Urine Protein Urine Ketones Urine Occult Blood Ur Leukocyte Esterase Urine WBC Hyaline Casts Urine Mucus Meds: Medications Acetaminophen (Acetaminophen 325 Mg Tablet) 650 mg PO Q6HP PRN; Protocol PRN Reason: Per Pain Protocol/Fever > 101 Albuterol/Ipratropium (Ipratropium/Albuterol 3 Ml Ampul.Neb) 3 ml NEB Q4HRT PRN PRN Reason: Wheezing Ceftriaxone Sodium (Ceftriaxone 1 Gm Vial) 1 gm IV Q24H [facility] Last Admin: 07/21/22 08:50 Dose: 1 gm Docusate Sodium (Docusate Sodium 100 Mg Capsule) 100 mg PO BID [facility] Last Admin: 07/21/22 08:49 Dose: Not Given Donepezil HCl (Donepezil 10 Mg Tablet) 10 mg PO HS [facility] Last Admin: 07/20/22 22:26 Dose: Not Given Finasteride (Finasteride 5 Mg Tablet) 5 mg PO DAILY [facility] Last Admin: 07/21/22 08:49 Dose: Not Given Glucose Oxid/Lactoperoxid/Muramidas (Lactoperoxi/Gluc Oxid/Pot Thio 1 Each Gel..Ea.) 1 each TOPICAL PRN PRN PRN Reason: Dry Mouth Dextrose/Sodium Chloride (Dextrose 5%-1/2ns Iv Solution) 1,000 mls @ 100 mls/hr IV .Q10H [facility] Last Admin: 07/21/22 10:19 Dose: 100 mls/hr Lorazepam (Lorazepam 2 Mg/Ml Vial) 0 mg IV Q1HP PRN; Protocol PRN Reason: ANXIETY/SEDATION Memantine (Memantine 10 Mg Tablet) 5 mg PO QAM [facility] Last Admin: 07/21/22 08:49 Dose: Not Given Morphine Sulfate (Morphine 4 Mg/Ml Vial) 2 - 6 mg IV Q1HP PRN; Protocol PRN Reason: Per Pain Protocol Nystatin (Nystatin Powder Bottle 15gm) 1 dose TOPICAL TIDP PRN PRN Reason: groin rash Ondansetron HCl (Ondansetron 4 Mg/2 Ml Vial) 4 mg IV Q6HP PRN PRN Reason: Nausea And Vomiting Senna (Sennosides 1 Tablet) 2 tab PO HS [facility] Last Admin: 07/20/22 22:26 Dose: Not Given Sertraline HCl (Sertraline 50 Mg Tablet) 25 mg PO QHS [facility] Last Admin: 07/20/22 22:26 Dose: Not Given Sodium Chloride (0.9 % Sodium Chloride 10 Ml Syringe) 10 ml IV Q8 [facility] Last Admin: 07/21/22 06:00 Dose: Not Given Tamsulosin HCl (Tamsulosin 0.4 Mg Capsule) 0.4 mg PO QDAY [facility] Last Admin: 07/21/22 08:49 Dose: Not Given Trazodone HCl (Trazodone Hcl 50 Mg Tablet) 25 mg PO HSP PRN PRN Reason: Insomnia A/P Assessment and plan (1) Comfort measures only status: Status: Acute (2) Dementia: Status: Chronic Comment: Advanced, likely Alzheimer's disease. Living at [facility] Qualifiers: Dementia type: unspecified type Dementia behavioral disturbance: without behavioral disturbance Qualified Code(s): F03.90 - Unspecified dementia without behavioral disturbance (3) BPH (benign prostatic hyperplasia): Status: Acute (4) Hypernatremia: Status: Acute (5) Adult failure to thrive: Status: Acute (6) Decubitus ulcer: Status: Acute Narrative A/P Narrative: Assessment and Plans: 1. Adult failure to thrive, advanced dementia: Inpatient med surg Will clarify with family regarding goal of care with POA constantly Comfort care measures senior national account manager consult 2. Hypernatremia: D5 1/2NS@100cc/hr Serial BMP to trend serum sodium level 3. UTI: Lactic acid 1.0 Blood culture, no growth to date Urine culture, no growth to date cbc w/ auto diff in the morning to trend WBC Continue Rocephin D5 1/2NS@100cc/hr 4. Benign prostatic hypertrophy: Finasteride Tamsulosin 5. Decubitus ulcer, sacrum/gluteal region: Consult wound care team for wound care needs GI ppx: not currently indicated DV ppx: Lovenox Code status: DNR Prognosis: poor Disposition: inpatient med surg Time Spent With Patient Time: Total time spent is greater than 50% in coordination of care (as documented) at patient's floor/unit and/or counseling patient: Total time spent with greater than 50% in coordination of care (as documented) at patient's floor/unit and/or counseling patient:: 25 - 35 minutes QUALITY VTE Deep Vein Thrombosis/Pulmonary Embolism Present on Admission: No
[2022-07-21] MEDS: SERTRALINE 50 MG TABLET PO SCH (22:04)
[2022-07-21] MEDS: DONEPEZIL 10 MG TABLET PO SCH (22:04)
[2022-07-21] MEDS: SENNOSIDES 1 TABLET PO SCH (22:04)
[2022-07-22] MEDS: 0.9 % SODIUM CHLORIDE 10 ML SYRINGE IV SCH ×2 (04:31→12:22)
[2022-07-22] MEDS: DEXTROSE 5%-1/2NS 1,000 ML IV SCH ×4 (04:31→20:00)
[2022-07-22 06:55] LABS: Basophils # (Auto) 0.04 K/mcL (0.00-0.30); Basophils % (Auto) 0.3 % (0.0-2.0); Eosinophils # (Auto) 0.01 K/mcL (0.00-0.70); Eosinophils % (Auto) 0.1 % (0.0-7.0); Hematocrit 34.1 % (40.1-51.0); Hemoglobin 11.3 g/dL (13.7-17.5); Lymphocytes # (Auto) 2.41 K/mcL (1.50-4.80); Lymphocytes % (Auto) 16.9 % (15.5-49.0); Mean Cell Volume 95.8 fL (80.0-100.0); Mean Corpuscular HGB Conc 33.1 g/dL (31.0-36.0); Mean Platelet Volume 11.3 fL (8.8-12.5); Monocytes # (Auto) 1.03 K/mcL (0.10-0.90); Monocytes % (Auto) 7.2 % (1.0-12.0); Neutrophils % (Auto) 74.6 % (38.0-78.0); Platelet Count 321 K/mcL (140-440); RBC 3.56 M/mcL (4.63-6.08); Red Cell Distribution Width 14.5 % (11.5-14.5); WBC 14.3 K/mcL (4.5-11.0)
[2022-07-22 07:10] LABS: Blood Urea Nitrogen 23 mg/dL (8-23); Calcium 8.2 mg/dL (8.6-10.4); Carbon Dioxide 22 mmol/L (22-30); Chloride 117 mmol/L (96-108); Glomerular Filtration Rate 60; Glucose 171 mg/dL (70-105)
[2022-07-22] MEDS: FINASTERIDE 5 MG TABLET PO SCH (08:19)
[2022-07-22] MEDS: TAMSULOSIN 0.4 MG CAPSULE PO SCH (08:19)
[2022-07-22] MEDS: DOCUSATE SODIUM 100 MG CAPSULE PO SCH (08:19)
[2022-07-22] MEDS: MEMANTINE 10 MG TABLET PO SCH (08:19)
[2022-07-22] MEDS: cefTRIAXone 1 GM VIAL IV SCH (08:25)
[2022-07-22] MEDS: ENOXAPARIN 40 MG/0.4 ML SYRINGE SQ SCH (08:25)
[2022-07-22] MEDS ORDERED: POTASSIUM CHLORIDE 20 MEQ in DEXTROSE 5% IN WATER 250 ML IV ONE (08:34)
--- NOTE | 2022-07-22 08:34 | Internal Med Progress Note ---
SUBJECTIVE Subjective Patient information: Note initiated : 07/22/22 at 8:33 am Service Date, if different from initiated Date: [] Patient: Johnson Fowler a 87 y/o M admitted on 07/20/22 for Weak, failure to thrive. Chief Complaint: [] Interval history: Mr. Fowler is a 87 year old M history of advanced dementia, BPH, senior care resident, presenting with 3-day history of altered mental status and decreased food intake. It is reported by senior care staff that over the past 3 days, patient has progressively worsening altered mental status, decreased alertness, and decreased oral food intake. He had a similar episode in the past for multip le times. There is a signed POLST form in his chart stating DNR comfort measures only, okay for IV fluid, does not want feeding tube, and it did not state especially whether they would want antibiotics treatments or not. Remarkable labs including a white count of 13.3, serum sodium level of 152, and urine analysis suggesting the presence of urinary tract infections. Admission request was called for comfort care measures and potentially treatment for hyponatremia and urinary tract infections. 07/21: Status changed from comfort measures only to DNR with full treatments. Blood and urine culture no growth today. Serum sodium level worsened from 1 52-1 54. Patient has still not woken up and has not been taking any oral medication or oral food or drinks. Subjective not obtainable due to clinical situations. Changed to IV fluid from half NS at 75 cc/h to D5 half NS at 100 cc/h. Continue to trend electrolytes. Continue to monitor for blood and urine culture results. We will get wound care consult for deep tissue injury to sacrum and left gluteal area. Continue to work closely with employment case manager for placement planning. 07/22: Patient remains comatose. All cultures no growth to date. Serum sodium/potassium 149/3.0, respectively. Subjective not obtainable due to clinical situations. Continue D5 1/2NS@100cc/hr for hypernatremia. Potassium rider for hypokalemia. Daily BMP and serum Mg level to trend. Continue Rocephin while monitoring for blood and urine culture results. Continue wound care as per wound care team recs. Continue to work closely with employment case manager for placement planning. Constitutional Vitals: Vital Signs Temp Pulse Resp BP Pulse Ox O2 Del Method O2 Flow Rate 37.1 C 61 12 95/54 92 1 07/22/22 07:00 07/22/22 07:00 07/22/22 07:00 07/22/22 07:00 07/22/22 07:00 07/22/22 07:00 07/20/22 20:01 Period Temp Pulse Resp BP Sys/Kennedy Pulse Ox O2 Del Method O2 Flow Rate Last 24 Hr 36.4 C-37.4 C 61-75 12-17 89-108/53-68 92-94 Room Air-Room Air Intake and Output 07/21/22 07/22/22 07/22/22 19:59 03:59 11:59 Intake Total 240 1000 Balance 240 1000 Weight 51.12 kg Intake & Output: Intake & Output 07/21/22 07/22/22 07/22/22 19:59 03:59 11:59 Intake Total 240 1000 Balance 240 1000 Weight 51.12 kg Intake: IV 1000 Dextrose 5%-1/2Ns IV Solution 1 1000 ,000 ml @ 100 mls/hr IV .Q10H [facility] Rx#:[id number] Oral 240 Other: Urine Odor Strong General appearance: thin Head Head exam: Present atraumatic and normal inspection Eye Eye exam: Present normal appearance ENT ENT exam: Present mucous membranes moist, normal exam and normal external ear e xam Neck Neck exam: Present normal inspection Respiratory Respiratory exam: Present normal respiratory exam Cardiovascular Cardiovascular exam: Present normal rate and rhythm GI/Abdominal GI/Abdominal exam: Present normal bowel sounds Back Exam Back exam: Present normal inspection Neurological Exam Neurological exam: Absent alert or oriented X3 Additional comments: Comatose Skin Skin exam: Present warm; Absent intact Additional comments: Sacral and gluteal region deep ulcers OBJ DATA Labs CBC & Chem 7: 07/22/22 05:37 07/22/22 05:37 Labs: Abnormal Lab Results 07/22/22 07/22/22 07/21/22 05:37 05:37 06:20 WBC 14.3 H RBC 3.56 L Hgb 11.3 L Hct 34.1 L Immature Gran % (Auto) 0.9 H [place] # (Auto) 1.03 H Immature Gran # 0.13 H Absolute Neutrophils 10.67 H Sodium 149 H 154 H Potassium 3.0 L Chloride 117 H 117 H BUN 28 H Glucose 171 H 106 H Calcium 8.2 L Magnesium Ammonia Albumin Globulin Albumin/Globulin Ratio Urine Appearance Urine Protein Urine Ketones Urine Occult Blood Ur Leukocyte Esterase Urine WBC Hyaline Casts Urine Mucus 07/21/22 07/20/22 07/20/22 06:20 17:55 16:14 WBC 13.1 H RBC 3.85 L Hgb 11.7 L Hct 37.2 L Immature Gran % (Auto) [place] # (Auto) Immature Gran # 0.06 H Absolute Neutrophils 9.38 H Sodium Potassium Chloride BUN Glucose Calcium Magnesium Ammonia 15 L Albumin Globulin Albumin/Globulin Ratio Urine Appearance Sl cloudy A Urine Protein 30 A Urine Ketones 15 A Urine Occult Blood Trace-intact A Ur Leukocyte Esterase Moderate A Urine WBC 49 H Hyaline Casts 12 H Urine Mucus Many A 07/20/22 07/20/22 16:14 16:14 WBC 13.3 H RBC 4.13 L Hgb 12.3 L Hct 39.1 L Immature Gran % (Auto) [place] # (Auto) Immature Gran # Absolute Neutrophils 10.03 H Sodium 152 H Potassium Chloride 113 H BUN 28 H Glucose Calcium Magnesium 2.6 H Ammonia Albumin 3.1 L Globulin 3.9 H Albumin/Globulin Ratio 0.8 L Urine Appearance Urine Protein Urine Ketones Urine Occult Blood Ur Leukocyte Esterase Urine WBC Hyaline Casts Urine Mucus Meds: Medications Acetaminophen (Acetaminophen 325 Mg Tablet) 650 mg PO Q6HP PRN; Protocol PRN Reason: Per Pain Protocol/Fever > 101 Albuterol/Ipratropium (Ipratropium/Albuterol 3 Ml Ampul.Neb) 3 ml NEB Q4HRT PRN PRN Reason: Wheezing Ceftriaxone Sodium (Ceftriaxone 1 Gm Vial) 1 gm IV Q24H [facility] Last Admin: 07/22/22 08:25 Dose: 1 gm Docusate Sodium (Docusate Sodium 100 Mg Capsule) 100 mg PO BID [facility] Last Admin: 07/22/22 08:19 Dose: Not Given Donepezil HCl (Donepezil 10 Mg Tablet) 10 mg PO HS [facility] Last Admin: 07/21/22 22:04 Dose: Not Given Enoxaparin Sodium (Enoxaparin 40 Mg/0.4 Ml Syringe) 40 mg SQ DAILY [facility] Last Admin: 07/22/22 08:25 Dose: 40 mg Finasteride (Finasteride 5 Mg Tablet) 5 mg PO DAILY [facility] Last Admin: 07/22/22 08:19 Dose: Not Given Glucose Oxid/Lactoperoxid/Muramidas (Lactoperoxi/Gluc Oxid/Pot Thio 1 Each Gel..Ea.) 1 each TOPICAL PRN PRN PRN Reason: Dry Mouth Dextrose/Sodium Chloride (Dextrose 5%-1/2ns Iv Solution) 1,000 mls @ 100 mls/hr IV .Q10H [facility] Last Admin: 07/22/22 08:26 Dose: Not Given Lorazepam (Lorazepam 2 Mg/Ml Vial) 0 mg IV Q1HP PRN; Protocol PRN Reason: ANXIETY/SEDATION Memantine (Memantine 10 Mg Tablet) 5 mg PO QAM [facility] Last Admin: 07/22/22 08:19 Dose: Not Given Morphine Sulfate (Morphine 4 Mg/Ml Vial) 2 - 6 mg IV Q1HP PRN; Protocol PRN Reason: Per Pain Protocol Nystatin (Nystatin Powder Bottle 15gm) 1 dose TOPICAL TIDP PRN PRN Reason: groin rash Ondansetron HCl (Ondansetron 4 Mg/2 Ml Vial) 4 mg IV Q6HP PRN PRN Reason: Nausea And Vomiting Senna (Sennosides 1 Tablet) 2 tab PO HS [facility] Last Admin: 07/21/22 22:04 Dose: Not Given Sertraline HCl (Sertraline 50 Mg Tablet) 25 mg PO QHS [facility] Last Admin: 07/21/22 22:04 Dose: Not Given Sodium Chloride (0.9 % Sodium Chloride 10 Ml Syringe) 10 ml IV Q8 [facility] Last Admin: 07/22/22 04:31 Dose: Not Given Tamsulosin HCl (Tamsulosin 0.4 Mg Capsule) 0.4 mg PO QDAY [facility] Last Admin: 07/22/22 08:19 Dose: Not Given Trazodone HCl (Trazodone Hcl 50 Mg Tablet) 25 mg PO HSP PRN PRN Reason: Insomnia A/P Assessment and plan (1) Comfort measures only status: Status: Acute (2) Dementia: Status: Chronic Comment: Advanced, likely Alzheimer's disease. Living at [facility] Qualifiers: Dementia type: unspecified type Dementia behavioral disturbance: without behavioral disturbance Qualified Code(s): F03.90 - Unspecified dementia without behavioral disturbance (3) BPH (benign prostatic hyperplasia): Status: Acute (4) Hypernatremia: Status: Acute (5) Adult failure to thrive: Status: Acute (6) Decubitus ulcer: Status: Acute (7) Hypokalemia: Status: Acute Narrative A/P Narrative: Assessment and Plans: 1. Adult failure to thrive, advanced dementia: Inpatient med surg Will clarify with family regarding goal of care with POA constantly line manager consult 2. Hypernatremia: D5 1/2NS@100cc/hr Serial BMP to trend serum sodium level 3. UTI: Lactic acid 1.0 Blood culture, no growth to date Urine culture, no growth to date cbc w/ auto diff in the morning to trend WBC Continue Rocephin D5 1/2NS@100cc/hr 4. Benign prostatic hypertrophy: Finasteride Tamsulosin 5. Decubitus ulcer, sacrum/gluteal region: Consult wound care team for wound care needs 6. Hypokalemia: Potassium rider for replacement Daily BMP to trend, repeat replacement if needed Also check serum Mg level and replace if needed GI ppx: not currently indicated DV ppx: Lovenox Code status: DNR Prognosis: poor Disposition: inpatient med surg Time Spent With Patient Time: Total time spent is greater than 50% in coordination of care (as documented) at patient's floor/unit and/or counseling patient: Total time spent with greater than 50% in coordination of care (as documented) at patient's floor/unit and/or counseling patient:: 25 - 35 minutes QUALITY VTE Deep Vein Thrombosis/Pulmonary Embolism Present on Admission: No
[2022-07-23] MEDS: DOCUSATE SODIUM 100 MG CAPSULE PO SCH ×3 (01:38→22:04)
[2022-07-23] MEDS: DONEPEZIL 10 MG TABLET PO SCH ×2 (01:38→22:02)
[2022-07-23] MEDS: SENNOSIDES 1 TABLET PO SCH ×2 (01:39→22:06)
[2022-07-23] MEDS: SERTRALINE 50 MG TABLET PO SCH ×2 (01:39→22:02)
[2022-07-23] MEDS: 0.9 % SODIUM CHLORIDE 10 ML SYRINGE IV SCH ×4 (01:39→21:59)
[2022-07-23 07:08] LABS: Basophils # (Auto) 0.03 K/mcL (0.00-0.30); Basophils % (Auto) 0.2 % (0.0-2.0); Eosinophils # (Auto) 0.07 K/mcL (0.00-0.70); Eosinophils % (Auto) 0.5 % (0.0-7.0); Hematocrit 33.7 % (40.1-51.0); Hemoglobin 10.4 g/dL (13.7-17.5); Lymphocytes # (Auto) 2.41 K/mcL (1.50-4.80); Lymphocytes % (Auto) 15.8 % (15.5-49.0); Mean Cell Volume 95.7 fL (80.0-100.0); Mean Corpuscular HGB Conc 30.9 g/dL (31.0-36.0); Mean Platelet Volume 11.3 fL (8.8-12.5); Monocytes # (Auto) 1.06 K/mcL (0.10-0.90); Neutrophils % (Auto) 75.9 % (38.0-78.0); Platelet Count 311 K/mcL (140-440); RBC 3.52 M/mcL (4.63-6.08); Red Cell Distribution Width 14.2 % (11.5-14.5); WBC 15.2 K/mcL (4.5-11.0)
[2022-07-23 07:54] LABS: Blood Urea Nitrogen 18 mg/dL (8-23); Calcium 8.5 mg/dL (8.6-10.4); Carbon Dioxide 27 mmol/L (22-30); Chloride 115 mmol/L (96-108); Glomerular Filtration Rate 67; Glucose 133 mg/dL (70-105)
[2022-07-23] MEDS: ENOXAPARIN 40 MG/0.4 ML SYRINGE SQ SCH (08:09)
[2022-07-23] MEDS: MEMANTINE 10 MG TABLET PO SCH (08:09)
[2022-07-23] MEDS: TAMSULOSIN 0.4 MG CAPSULE PO SCH (08:09)
[2022-07-23] MEDS: cefTRIAXone 1 GM VIAL IV SCH (08:09)
[2022-07-23] MEDS: FINASTERIDE 5 MG TABLET PO SCH (08:09)
[2022-07-23] MEDS: DEXTROSE 5%-1/2NS 1,000 ML IV SCH ×2 (08:25→16:00)
--- NOTE | 2022-07-23 10:30 | Internal Med Progress Note ---
SUBJECTIVE Subjective Patient information: Note initiated : 07/23/22 at 10:25 am Service Date, if different from initiated Date: [] Patient: Johnson Fowler a 87 y/o M admitted on 07/20/22 for Weak, failure to thrive. Chief Complaint: [] Interval history: Mr. Fowler is a 87 year old M history of advanced dementia, BPH, half-way resident, presenting with 3-day history of altered mental status and decreased food intake. It is reported by half-way staff that over the past 3 days, patient has progressively worsening altered mental status, decreased alertness, and decreased oral food intake. He had a similar episode in the past for multi ple times. There is a signed POLST form in his chart stating DNR comfort measures only, okay for IV fluid, does not want feeding tube, and it did not state especially whether they would want antibiotics treatments or not. Remarkable labs including a white count of 13.3, serum sodium level of 152, and urine analysis suggesting the presence of urinary tract infections. Admission request was called for comfort care measures and potentially treatment for hyponatremia and urinary tract infections. 07/21: Status changed from comfort measures only to DNR with full treatments. Blood and urine culture no growth today. Serum sodium level worsened from 1 52-1 54. Patient has still not woken up and has not been taking any oral medication or oral food or drinks. Subjective not obtainable due to clinical situations. Changed to IV fluid from half NS at 75 cc/h to D5 half NS at 100 cc/h. Continue to trend electrolytes. Continue to monitor for blood and urine culture results. We will get wound care consult for deep tissue injury to sacrum and left gluteal area. Continue to work closely with case sealer for placement planning. 07/22: Patient remains comatose. All cultures no growth to date. Serum sodium/potassium 149/3.0, respectively. Subjective not obtainable due to clinical situations. Continue D5 1/2NS@100cc/hr for hypernatremia. Potassium rider for hypokalemia. Daily BMP and serum Mg level to trend. Continue Rocephin while monitoring for blood and urine culture results. Continue wound care as per wound care team recs. Continue to work closely with case sealer for placement planning. 07/23: Urine culture: actinotignum schaalii group; blood culture no growth to date. Serum sodium/potassium 149/3.4, respectively. Patient is awake, making a few indistinguishable words. Nurse was able to feed the patient is a few bites of food, but the patient was not able to tolerate any fluid intake. Subjective not obtainable due to clinical situations. Continue D5 1/2NS@50cc/hr for hypernatremia. Potassium rider for hypokalemia. Daily BMP and serum Mg level to trend. Continue Rocephin while monitoring for blood and urine culture results. Continue wound care as per wound care team recs. Continue to work closely with case sealer for placement planning. Constitutional Vitals: Vital Signs Temp Pulse Resp BP Pulse Ox O2 Del Method O2 Flow Rate 36.7 C 57 L 16 98/53 99 1 07/23/22 08:00 07/23/22 08:00 07/23/22 08:00 07/23/22 08:00 07/23/22 08:00 07/23/22 08:00 07/20/22 20:01 Period Temp Pulse Resp BP Sys/Kennedy Pulse Ox O2 Del Method O2 Flow Rate Last 24 Hr 36.3 C-37.8 C 56-66 14-18 87-113/51-96 90-99 Room Air-Room Air Intake and Output 07/22/22 07/23/22 07/23/22 19:59 03:59 11:59 Intake Total 1260 960 621 Output Total 1 1 Balance 1260 959 620 Intake & Output: Intake & Output 07/22/22 07/23/22 07/23/22 19:59 03:59 11:59 Intake Total 1260 960 621 Output Total 1 1 Balance 1260 959 620 Intake: IV 1260 960 621 Dextrose 5%-1/2Ns IV Solution 1 1000 960 621 ,000 ml @ 50 mls/hr IV .Q20H [facility] Rx#:[id number] Potassium Chloride 20 Meq In 260 Dextrose 5% in Water 250 ml @ 130 mls/hr IV ONCE ONE Rx#: [id number] Output: # of times incontinent of urine 1 1 Other: Meal Breakfast Percent of Meal Consumed bites Feeding Ability Total Assistance Urine Color Dark Yellow Urine Odor Normal # Voids 1 # Bowel Movements 0 General appearance: thin Exam: Awake, making a few indistinguishable words Head Head exam: Present atraumatic and normal inspection Eye Eye exam: Present normal appearance ENT ENT exam: Present mucous membranes moist, normal exam and normal external ear exam Neck Neck exam: Present normal inspection Respiratory Respiratory exam: Present normal respiratory exam Cardiovascular Cardiovascular exam: Present normal rate and rhythm GI/Abdominal GI/Abdominal exam: Present normal bowel sounds Back Exam Back exam: Present normal inspection Neurological Exam Neurological exam: Present alert and oriented X3 Skin Skin exam: Present warm; Absent intact Additional comments: Sacral and gluteal region deep ulcers OBJ DATA Labs CBC & Chem 7: 07/23/22 06:25 07/23/22 05:46 Labs: Abnormal Lab Results 07/23/22 07/23/22 07/22/22 06:25 05:46 05:37 WBC 15.2 H RBC 3.52 L Hgb 10.4 L Hct 33.7 L MCHC 30.9 L Immature Gran % (Auto) 0.6 H [place] # (Auto) 1.06 H Immature Gran # 0.09 H Absolute Neutrophils 11.56 H Sodium 149 H 149 H Potassium 3.0 L Chloride 115 H 117 H Anion Gap 7.0 L BUN Glucose 133 H 171 H Calcium 8.5 L 8.2 L Magnesium Ammonia Albumin Globulin Albumin/Globulin Ratio Urine Appearance Urine Protein Urine Ketones Urine Occult Blood Ur Leukocyte Esterase Urine WBC Hyaline Casts Urine Mucus 07/22/22 07/21/22 07/21/22 05:37 06:20 06:20 WBC 14.3 H 13.1 H RBC 3.56 L 3.85 L Hgb 11.3 L 11.7 L Hct 34.1 L 37.2 L MCHC Immature Gran % (Auto) 0.9 H [place] # (Auto) 1.03 H Immature Gran # 0.13 H 0.06 H Absolute Neutrophils 10.67 H 9.38 H Sodium 154 H Potassium Chloride 117 H Anion Gap BUN 28 H Glucose 106 H Calcium Magnesium Ammonia Albumin Globulin Albumin/Globulin Ratio Urine Appearance Urine Protein Urine Ketones Urine Occult Blood Ur Leukocyte Esterase Urine WBC Hyaline Casts Urine Mucus 07/20/22 07/20/22 07/20/22 17:55 16:14 16:14 WBC RBC Hgb Hct MCHC Immature Gran % (Auto) [place] # (Auto) Immature Gran # Absolute Neutrophils Sodium 152 H Potassium Chloride 113 H Anion Gap BUN 28 H Glucose Calcium Magnesium 2.6 H Ammonia 15 L Albumin 3.1 L Globulin 3.9 H Albumin/Globulin Ratio 0.8 L Urine Appearance Sl cloudy A Urine Protein 30 A Urine Ketones 15 A Urine Occult Blood Trace-intact A Ur Leukocyte Esterase Moderate A Urine WBC 49 H Hyaline Casts 12 H Urine Mucus Many A 07/20/22 16:14 WBC 13.3 H RBC 4.13 L Hgb 12.3 L Hct 39.1 L MCHC Immature Gran % (Auto) [place] # (Auto) Immature Gran # Absolute Neutrophils 10.03 H Sodium Potassium Chloride Anion Gap BUN Glucose Calcium Magnesium Ammonia Albumin Globulin Albumin/Globulin Ratio Urine Appearance Urine Protein Urine Ketones Urine Occult Blood Ur Leukocyte Esterase Urine WBC Hyaline Casts Urine Mucus Meds: Medications Acetaminophen (Acetaminophen 325 Mg Tablet) 650 mg PO Q6HP PRN; Protocol PRN Reason: Per Pain Protocol/Fever > 101 Albuterol/Ipratropium (Ipratropium/Albuterol 3 Ml Ampul.Neb) 3 ml NEB Q4HRT PRN PRN Reason: Wheezing Ceftriaxone Sodium (Ceftriaxone 1 Gm Vial) 1 gm IV Q24H [facility] Last Admin: 07/23/22 08:09 Dose: 1 gm Docusate Sodium (Docusate Sodium 100 Mg Capsule) 100 mg PO BID [facility] Last Admin: 07/23/22 08:09 Dose: Not Given Donepezil HCl (Donepezil 10 Mg Tablet) 10 mg PO HS [facility] Last Admin: 07/23/22 01:38 Dose: Not Given Enoxaparin Sodium (Enoxaparin 40 Mg/0.4 Ml Syringe) 40 mg SQ DAILY [facility] Last Admin: 07/23/22 08:09 Dose: 40 mg Finasteride (Finasteride 5 Mg Tablet) 5 mg PO DAILY [facility] Last Admin: 07/23/22 08:09 Dose: Not Given Glucose Oxid/Lactoperoxid/Muramidas (Lactoperoxi/Gluc Oxid/Pot Thio 1 Each Gel..Ea.) 1 each TOPICAL PRN PRN PRN Reason: Dry Mouth Dextrose/Sodium Chloride (Dextrose 5%-1/2ns Iv Solution) 1,000 mls @ 50 mls/hr IV .Q20H [facility] Last Admin: 07/23/22 08:25 Dose: 50 mls/hr Lorazepam (Lorazepam 2 Mg/Ml Vial) 0 mg IV Q1HP PRN; Protocol PRN Reason: ANXIETY/SEDATION Memantine (Memantine 10 Mg Tablet) 5 mg PO QAM [facility] Last Admin: 07/23/22 08:09 Dose: Not Given Morphine Sulfate (Morphine 4 Mg/Ml Vial) 2 - 6 mg IV Q1HP PRN; Protocol PRN Reason: Per Pain Protocol Nystatin (Nystatin Powder Bottle 15gm) 1 dose TOPICAL TIDP PRN PRN Reason: groin rash Ondansetron HCl (Ondansetron 4 Mg/2 Ml Vial) 4 mg IV Q6HP PRN PRN Reason: Nausea And Vomiting Senna (Sennosides 1 Tablet) 2 tab PO HS [facility] Last Admin: 07/23/22 01:39 Dose: Not Given Sertraline HCl (Sertraline 50 Mg Tablet) 25 mg PO QHS [facility] Last Admin: 07/23/22 01:39 Dose: Not Given Sodium Chloride (0.9 % Sodium Chloride 10 Ml Syringe) 10 ml IV Q8 [facility] Last Admin: 07/23/22 06:43 Dose: Not Given Tamsulosin HCl (Tamsulosin 0.4 Mg Capsule) 0.4 mg PO QDAY [facility] Last Admin: 07/23/22 08:09 Dose: Not Given Trazodone HCl (Trazodone Hcl 50 Mg Tablet) 25 mg PO HSP PRN PRN Reason: Insomnia A/P Assessment and plan (1) Comfort measures only status: Status: Acute (2) Dementia: Status: Chronic Comment: Advanced, likely Alzheimer's disease. Living at [facility] Qualifiers: Dementia type: unspecified type Dementia behavioral disturbance: wit massiel behavioral disturbance Qualified Code(s): F03.90 - Unspecified dementia without behavioral disturbance (3) BPH (benign prostatic hyperplasia): Status: Acute (4) Hypernatremia: Status: Acute (5) Adult failure to thrive: Status: Acute (6) Decubitus ulcer: Status: Acute (7) Hypokalemia: Status: Acute Narrative A/P Narrative: Assessment and Plans: 1. Adult failure to thrive, advanced dementia: Inpatient med surg Will clarify with family regarding goal of care with POA constantly manager fire consult 2. Hypernatremia: D5 1/2NS@50cc/hr Serial BMP to trend serum sodium level 3. UTI: Lactic acid 1.0 Blood culture, actinotignum schaalii group Urine culture, no growth to date cbc w/ auto diff in the morning to trend WBC Continue Rocephin D5 1/2NS@50cc/hr 4. Benign prostatic hypertrophy: Finasteride Tamsulosin 5. Decubitus ulcer, sacrum/gluteal region: Consult wound care team for wound care needs 6. Hypokalemia: Potassium rider for replacement Daily BMP to trend, repeat replacement if needed Also check serum Mg level and replace if needed GI ppx: not currently indicated DV ppx: Lovenox Code status: DNR Prognosis: poor Disposition: inpatient med surg Time Spent With Patient Time: Total time spent is greater than 50% in coordination of care (as documented) at patient's floor/unit and/or counseling patient: Total time spent with greater than 50% in coordination of care (as documented) at patient's floor/unit and/or counseling patient:: 25 - 35 minutes QUALITY VTE Deep Vein Thrombosis/Pulmonary Embolism Present on Admission: No
[2022-07-24] MEDS: DEXTROSE 5%-1/2NS 1,000 ML IV SCH ×2 (04:19→12:04)
[2022-07-24] MEDS: 0.9 % SODIUM CHLORIDE 10 ML SYRINGE IV SCH ×3 (04:20→21:53)
[2022-07-24 07:17] LABS: Basophils # (Auto) 0.03 K/mcL (0.00-0.30); Basophils % (Auto) 0.2 % (0.0-2.0); Eosinophils % (Auto) 0.7 % (0.0-7.0); Hemoglobin 10.9 g/dL (13.7-17.5); Lymphocytes # (Auto) 2.44 K/mcL (1.50-4.80); Lymphocytes % (Auto) 16.4 % (15.5-49.0); Mean Corpuscular HGB Conc 31.1 g/dL (31.0-36.0); Mean Platelet Volume 11.6 fL (8.8-12.5); Monocytes # (Auto) 1.09 K/mcL (0.10-0.90); Monocytes % (Auto) 7.3 % (1.0-12.0); Neutrophils % (Auto) 74.9 % (38.0-78.0); Platelet Count 326 K/mcL (140-440); RBC 3.57 M/mcL (4.63-6.08); Red Cell Distribution Width 14.4 % (11.5-14.5); WBC 14.9 K/mcL (4.5-11.0)
[2022-07-24 08:00] LABS: Blood Urea Nitrogen 15 mg/dL (8-23); Calcium 8.4 mg/dL (8.6-10.4); Carbon Dioxide 24 mmol/L (22-30); Chloride 114 mmol/L (96-108); Glomerular Filtration Rate 76; Glucose 123 mg/dL (70-105)
[2022-07-24] MEDS ORDERED: POTASSIUM CHLORIDE 20 MEQ in DEXTROSE 5% IN WATER 250 ML IV ONE (08:26)
[2022-07-24] MEDS: ENOXAPARIN 40 MG/0.4 ML SYRINGE SQ SCH (09:01)
[2022-07-24] MEDS: cefTRIAXone 1 GM VIAL IV SCH (09:01)
--- NOTE | 2022-07-24 10:12 | Internal Med Progress Note ---
SUBJECTIVE Subjective Patient information: Note initiated : 07/24/22 at 10:06 am Service Date, if different from initiated Date: [] Patient: Johnson Fowler a 87 y/o M admitted on 07/20/22 for Weak, failure to thrive. Chief Complaint: [] Interval history: Mr. Fowler is a 87 year old M history of advanced dementia, BPH, [facility] resident, presenting with 3-day history of altered mental status and decreased food intake. It is reported by [facility] staff that over the past 3 days, patient has progressively worsening altered mental status, decreased alertness, and decreased oral food intake. He had a similar episode in the past for multi ple times. There is a signed POLST form in his chart stating DNR comfort measures only, okay for IV fluid, does not want feeding tube, and it did not state especially whether they would want antibiotics treatments or not. Remarkable labs including a white count of 13.3, serum sodium level of 152, and urine analysis suggesting the presence of urinary tract infections. Admission request was called for comfort care measures and potentially treatment for hyponatremia and urinary tract infections. 07/21: Status changed from comfort measures only to DNR with full treatments. Blood and urine culture no growth today. Serum sodium level worsened from 1 52-1 54. Patient has still not woken up and has not been taking any oral medication or oral food or drinks. Subjective not obtainable due to clinical situations. Changed to IV fluid from half NS at 75 cc/h to D5 half NS at 100 cc/h. Continue to trend electrolytes. Continue to monitor for blood and urine culture results. We will get wound care consult for deep tissue injury to sacrum and left gluteal area. Continue to work closely with registered nurse hh case manager for placement planning. 07/22: Patient remains comatose. All cultures no growth to date. Serum sodium/potassium 149/3.0, respectively. Subjective not obtainable due to clinical situations. Continue D5 1/2NS@100cc/hr for hypernatremia. Potassium rider for hypokalemia. Daily BMP and serum Mg level to trend. Continue Rocephin while monitoring for blood and urine culture results. Continue wound care as per wound care team recs. Continue to work closely with registered nurse hh case manager for placement planning. 07/23: Urine culture: actinotignum schaalii group; blood culture no growth to date. Serum sodium/potassium 149/3.4, respectively. Patient is awake, making a few indistinguishable words. Nurse was able to feed the patient is a few bites of food, but the patient was not able to tolerate any fluid intake. Subjective not obtainable due to clinical situations. Continue D5 1/2NS@50cc/hr for hypernatremia. Potassium rider for hypokalemia. Daily BMP and serum Mg level to trend. Continue Rocephin while monitoring for blood and urine culture results. Continue wound care as per wound care team recs. Continue to work closely with registered nurse hh case manager for placement planning. 07/24: Urine culture: actinotignum schaalii group; blood culture no growth to date. Serum potassium level 2.9. Patient remains to be comatose. Not taking any oral intake including medications, food, and drinks. Subjective not obtainable due to clinical situations. Continue D5 1/2NS@50cc/hr for hypernatremia. Potassium rider for hypokalemia. Daily BMP and serum Mg level to trend. Continue Rocephin while monitoring for blood and urine culture results. Continue wound care as per wound care team recs. Continue to work closely with registered nurse hh case manager for placement planning. Encourage son DENISSE to come to see patient at the bedside to have a better understanding of prognosis in order to clarify goal of care. Constitutional Vitals: Vital Signs Temp Pulse Resp BP Pulse Ox O2 Del Method O2 Flow Rate 36.6 C 69 22 106/63 96 1 07/24/22 06:46 07/24/22 06:46 07/24/22 06:46 07/24/22 06:46 07/24/22 06:46 07/24/22 06:46 07/20/22 20:01 Period Temp Pulse Resp BP Sys/Kennedy Pulse Ox O2 Del Method O2 Flow Rate Last 24 Hr 36.6 C-37.2 C 58-69 16-22 89-106/49-91 94-97 Room Air-Room Air Intake and Output 07/23/22 07/24/22 07/24/22 19:59 03:59 11:59 Intake Total 995 Output Total 2 3 Balance -2 992 Intake & Output: Intake & Output 07/23/22 07/24/22 07/24/22 19:59 03:59 11:59 Intake Total 995 Output Total 2 3 Balance -2 992 Intake: IV 995 Dextrose 5%-1/2Ns IV Solution 1 995 ,000 ml @ 50 mls/hr IV .Q20H [facility] Rx#:[id number] Output: # of times incontinent of urine 2 3 Other: Meal Lunch Breakfast Percent of Meal Consumed bites 0% Feeding Ability Total Assistance General appearance: thin Exam: Comatose Head Head exam: Present atraumatic and normal inspection Eye Eye exam: Present normal appearance ENT ENT exam: Present mucous membranes moist, normal exam and normal external ear exam Neck Neck exam: Present normal inspection Respiratory Respiratory exam: Present normal respiratory exam Cardiovascular Cardiovascular exam: Present normal rate and rhythm GI/Abdominal GI/Abdominal exam: Present normal bowel sounds Back Exam Back exam: Present normal inspection Neurological Exam Additional comments: Comatose Psychiatric Additional comments: not assessed due to clinical situations Skin Skin exam: Present warm; Absent intact Additional comments: Sacral and gluteal ulcers OBJ DATA Labs CBC & Chem 7: 07/24/22 05:39 07/24/22 05:39 Labs: Abnormal Lab Results 07/24/22 07/24/22 07/23/22 05:39 05:39 06:25 WBC 14.9 H 15.2 H RBC 3.57 L 3.52 L Hgb 10.9 L 10.4 L Hct 35.0 L 33.7 L MCHC 30.9 L Immature Gran % (Auto) 0.6 H [place] # (Auto) 1.09 H 1.06 H Immature Gran # 0.08 H 0.09 H Absolute Neutrophils 11.14 H 11.56 H Sodium 148 H Potassium 2.9 L* Chloride 114 H Anion Gap Glucose 123 H Calcium 8.4 L 07/23/22 07/22/22 07/22/22 05:46 05:37 05:37 WBC 14.3 H RBC 3.56 L Hgb 11.3 L Hct 34.1 L MCHC Immature Gran % (Auto) 0.9 H [place] # (Auto) 1.03 H Immature Gran # 0.13 H Absolute Neutrophils 10.67 H Sodium 149 H 149 H Potassium 3.0 L Chloride 115 H 117 H Anion Gap 7.0 L Glucose 133 H 171 H Calcium 8.5 L 8.2 L Meds: Medications Acetaminophen (Acetaminophen 325 Mg Tablet) 650 mg PO Q6HP PRN; Protocol PRN Reason: Per Pain Protocol/Fever > 101 Albuterol/Ipratropium (Ipratropium/Albuterol 3 Ml Ampul.Neb) 3 ml NEB Q4HRT PRN PRN Reason: Wheezing Ceftriaxone Sodium (Ceftriaxone 1 Gm Vial) 1 gm IV Q24H [facility] Last Admin: 07/24/22 09:01 Dose: 1 gm Docusate Sodium (Docusate Sodium 100 Mg Capsule) 100 mg PO BID [facility] Last Admin: 07/23/22 22:04 Dose: 100 mg Donepezil HCl (Donepezil 10 Mg Tablet) 10 mg PO HS [facility] Last Admin: 07/23/22 22:02 Dose: 10 mg Enoxaparin Sodium (Enoxaparin 40 Mg/0.4 Ml Syringe) 40 mg SQ DAILY [facility] Last Admin: 07/24/22 09:01 Dose: 40 mg Finasteride (Finasteride 5 Mg Tablet) 5 mg PO DAILY [facility] Last Admin: 07/23/22 08:09 Dose: Not Given Glucose Oxid/Lactoperoxid/Muramidas (Lactoperoxi/Gluc Oxid/Pot Thio 1 Each Gel..Ea.) 1 each TOPICAL PRN PRN PRN Reason: Dry Mouth Dextrose/Sodium Chloride (Dextrose 5%-1/2ns Iv Solution) 1,000 mls @ 50 mls/hr IV .Q20H [facility] Last Admin: 07/24/22 04:19 Dose: 50 mls/hr Potassium Chloride 20 meq/ (Dextrose) 260 mls @ 130 mls/hr IV ONCE ONE Stop: 07/24/22 10:25 Lorazepam (Lorazepam 2 Mg/Ml Vial) 0 mg IV Q1HP PRN; Protocol PRN Reason: ANXIETY/SEDATION Memantine (Memantine 10 Mg Tablet) 5 mg PO QAM [facility] Last Admin: 07/23/22 08:09 Dose: Not Given Morphine Sulfate (Morphine 4 Mg/Ml Vial) 2 - 6 mg IV Q1HP PRN; Protocol PRN Reason: Per Pain Protocol Nystatin (Nystatin Powder Bottle 15gm) 1 dose TOPICAL TIDP PRN PRN Reason: groin rash Ondansetron HCl (Ondansetron 4 Mg/2 Ml Vial) 4 mg IV Q6HP PRN PRN Reason: Nausea And Vomiting Senna (Sennosides 1 Tablet) 2 tab PO HS [facility] Last Admin: 12/11/22 22:06 Dose: 2 tab Sertraline HCl (Sertraline 50 Mg Tablet) 25 mg PO QHS [facility] Last Admin: 07/23/22 22:02 Dose: 25 mg Sodium Chloride (0.9 % Sodium Chloride 10 Ml Syringe) 10 ml IV Q8 [facility] Last Admin: 07/24/22 04:20 Dose: Not Given Tamsulosin HCl (Tamsulosin 0.4 Mg Capsule) 0.4 mg PO QDAY [facility] Last Admin: 07/23/22 08:09 Dose: Not Given Trazodone HCl (Trazodone Hcl 50 Mg Tablet) 25 mg PO HSP PRN PRN Reason: Insomnia A/P Assessment and plan (1) Comfort measures only status: Status: Acute (2) Dementia: Status: Chronic Comment: Advanced, likely Alzheimer's disease. Living at [facility] Qualifiers: Dementia type: unspecified type Dementia behavioral disturbance: without behavioral disturbance Qualified Code(s): F03.90 - Unspecified dementia without behavioral disturbance (3) BPH (benign prostatic hyperplasia): Status: Acute (4) Hypernatremia: Status: Acute (5) Adult failure to thrive: Status: Acute (6) Decubitus ulcer: Status: Acute (7) Hypokalemia: Status: Acute Narrative A/P Narrative: Assessment and Plans: 1. Adult failure to thrive, advanced dementia: Inpatient med surg Encourage son POA to come to see patient at the bedside to have a better understanding of prognosis in order to clarify goal of care. software developer manager consult for placement planning 2. Hypernatremia: D5 1/2NS@50cc/hr Serial BMP to trend serum sodium level 3. UTI: Lactic acid 1.0 Blood culture, actinotignum schaalii group Urine culture, no growth to date cbc w/ auto diff in the morning to trend WBC Continue Rocephin D5 1/2NS@50cc/hr 4. Benign prostatic hypertrophy: Finasteride Tamsulosin 5. Decubitus ulcer, sacrum/gluteal region: Consult wound care team for wound care needs 6. Hypokalemia: Potassium rider for replacement Daily BMP to trend, repeat replacement if needed Also check serum Mg level and replace if needed GI ppx: not currently indicated DV ppx: Lovenox Code status: DNR Prognosis: poor Disposition: inpatient med surgl; registered nurse hh case manager assistance for placement planning Time Spent With Patient Time: Total time spent is greater than 50% in coordination of care (as documented) at patient's floor/unit and/or counseling patient: Total time spent with greater than 50% in coordination of care (as documented) at patient's floor/unit and/or counseling patient:: 25 - 35 minutes QUALITY VTE Deep Vein Thrombosis/Pulmonary Embolism Present on Admission: No
[2022-07-24] MEDS: FINASTERIDE 5 MG TABLET PO SCH (12:05)
[2022-07-24] MEDS: DOCUSATE SODIUM 100 MG CAPSULE PO SCH ×2 (12:05→22:02)
[2022-07-24] MEDS: MEMANTINE 10 MG TABLET PO SCH (12:05)
[2022-07-24] MEDS: TAMSULOSIN 0.4 MG CAPSULE PO SCH (12:05)
--- NOTE | 2022-07-24 14:36 | Internal Med Progress Note ---
SUBJECTIVE Subjective Patient information: Note initiated : 07/24/22 at 2:32 pm Service Date, if different from initiated Date: [] Patient: Johnson Fowler a 87 y/o M admitted on 07/20/22 for Weak, failure to thrive. Chief Complaint: [] Interval history: Mr. 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 It is reported by correction staff that over the past 3 days, patient has progressively worsening altered mental status, decreased alertness, and decreased oral food intake. He had a similar episode in the past for multip le times. There is a signed POLST form in his chart stating DNR comfort measures only, okay for IV fluid, does not want feeding tube, and it did not state especially whether they would want antibiotics treatments or not. Remarkable labs including a white count of 13.3, serum sodium level of 152, and urine analysis suggesting the presence of urinary tract infections. Admission request was called for comfort care measures and potentially treatment for hyponatremia and urinary tract infections. 07/21: Status changed from comfort measures only to DNR with full treatments. Blood and urine culture no growth today. Serum sodium level worsened from 1 52-1 54. Patient has still not woken up and has not been taking any oral medication or oral food or drinks. Subjective not obtainable due to clinical situations. Changed to IV fluid from half NS at 75 cc/h to D5 half NS at 100 cc/h. Continue to trend electrolytes. Continue to monitor for blood and urine culture results. We will get wound care consult for deep tissue injury to sacrum and left gluteal area. Continue to work closely with manager of case management for placement planning. 07/22: Patient remains comatose. All cultures no growth to date. Serum sodium/potassium 149/3.0, respectively. Subjective not obtainable due to clinical situations. Continue D5 1/2NS@100cc/hr for hypernatremia. Potassium rider for hypokalemia. Daily BMP and serum Mg level to trend. Continue Rocephin while monitoring for blood and urine culture results. Continue wound care as per wound care team recs. Continue to work closely with manager of case management for placement planning. 07/23: Urine culture: actinotignum schaalii group; blood culture no growth to date. Serum sodium/potassium 149/3.4, respectively. Patient is awake, making a few indistinguishable words. Nurse was able to feed the patient is a few bites of food, but the patient was not able to tolerate any fluid intake. Subjective not obtainable due to clinical situations. Continue D5 1/2NS@50cc/hr for hypernatremia. Potassium rider for hypokalemia. Daily BMP and serum Mg level to trend. Continue Rocephin while monitoring for blood and urine culture results. Continue wound care as per wound care team recs. Continue to work closely with manager of case management for placement planning. 07/24: Urine culture: actinotignum schaalii group; blood culture no growth to date. Serum potassium level 2.9. Patient remains to be comatose. Not taking any oral intake including medications, food, and drinks. Subjective not obtainable due to clinical situations. Continue D5 1/2NS@50cc/hr for hypernatremia. Potassium rider for hypokalemia. Daily BMP and serum Mg level to trend. Continue Rocephin while monitoring for blood and urine culture results. Continue wound care as per wound care team recs. Continue to work closely with manager of case management for placement planning. Encourage son DENISSE to come to see patient at the bedside to have a better understanding of prognosis in order to clarify goal of care. Constitutional Vitals: Vital Signs Temp Pulse Resp BP Pulse Ox O2 Del Method O2 Flow Rate 98 F 61 20 99/61 95 1 07/24/22 10:55 07/24/22 10:55 07/24/22 10:55 07/24/22 10:55 07/24/22 10:55 07/24/22 10:55 07/20/22 20:01 Period Temp Pulse Resp BP Sys/Kennedy Pulse Ox O2 Del Method O2 Flow Rate Last 24 Hr 97.8 F-99 F 61-69 16-22 89-106/49-91 94-97 Room Air-Room Air Intake and Output 07/24/22 07/24/22 07/24/22 03:59 11:59 19:59 Intake Total 995 260 Output Total 4 Balance 991 260 Intake & Output: Intake & Output 07/24/22 07/24/22 07/24/22 03:59 11:59 19:59 Intake Total 995 260 Output Total 4 Balance 991 260 Intake: IV 995 260 Dextrose 5%-1/2Ns IV Solution 1 995 ,000 ml @ 50 mls/hr IV .Q20H [facility] Rx#:[id number] Potassium Chloride 20 Meq In 260 Dextrose 5% in Water 250 ml @ 130 mls/hr IV ONCE ONE Rx#: [id number] Output: # of times incontinent of urine 4 Other: Meal Breakfast Lunch Percent of Meal Consumed 0% 0% Feeding Ability Total Assistance Exam: General: , No acute Distress Eyes/N/T: EOMI, Head/Neck: neck supple, CV: RRR, No murmurs, Pulm: Clear b/l, no wheezing/rhonchi/rales Abd: soft, nontender, +BS x4 Ext: no clubbing/cyanosis/edema Neuro: , no focal deficits, moves all extremities, Skin: warm/dry OBJ DATA Labs CBC & Chem 7: 07/24/22 05:39 07/24/22 05:39 Labs: Abnormal Lab Results 07/24/22 07/24/22 07/23/22 05:39 05:39 06:25 WBC 14.9 H 15.2 H RBC 3.57 L 3.52 L Hgb 10.9 L 10.4 L Hct 35.0 L 33.7 L MCHC 30.9 L Immature Gran % (Auto) 0.6 H [place] # (Auto) 1.09 H 1.06 H Immature Gran # 0.08 H 0.09 H Absolute Neutrophils 11.14 H 11.56 H Sodium 148 H Potassium 2.9 L* Chloride 114 H Anion Gap Glucose 123 H Calcium 8.4 L 07/23/22 07/22/22 07/22/22 05:46 05:37 05:37 WBC 14.3 H RBC 3.56 L Hgb 11.3 L Hct 34.1 L MCHC Immature Gran % (Auto) 0.9 H [place] # (Auto) 1.03 H Immature Gran # 0.13 H Absolute Neutrophils 10.67 H Sodium 149 H 149 H Potassium 3.0 L Chloride 115 H 117 H Anion Gap 7.0 L Glucose 133 H 171 H Calcium 8.5 L 8.2 L Meds: Medications Acetaminophen (Acetaminophen 325 Mg Tablet) 650 mg PO Q6HP PRN; Protocol PRN Reason: Per Pain Protocol/Fever > 101 Albuterol/Ipratropium (Ipratropium/Albuterol 3 Ml Ampul.Neb) 3 ml NEB Q4HRT PRN PRN Reason: Wheezing Ceftriaxone Sodium (Ceftriaxone 1 Gm Vial) 1 gm IV Q24H [facility] Last Admin: 07/24/22 09:01 Dose: 1 gm Docusate Sodium (Docusate Sodium 100 Mg Capsule) 100 mg PO BID [facility] Last Admin: 07/24/22 12:05 Dose: Not Given Donepezil HCl (Donepezil 10 Mg Tablet) 10 mg PO HS [facility] Last Admin: 07/23/22 22:02 Dose: 10 mg Enoxaparin Sodium (Enoxaparin 40 Mg/0.4 Ml Syringe) 40 mg SQ DAILY [facility] Last Admin: 07/24/22 09:01 Dose: 40 mg Finasteride (Finasteride 5 Mg Tablet) 5 mg PO DAILY [facility] Last Admin: 07/24/22 12:05 Dose: Not Given Glucose Oxid/Lactoperoxid/Muramidas (Lactoperoxi/Gluc Oxid/Pot Thio 1 Each Gel..Ea.) 1 each TOPICAL PRN PRN PRN Reason: Dry Mouth Dextrose/Sodium Chloride (Dextrose 5%-1/2ns Iv Solution) 1,000 mls @ 50 mls/hr IV .Q20H [facility] Last Admin: 07/24/22 12:04 Dose: Not Given Lorazepam (Lorazepam 2 Mg/Ml Vial) 0 mg IV Q1HP PRN; Protocol PRN Reason: ANXIETY/SEDATION Memantine (Memantine 10 Mg Tablet) 5 mg PO QAM [facility] Last Admin: 07/24/22 12:05 Dose: Not Given Morphine Sulfate (Morphine 4 Mg/Ml Vial) 2 - 6 mg IV Q1HP PRN; Protocol PRN Reason: Per Pain Protocol Nystatin (Nystatin Powder Bottle 15gm) 1 dose TOPICAL TIDP PRN PRN Reason: groin rash Ondansetron HCl (Ondansetron 4 Mg/2 Ml Vial) 4 mg IV Q6HP PRN PRN Reason: Nausea And Vomiting Senna (Sennosides 1 Tablet) 2 tab PO HS [facility] Last Admin: 07/23/22 22:06 Dose: 2 tab Sertraline HCl (Sertraline 50 Mg Tablet) 25 mg PO QHS [facility] Last Admin: 07/23/22 22:02 Dose: 25 mg Sodium Chloride (0.9 % Sodium Chloride 10 Ml Syringe) 10 ml IV Q8 [facility] Last Admin: 07/24/22 14:08 Dose: Not Given Tamsulosin HCl (Tamsulosin 0.4 Mg Capsule) 0.4 mg PO QDAY [facility] Last Admin: 07/24/22 12:05 Dose: Not Given Trazodone HCl (Trazodone Hcl 50 Mg Tablet) 25 mg PO HSP PRN PRN Reason: Insomnia A/P Narrative A/P Narrative: Assessment and Plans: *Adult failure to thrive & Advanced Dementia: -Encourage son (POA) to come to see pt at bedside to have better understanding of prognosis in order to clarify goal of care -records analysis manager consult for placement planning *Hypernatremia: -D5 1/2NS@50cc/hr , Serial BMP to trend serum sodium level *UTI (actinotignum schaalii group): -cbc w/ auto diff in the morning to trend WBC -Continue Rocephin *Decubitus ulcer, sacrum/gluteal region: -Consult wound care team for wound care needs *Hypokalemia: -Potassium rider for replacement , Daily BMP to trend, repeat replacement if needed -Monitor replace other electrolytes *ppx: Lovenox Code status: DNR Prognosis: poor Time Spent With Patient Time: Total time spent is greater than 50% in coordination of care (as documented) at patient's floor/unit and/or counseling patient: QUALITY VTE Deep Vein Thrombosis/Pulmonary Embolism Present on Admission: No
[2022-07-24] MEDS: DONEPEZIL 10 MG TABLET PO SCH (22:02)
[2022-07-24] MEDS: SERTRALINE 50 MG TABLET PO SCH (22:02)
[2022-07-24] MEDS: SENNOSIDES 1 TABLET PO SCH (22:02)
[2022-07-25] MEDS: DEXTROSE 5%-1/2NS 1,000 ML IV SCH (00:37)
[2022-07-25] MEDS: 0.9 % SODIUM CHLORIDE 10 ML SYRINGE IV SCH (04:23)
[2022-07-25 07:32] LABS: Basophils # (Auto) 0.04 K/mcL (0.00-0.30); Basophils % (Auto) 0.3 % (0.0-2.0); Eosinophils # (Auto) 0.18 K/mcL (0.00-0.70); Eosinophils % (Auto) 1.4 % (0.0-7.0); Hematocrit 32.7 % (40.1-51.0); Hemoglobin 10.2 g/dL (13.7-17.5); Lymphocytes # (Auto) 2.62 K/mcL (1.50-4.80); Lymphocytes % (Auto) 20.9 % (15.5-49.0); Mean Cell Volume 94.5 fL (80.0-100.0); Mean Corpuscular HGB Conc 31.2 g/dL (31.0-36.0); Mean Platelet Volume 11.8 fL (8.8-12.5); Monocytes # (Auto) 1.04 K/mcL (0.10-0.90); Monocytes % (Auto) 8.3 % (1.0-12.0); Neutrophils % (Auto) 68.7 % (38.0-78.0); Platelet Count 369 K/mcL (140-440); RBC 3.46 M/mcL (4.63-6.08); Red Cell Distribution Width 14.2 % (11.5-14.5); WBC 12.5 K/mcL (4.5-11.0)
[2022-07-25 08:02] LABS: ALT/SGPT 9 U/L (<40); AST/SGOT 15 U/L (<40); Albumin 2.3 gm/dL (3.2-5.2); Albumin/Globulin Ratio 0.7 (1.0-2.3); Alkaline Phosphatase 60 U/L (39-117); Bilirubin,Direct < 0.2 mg/dL (0-0.3); Bilirubin,Total 0.3 mg/dL (0.1-1.0); Blood Urea Nitrogen 10 mg/dL (8-23); Calcium 8.2 mg/dL (8.6-10.4); Carbon Dioxide 25 mmol/L (22-30); Chloride 115 mmol/L (96-108); Globulin 3.3 gm/dL (2.2-3.7); Glomerular Filtration Rate 76; Glucose 107 mg/dL (70-105); Lactate Dehydrogenase 151 U/L (135-225); Phosphorous 2.1 mg/dL (2.5-4.5); Triglycerides 155 mg/dL (<150); Uric Acid 3.9 mg/dL (2.5-8.0)
[2022-07-25] MEDS ORDERED: POTASSIUM CHLORIDE 20 MEQ TABLET PO ONE (08:19)
[2022-07-25] MEDS ORDERED: POTASSIUM PHOSPHATE 20 MEQ in DEXTROSE 5% IN WATER 250 ML IV ONE (08:21)
--- NOTE | 2022-07-25 08:21 | Internal Med Progress Note ---
SUBJECTIVE Subjective Patient information: Note initiated : 07/25/22 at 8:15 am Service Date, if different from initiated Date: [] Patient: Johnson Fowler a 87 y/o M admitted on 07/20/22 for Weak, failure to thrive. Chief Complaint: [] Interval history: Mr. Fowler is a 87 year old M history of advanced dementia, BPH, skilled nursing resident, presenting with 3-day history of altered mental status and decreased food intake. It is reported by skilled nursing staff that over the past 3 days, patient has progressively worsening altered mental status, decreased alertness, and decreased oral food intake. He had a similar episode in the past for multip le times. There is a signed POLST form in his chart stating DNR comfort measures only, okay for IV fluid, does not want feeding tube, and it did not state especially whether they would want antibiotics treatments or not. Remarkable labs including a white count of 13.3, serum sodium level of 152, and urine analysis suggesting the presence of urinary tract infections. Admission request was called for comfort care measures and potentially treatment for hyponatremia and urinary tract infections. 07/21: Status changed from comfort measures only to DNR with full treatments. Blood and urine culture no growth today. Serum sodium level worsened from 1 52-1 54. Patient has still not woken up and has not been taking any oral medication or oral food or drinks. Subjective not obtainable due to clinical situations. Changed to IV fluid from half NS at 75 cc/h to D5 half NS at 100 cc/h. Continue to trend electrolytes. Continue to monitor for blood and urine culture results. We will get wound care consult for deep tissue injury to sacrum and left gluteal area. Continue to work closely with shelter case manager for placement planning. 07/22: Patient remains comatose. All cultures no growth to date. Serum sodium/potassium 149/3.0, respectively. Subjective not obtainable due to clinical situations. Continue D5 1/2NS@100cc/hr for hypernatremia. Potassium rider for hypokalemia. Daily BMP and serum Mg level to trend. Continue Rocephin while monitoring for blood and urine culture results. Continue wound care as per wound care team recs. Continue to work closely with shelter case manager for placement planning. 07/23: Urine culture: actinotignum schaalii group; blood culture no growth to date. Serum sodium/potassium 149/3.4, respectively. Patient is awake, making a few indistinguishable words. Nurse was able to feed the patient is a few bites of food, but the patient was not able to tolerate any fluid intake. Subjective not obtainable due to clinical situations. Continue D5 1/2NS@50cc/hr for hypernatremia. Potassium rider for hypokalemia. Daily BMP and serum Mg level to trend. Continue Rocephin while monitoring for blood and urine culture results. Continue wound care as per wound care team recs. Continue to work closely with shelter case manager for placement planning. 07/24: Urine culture: actinotignum schaalii group; blood culture no growth to date. Serum potassium level 2.9. Patient remains to be comatose. Not taking any oral intake including medications, food, and drinks. Subjective not obtainable due to clinical situations. Continue D5 1/2NS@50cc/hr for hypernatremia. Potassium rider for hypokalemia. Daily BMP and serum Mg level to trend. Continue Rocephin while monitoring for blood and urine culture results. Continue wound care as per wound care team recs. Continue to work closely with shelter case manager for placement planning. Encourage son PORoshni to come to see patient at the bedside to have a better understanding of prognosis in order to clarify goal of care. 07/25 Leukocytosis slowly improving. Changed IV fluids to D5 water for hypernatremia. Follow-up chemistry. Not taking food and drink orally well. Hypokalemia and hypernatremia and hyperchloremia. Mildly low Phos. Awaiting POA to visit at bedside to clarify goals. Review of Systems: Unable to obtain as patient is minimally responsive Constitutional Vitals: Vital Signs Temp Pulse Resp BP Pulse Ox O2 Del Method O2 Flow Rate 97.0 F 98 H 16 110/60 98 1 07/25/22 07:45 07/25/22 07:45 07/25/22 03:49 07/25/22 07:45 07/25/22 07:45 07/25/22 07:45 07/20/22 20:01 Period Temp Pulse Resp BP Sys/Kennedy Pulse Ox O2 Del Method O2 Flow Rate Last 24 Hr 97.0 F-98.1 F 54-99 14-22 89-110/47-61 91-99 Room Air-Room Air Intake and Output 07/24/22 07/25/22 07/25/22 19:59 03:59 11:59 Intake Total 260 1000 Output Total 3 Balance 260 997 Intake & Output: Intake & Output 07/24/22 07/25/22 07/25/22 19:59 03:59 11:59 Intake Total 260 1000 Output Total 3 Balance 260 997 Intake: IV 260 1000 Dextrose 5%-1/2Ns IV Solution 1 1000 ,000 ml @ 50 mls/hr IV .Q20H TERESA Rx#:[id number] Potassium Chloride 20 Meq In 260 Dextrose 5% in Water 250 ml @ 130 mls/hr IV ONCE ONE Rx#: [id number] Oral 0 Output: # of times incontinent of urine 3 Other: Meal Lunch Percent of Meal Consumed 0% Urine Odor Normal Exam: General: Nonverbal, No acute Distress Eyes/N/T: Head/Neck: neck supple, CV: RRR, No murmurs, Pulm: Clear b/l, no wheezing/rhonchi/rales Abd: soft, nontender, +BS x4 Ext: no clubbing/cyanosis/edema Neuro: Patient appears to be sleeping but when I notched him he will rouse m ildly but does not open his eyes. When asking the questions he will mumble but I do not understand his speech, of note his dentures are not in but he is still minimally responsive regardless, spontaneously moves extremities Skin: warm/dry OBJ DATA Labs CBC & Chem 7: 07/25/22 05:52 07/25/22 05:51 Labs: Abnormal Lab Results 07/25/22 07/25/22 07/24/22 05:52 05:51 05:39 WBC 12.5 H RBC 3.46 L Hgb 10.2 L Hct 32.7 L MCHC Immature Gran % (Auto) Todd # (Auto) 1.04 H Immature Gran # Absolute Neutrophils 8.59 H Sodium 149 H 148 H Potassium 3.1 L 2.9 L* Chloride 115 H 114 H Anion Gap Glucose 107 H 123 H Calcium 8.2 L 8.4 L Phosphorus 2.1 L GGT 3 L Total Protein 5.6 L Albumin 2.3 L Albumin/Globulin Ratio 0.7 L Triglycerides 155 H 07/24/22 07/23/22 07/23/22 05:39 06:25 05:46 WBC 14.9 H 15.2 H RBC 3.57 L 3.52 L Hgb 10.9 L 10.4 L Hct 35.0 L 33.7 L MCHC 30.9 L Immature Gran % (Auto) 0.6 H Todd # (Auto) 1.09 H 1.06 H Immature Gran # 0.08 H 0.09 H Absolute Neutrophils 11.14 H 11.56 H Sodium 149 H Potassium Chloride 115 H Anion Gap 7.0 L Glucose 133 H Calcium 8.5 L Phosphorus GGT Total Protein Albumin Albumin/Globulin Ratio Triglycerides Meds: Medications Acetaminophen (Acetaminophen 325 Mg Tablet) 650 mg PO Q6HP PRN; Protocol PRN Reason: Per Pain Protocol/Fever > 101 Albuterol/Ipratropium (Ipratropium/Albuterol 3 Ml Ampul.Neb) 3 ml NEB Q4HRT PRN PRN Reason: Wheezing Ceftriaxone Sodium (Ceftriaxone 1 Gm Vial) 1 gm IV Q24H [facility] Last Admin: 07/24/22 09:01 Dose: 1 gm Docusate Sodium (Docusate Sodium 100 Mg Capsule) 100 mg PO BID [facility] Last Admin: 07/24/22 22:02 Dose: Not Given Donepezil HCl (Donepezil 10 Mg Tablet) 10 mg PO HS [facility] Last Admin: 07/24/22 22:02 Dose: Not Given Enoxaparin Sodium (Enoxaparin 40 Mg/0.4 Ml Syringe) 40 mg SQ DAILY [facility] Last Admin: 07/24/22 09:01 Dose: 40 mg Finasteride (Finasteride 5 Mg Tablet) 5 mg PO DAILY [facility] Last Admin: 07/24/22 12:05 Dose: Not Given Glucose Oxid/Lactoperoxid/Muramidas (Lactoperoxi/Gluc Oxid/Pot Thio 1 Each Gel..Ea.) 1 each TOPICAL PRN PRN PRN Reason: Dry Mouth Dextrose/Sodium Chloride (Dextrose 5%-1/2ns Iv Solution) 1,000 mls @ 50 mls/hr IV .Q20H [facility] Last Admin: 07/25/22 00:37 Dose: 50 mls/hr Lorazepam (Lorazepam 2 Mg/Ml Vial) 0 mg IV Q1HP PRN; Protocol PRN Reason: ANXIETY/SEDATION Memantine (Memantine 10 Mg Tablet) 5 mg PO QAM [facility] Last Admin: 07/24/22 12:05 Dose: Not Given Morphine Sulfate (Morphine 4 Mg/Ml Vial) 2 - 6 mg IV Q1HP PRN; Protocol PRN Reason: Per Pain Protocol Nystatin (Nystatin Powder Bottle 15gm) 1 dose TOPICAL TIDP PRN PRN Reason: groin rash Ondansetron HCl (Ondansetron 4 Mg/2 Ml Vial) 4 mg IV Q6HP PRN PRN Reason: Nausea And Vomiting Senna (Sennosides 1 Tablet) 2 tab PO HS [facility] Last Admin: 07/24/22 22:02 Dose: Not Given Sertraline HCl (Sertraline 50 Mg Tablet) 25 mg PO QHS [facility] Last Admin: 07/24/22 22:02 Dose: Not Given Sodium Chloride (0.9 % Sodium Chloride 10 Ml Syringe) 10 ml IV Q8 [facility] Last Admin: 07/25/22 04:23 Dose: Not Given Tamsulosin HCl (Tamsulosin 0.4 Mg Capsule) 0.4 mg PO QDAY [facility] Last Admin: 07/24/22 12:05 Dose: Not Given Trazodone HCl (Trazodone Hcl 50 Mg Tablet) 25 mg PO HSP PRN PRN Reason: Insomnia A/P Narrative A/P Narrative: Assessment and Plans: *Adult failure to thrive & Advanced Dementia: -Encourage son (POA) to come to see pt at bedside to have better understanding of prognosis in order to clarify goal of care -manager spring consult for placement planning *Advanced Dementia: *Soft BP: *Hypernatremia: -hypotonic ivf, Serial BMP to trend serum sodium level *UTI (actinotignum schaalii group): -cbc w/ auto diff in the morning to trend WBC -Continue Rocephin *Decubitus ulcer, sacrum/gluteal region: -Consult wound care team for wound care needs *Hypokalemia/hypophosphatemia: -Potassium rider for replacement , Daily BMP to trend, repeat replacement if needed -Monitor replace other electrolytes *Anemia, chronic: *Goals of care: *ppx: Lovenox Code status: DNR Prognosis: poor Time Spent With Patient Time: Total time spent is greater than 50% in coordination of care (as documented) at patient's floor/unit and/or counseling patient: Total time spent with greater than 50% in coordination of care (as documented) at patient's floor/unit and/or counseling patient:: 35 - 50 minutes QUALITY VTE Deep Vein Thrombosis/Pulmonary Embolism Present on Admission: No
[2022-07-25] MEDS ORDERED: DEXTROSE 5% IN WATER 1,000 ML IV SCH (08:30)
--- NOTE | 2022-07-25 10:52 | Discharge Summary ---
Discharge Provider Provider IMPORTANT FOLLOW-UP INFORMATION FOR PCP: Patient information: Note initiated : 07/25/22 at 10:51 am Service Date, if different from initiated Date: [] Patient: Johnson Fowler 87 y/o M admitted on 07/20/22 for Weak, failure to thrive. Chief Complaint: [] Date of admission: 07/20/22 20:57 Discharge date: 07/25/22 Primary care physician: Riki Delaney DO Consults: 07/20/22 Consult to Physician [CONS] Stat Comment: Consulting Provider: Gabino López Reason For Exam: Physician to Consult COURSE Hospital Course Hospital course: Interval history: Mr. Fowler is a 87 year old M history of advanced dementia, BPH, prison resident, presenting with 3-day history of altered mental status and decreased food intake. It is reported by prison staff that over the past 3 days, patient has progressively worsening altered mental status, decreased alertness, and decreased oral food intake. He had a similar episode in the past for multiple times. There is a signed POLST form in his chart stating DNR comfort measures only, okay for IV fluid, does not want feeding tube, and it did not state especially whether they would want antibiotics treatments or not. Remarkable labs including a white count of 13.3, serum sodium level of 152, and urine analysis suggesting the presence of urinary tract infections. Admission request was called for comfort care measures and potentially treatment for hyponatremia and urinary tract infections. 07/21: Status changed from comfort measures only to DNR with full treatments. Blood and urine culture no growth today. Serum sodium level worsened from 1 52-1 54. Patient has still not woken up and has not been taking any oral medication or oral food or drinks. Subjective not obtainable due to clinical situations. Changed to IV fluid from half NS at 75 cc/h to D5 half NS at 100 cc/h. Continue to trend electrolytes. Continue to monitor for blood and urine culture results. We will get wound care consult for deep tissue injury to sacrum and left gluteal area. Continue to work closely with manager of case for placement planning. 07/22: Patient remains comatose. All cultures no growth to date. Serum sodium/potassium 149/3.0, respectively. Subjective not obtainable due to clinical situations. Continue D5 1/2NS@100cc/hr for hypernatremia. Potassium rider for hypokalemia. Daily BMP and serum Mg level to trend. Continue Rocephin while monitoring for blood and urine culture results. Continue wound care as per wound care team recs. Continue to work closely with manager of case for placement planning. 07/23: Urine culture: actinotignum schaalii group; blood culture no growth to date. Serum sodium/potassium 149/3.4, respectively. Patient is awake, making a few indistinguishable words. Nurse was able to feed the patient is a few bites of food, but the patient was not able to tolerate any fluid intake. Subjective not obtainable due to clinical situations. Continue D5 1/2NS@50cc/hr for hypernatremia. Potassium rider for hypokalemia. Daily BMP and serum Mg level to trend. Continue Rocephin while monitoring for blood and urine culture results. Continue wound care as per wound care team recs. Continue to work closely with manager of case for placement planning. 07/24: Urine culture: actinotignum schaalii group; blood culture no growth to date. Serum potassium level 2.9. Patient remains to be comatose. Not taking any oral intake including medications, food, and drinks. Subjective not obtainable due to clinical situations. Continue D5 1/2NS@50cc/hr for hypernatremia. Potassium rider for hypokalemia. Daily BMP and serum Mg level to trend. Continue Rocephin while monitoring for blood and urine culture results. Continue wound care as per wound care team recs. Continue to work closely with manager of case for placement planning. Encourage son DENISSE to come to see patient at the bedside to have a better understanding of prognosis in order to clarify goal of care. 07/25 Leukocytosis slowly improving. Changed IV fluids to D5 water for hypernatremia. Follow-up chemistry. Not taking food and drink orally well. Hypokalemia and hypernatremia and hyperchloremia. Mildly low Phos. Family understands patient's decline and understand he is end-of-life. Patient will be transition back to generations with hospice. Assessment and Plans: *Adult failure to thrive & Advanced Dementia: *Advanced Dementia: *Soft BP: *Hypernatremia: *UTI (actinotignum schaalii group): *Decubitus ulcer, sacrum/gluteal region: *Hypokalemia/hypophosphatemia: *Anemia, chronic: *Goals of care: Discharge diagnosis: Failure to thrive advanced dementia low blood pressure hypernatremia UTI Secondary discharge diagnosis: Decubitus ulcer electrolyte disturbance chronic anemia Time Spent with Patient Time attestation: Total time spent providing and/or coordinating discharge services: Time spent: Greater than 30 minutes EXAM Constitutional Vitals: Temp Pulse Resp BP Pulse Ox O2 Del Method O2 Flow Rate 97.0 F 98 H 16 110/60 98 1 07/25/22 07:45 07/25/22 07:45 07/25/22 03:49 07/25/22 07:45 07/25/22 07:45 07/25/22 07:45 07/20/22 20:01 Discharge Data Data Completed and Pending Labs on day of discharge: Labs from last 24 hours 07/25/22 07/25/22 05:52 05:51 WBC 12.5 H RBC 3.46 L Hgb 10.2 L Hct 32.7 L MCV 94.5 MCH 29.5 MCHC 31.2 RDW 14.2 Plt Count 369 MPV 11.8 Immature Gran % (Auto) 0.4 Neut % (Auto) 68.7 Lymph % (Auto) 20.9 [place] % (Auto) 8.3 Eos % (Auto) 1.4 Baso % (Auto) 0.3 Lymph # (Auto) 2.62 [place] # (Auto) 1.04 H Eos # (Auto) 0.18 Baso # (Auto) 0.04 Immature Gran # 0.05 Absolute Neutrophils 8.59 H Sodium 149 H Potassium 3.1 L Chloride 115 H Carbon Dioxide 25 Anion Gap 9.0 BUN 10 Creatinine 0.9 GFR Calculation 76 Glucose 107 H Uric Acid 3.9 Calcium 8.2 L Phosphorus 2.1 L Magnesium 2.2 Total Bilirubin 0.3 Direct Bilirubin < 0.2 GGT 3 L AST 15 ALT 9 Alkaline Phosphatase 60 Lactate Dehydrogenase 151 Total Protein 5.6 L Albumin 2.3 L Globulin 3.3 Albumin/Globulin Ratio 0.7 L Triglycerides 155 H Preliminary micro results at discharge 07/20/22 21:50 Blood Culture - Preliminary Blood 07/20/22 21:40 Blood Culture - Preliminary Blood Discharge Plan Patient/Caregiver Discharge Instructions Activity: increase activity as tolerated Diet: Regular Diet Activity Restrictions/Additional Instructions: Follow-up with hospice outpatient. Prescriptions: Continued nystatin 100,000 unit/gram powder 1 applic topical TID PRN (Reason: groin rash) Qty: 30 2RF Rx Instructions: with diaper changes donepezil 10 mg tablet 10 mg PO HS Qty: 90 3RF tamsulosin 0.4 mg capsule 0.4 mg PO QDAY Qty: 90 3RF finasteride 5 mg tablet 5 mg PO DAILY Qty: 90 3RF memantine 5 mg tablet 5 mg PO QAM Qty: 90 3RF acetaminophen 500 mg capsule 500 mg PO Q6H PRN (Reason: fever or pain) Qty: 1 0RF sertraline 25 mg tablet 25 mg PO QHS Qty: 90 1RF Follow Up Plan Follow up with: Riki Delaney DO [Primary Care Provider] - Patient Disposition: Xfer SNF Prognosis: Serious Rehab Potential: Undetermined I certify that the patient requires SNF services: Yes Overall status at discharge: patient is progressing back to baseline Discharge Orders: Discharge Order (Routine); Ordered 07/25/22 Ordered By: Woodrow Barrett [facility] VTE Deep Vein Thrombosis/Pulmonary Embolism Present on Admission: No
[2022-07-25] MEDS: DOCUSATE SODIUM 100 MG CAPSULE PO SCH (11:29)
[2022-07-25] MEDS: TAMSULOSIN 0.4 MG CAPSULE PO SCH (11:29)
[2022-07-25] MEDS: ENOXAPARIN 40 MG/0.4 ML SYRINGE SQ SCH (11:29)
[2022-07-25] MEDS: MEMANTINE 10 MG TABLET PO SCH (11:30)
[2022-07-25] MEDS: FINASTERIDE 5 MG TABLET PO SCH (11:30)
[2022-07-25] MEDS: cefTRIAXone 1 GM VIAL IV SCH (11:31)
== END 2022-07-25 13:35 | DRG 951 ==
LOC: ED 14:07 → MEDSUR 14:07 → OBSVTOIN 20:57 → MEDSUR 21:13
PROVIDERS: ADMIT Internal Medicine; ATTEND Internal Medicine